=== PATIENT | female | born 1965 | race Caucasian/White ===

== ENCOUNTER 2019-06-13 15:34 | Emergency (ER) | payer OTHER, SELFPAY ==
[2019-06-13 16:13] VITALS: BP 123/63; PULSE 84; RESP 16; TEMP 37.6; O2SAT 99
--- NOTE | 2019-06-13 16:37 | ED.SKABFB ---
HPI - Skin/Abscess/Foreign Bdy General Chief complaint: Skin/Abscess/Foreign Body Stated complaint: R/ankle pain Time Seen by Provider: 06/13/19 16:21 Source: patient and RN notes reviewed Mode of arrival: ambulatory Limitations: no limitations History of Present Illness HPI narrative: Patient presents today complaining of 2 discolored areas, 1 to her right ankle, and 1 to her right anterior lower leg that have been present for at least 6 months. Over the past several weeks, these areas have become more painful. 2 months ago, she was seen at a dental laboratory supervisor at [facility] and was given some topical steroids to apply. Patient states she is having pain to the right leg. She currently rates his leg pain 10/10 and has been taking ibuprofen without relief. She does not currently have a primary care doctor. States she does have diabetes, but does not check her blood sugars and takes no medications for diabetes. History of right ankle fracture approximately 20 years ago and reports that 1 of these areas of pain is overlying a scar from her ankle reconstruction surgery. MD complaint: discoloration Related Data Allergies Allergy/AdvReac Type Severity Reaction Status Date / Time No Known Allergies Allergy Mild Verified 02/21/18 17:33 Review of Systems Review of Systems: Narrative: CONSTITUTIONAL: Denies body aches, fever, chills, or sweats. EYES: Denies visual changes, redness, or discharge. ENT: Denies rhinorrhea, congestion, sore throat, or otalgia. CARDIOVASCULAR: Denies chest pain, palpitations, or edema. RESPIRATORY: Denies cough or dyspnea. GASTROINTESTINAL: Denies abdominal pain, nausea, vomiting, or diarrhea. GENITOURINARY: Denies dysuria or hematuria. SKIN: + Right leg pain, discoloration to lower leg. MUSCULOSKELETAL: Denies back pain, joint pain, or myalgia. NEUROLOGIC: Denies headache, numbness, tingling, or weakness. PSYCH: Denies depression or anxiety. [facility] Past Medical History Medical History (Updated 06/13/19 @ 16:41 by Aarti Juarez, [employer], ) Diabetes Kidney stone Right ankle injury Comments At time of signature, I have reviewed and agree with nursing past medical, surgical, social and family history unless otherwise noted. Please see nursing chart for further information. There is no relevant family history pertinent to the presenting complaint Exam Narrative: Exam Narrative: GENERAL: Well-appearing, well-nourished, and in no acute distress. HEAD: Normocephalic, atraumatic. EYES: EOMI. No redness or drainage. Conjunctivae normal. ENT: Mucous membranes pink and moist. NECK: Normal AROM. CHEST: No respiratory distress. EXTREMITIES: No edema, ecchymosis, erythema to the legs. Distal sensation intact. Capillary refill normal. Pedal pulses normal. Patient has an approximately 2 x 5 cm area of hyperpigmentation to the right lateral malleolus that is tender to palpation without any signs of infection. No fluctuance noted. Patient has another area of similar size to the right anterior lower leg that is also tender. There is no surrounding erythema to either area. SKIN: Warm, dry, no rash. NEURO: No focal deficits. Alert and oriented x3. Gait steady. PSYCH: Normal affect. No signs of depression or anxiety. Course Vital Signs Vital signs: Vital Signs Temperature 99.6 F 06/13/19 16:13 Pulse Rate 84 06/13/19 16:13 Respiratory Rate 16 06/13/19 16:13 Blood Pressure 123/63 06/13/19 16:13 Pulse Oximetry 99 06/13/19 16:13 Temperature 99.6 F 06/13/19 16:13 Pulse Rate 84 06/13/19 16:13 Respiratory Rate 16 06/13/19 16:13 Blood Pressure 123/63 06/13/19 16:13 Pulse Oximetry 99 06/13/19 16:13 Reviewed. Pt has been instructed to follow up with her PCP regarding her elevated blood pressure today. MDM - Skin/Abscess/Foreign Bdy Differential Diagnosis Differential diagnosis: Likely abscess of skin or subcutaneous tissue, urticaria, herpes zoster, cellulitis,
== END 2019-06-13 16:48 | disposition home or self-care (01) ==
PROVIDERS: Emergency Provider Nurse Practitioner
DX: L81.9 Disorder of pigmentation, unspecified (principal); E11.9 Type 2 diabetes mellitus without complications
CPT/HCPCS: 99213; G0463

== ENCOUNTER 2019-10-02 08:27 | Emergency (ER) | payer OTHER, SELFPAY ==
--- NOTE | ~2019-10-02 | XR_ITS ---
EXAMINATION: XR chest 2V 10/02/2019 09:09 INDICATION: Wheezing and shortness of breath PROCEDURE: 2 view chest COMPARISON: Comparison to multiple prior studies sequentially, with oldest reviewed study dated 08/03. FINDINGS: The lungs are clear. The cardiomediastinal silhouette is within normal limits. There are no pleural effusions. There is no pneumothorax suspected. IMPRESSION: 1: NO ACUTE CARDIOPULMONARY DISEASE. Reviewed, dictated and finalized at location A.
[2019-10-02 08:37] VITALS: BP 143/90; PULSE 78; RESP 18; TEMP 37; O2SAT 97
--- NOTE | 2019-10-02 08:48 | ED.GENADULT ---
HPI - General Adult General Chief complaint: Upper Respiratory Infection Stated complaint: cough Time Seen by Provider: 10/02/19 08:48 Source: patient and RN notes reviewed Mode of arrival: ambulatory Limitations: no limitations History of Present Illness HPI narrative: 54-year-old female presents with complains of PND, intermittent dry and productive cough, wheezing, and dyspnea for the past 5 days. Albuterol inhaler without relief. History of Asthma. Symptoms started when she had an asthma attack in the [place] 5 days ago. Intermittent dry cough and productive cough (clear phlegm). Rhinorrhea and nasal congestion. Denies sore throat. No high fevers, drooling, neck or throat swelling. No chest pain. Exacerbation factors consist of change in weather and increase in pollen. The patient reports she have not been diagnosed with COVID-19. The patient reports she is not waiting for the results of a COVID-19 lab test. The patient reports she do not have fever, chills, weakness, fatigue, myalgia, or facial swelling. The patient reports she do not have a worsening cough or shortness of breath. Denies chest pain. The patient reports she do not have any nausea, vomiting, abdominal pain, and diarrhea. Tolerating po intake well. Denies recent traveling. Denies concerns for COVID-19 or exposures been home since [id number] order except for essential household needs, working, and return home. At this time, patient is not suspected of having COVID-19. Some parts of this dictation were generated by voice recognition software and may contain typographical and/or grammatical inaccuracies. Related Data Home Medications Medication Instructions Recorded Confirmed albuterol sulfate 1 inh INHALATION DAILY 10/02/19 10/02/19 Allergies Allergy/AdvReac Type Severity Reaction Status Date / Time No Known Allergies Allergy Mild Verified 10/02/19 08:44 Review of Systems Review of Systems: Narrative: CONSTITUTIONAL: Denies fever, chills, sweats. EYES: Denies visual changes, redness, discharge. ENT: Complains of PND, rhinorrhea, congestion. Denies sore throat, otalgia. CARDIOVASCULAR: Denies chest pain, palpitations, edema. RESPIRATORY: Complains of dyspnea, wheezing, intermittent dry and productive cough. GASTROINTESTINAL: Denies abdominal pain, nausea, vomiting, diarrhea. GENITOURINARY: Denies dysuria, hematuria, abnormal discharge. SKIN: Denies rash or itching. MUSCULOSKELETAL: Denies acute back pain, joint pain, or myalgia. NEUROLOGIC: Denies numbness or focal weakness. PSYCHIATRIC: Denies anxiety or depression. All systems reviewed & are unremarkable except as noted in HPI and below. ON LICENSE OF [facility] Past Medical History Medical History (Updated 10/02/19 @ 09:14 by NOHEMI Awan) Asthma Diabetes Kidney stone Right ankle injury Surgical History Surgical History (Updated 10/02/19 @ 09:09 by NOHEMI Awan) History of adenoidectomy History of ankle surgery RT ankle-1998 History of lithotripsy 2009 History of tonsillectomy Family History Family History (Updated 10/02/19 @ 09:09 by NOHEMI Awan) Father , Kidney problems No problems noted. Mother Acute myocardial infarction Heart disease Asthma Social History Social History (Updated 10/02/19 @ 09:12 by NOHEMI Awan) Smoking status: Former smoker Second hand tobacco smoke exposure: No Alcohol intake: never Substance use: never Gender identity (if verbalized by the patient): Female Comments At time of signature, agree with nurse past medical, surgical, social, and family history. There is no relevant family history pertinent to the presenting complaint. Exam Narrative: Exam Narrative: GENERAL: This is a well-nourished, well-developed patient, in no apparent distress. Talks in full sentences and ambulates with steady gait without dyspnea. HEAD: normocephalic, atraumatic. EYES: PERRL. Sc
[2019-10-02] MEDS: IPRATROPIUM BR 0.02% INH SOLN 0.5 MG/2.5 ML VIAL INHALATION (09:14)
[2019-10-02] MEDS: predniSONE 20 MG TABLET 60 MG PO (09:14)
[2019-10-02] MEDS: ALBUTEROL SULFATE NEB 2.5 MG/3 ML INH INHALATION (09:14)
--- NOTE | 2019-10-02 09:28 | PC.NURSE ---
28- Went to check on pt she was having a conversation on her cell phone. Re-educated pt on how to have a breathing treatment, mouth piece fully in mouth, with good deep breaths.
== END 2019-10-02 09:55 | disposition home or self-care (01) ==
PROVIDERS: Emergency Provider Nurse Practitioner Family
DX: J45.901 Unspecified asthma with (acute) exacerbation (principal); E11.9 Type 2 diabetes mellitus without complications; Z87.891 Personal history of nicotine dependence; R03.0 Elevated blood-pressure reading, without diagnosis of hypertension
CPT/HCPCS: 71046; 94640; 99213; G0463; J7512

== ENCOUNTER 2020-08-13 11:12 | Emergency (ER) | payer OTHER, SELFPAY ==
[2020-08-13] VITALS (9 sets, daily range): BP systolic 110–182; BP diastolic 84–93; PULSE 81–94; RESP 16–25; TEMP 36.4; O2SAT 98–100
--- NOTE | ~2020-08-13 | XR_ITS ---
EXAMINATION: XR chest 2V DATE: 08/13/2020 11:54 INDICATION: Left chest pain. TECHNIQUE: Frontal and lateral views of the chest were obtained. COMPARISON: Chest 2 views 10/02/2019, chest CT 08/24/2016 FINDINGS: The chest demonstrates clear lungs without pneumonia, pleural effusion, or pneumothorax. Th e heart size is normal. IMPRESSION: 1. No acute cardiopulmonary disease. Reviewed, dictated and finalized at location B.
--- NOTE | 2020-08-13 11:20 | ECG_ITS ---
Measurements Intervals [place] Rate: 91 P: 24 UT: 158 QRS: -19 QRSD: 96 T: 73 QT: 352 QTc: 434 Interpretive Statements SINUS RHYTHM BASELINE ARTIFACT- I, II, III, AVR, AVL, AVF, V1-V6 BORDERLINE ECG Electronically Signed On 08-13-2020 11:46:59 CDT by Dung Reyes D.O.
--- NOTE | 2020-08-13 11:31 | ED.CHESTPAIN ---
HPI - Chest Pain General Chief Complaint: Chest Pain Stated Complaint: chest pain x 3 days, heavy Time Seen by Provider: 08/13/20 11:23 History of Present Illness HPI narrative: Left sided chest pain for the past 4 days. Heavy. Radiates into the left arm and posterior neck. Associated with mild shortness of breath on activity. Worse with laeft arm movement, especially shoulder abduction. No cough, congestion, fever, nausea, injury. Related Data Home Medications Medication Instructions Recorded Confirmed No Home Medications 08/13/20 08/13/20 Allergies Allergy/AdvReac Type Severity Reaction Status Date / Time No Known Allergies Allergy Mild Verified 08/13/20 11:23 Review of Systems Review of Systems: All systems reviewed & are unremarkable except as noted in HPI and below Constitutional: Constitutional: Denies chills, Denies fever(s) and Denies weakness Eyes: Eyes: Reports no additional eye complaints ENT: Reports system reviewed and no additional complaints, except as documented Cardiovascular: Cardiovascular: Reports as per HPI Respiratory: Respiratory: Reports as per HPI Gastrointestinal: Gastrointestinal: Reports as per HPI Genitourinary: Genitourinary: Reports no additional female genitourinary complaints Musculoskeletal: Musculoskeletal: Reports as per HPI Neurologic: Denies confusion, Denies dizziness and Denies weakness [facility] Past Medical History Medical History Asthma Diabetes Kidney stone Right ankle injury Surgical History Surgical History History of adenoidectomy History of ankle surgery RT ankle-1998 History of lithotripsy 2009 History of tonsillectomy Family History Family History Father , Kidney problems No problems noted. Mother Acute myocardial infarction Heart disease Asthma Social History Social History Smoking status: Former smoker Second hand tobacco smoke exposure: No Alcohol intake: never Substance use: never Gender identity (if verbalized by the patient): Female Exam Const: General: no acute distress and alert Nutritional Appearance: obese Orientation/consciousness: patient oriented x3 HENMT: Head: normal to inspection Neck: Neck: normal visual inspection Chest: Chest palpation & inspection: tenderness pectoral muscle on the left Resp: Effort & Inspection: normal respiratory effort Auscultation: clear to auscultation bilaterally Cardio: Rate: regular rate Rhythm: regular rhythm GI: GI Palp: Yes Soft to palpation and No Tenderness to palpation present (GI) Skin: General skin exam: normal color Neuro: General: patient oriented x3, moves all extremities and CN's II-XI intact bilaterally Speech: normal speech Extrem: General: edema bilateral (trace) Course Vital Signs Vital signs: Vital Signs Temperature 36.4 C 08/13/20 11:20 Pulse Rate 91 08/13/20 11:20 Respiratory Rate 18 08/13/20 11:20 Blood Pressure 182/93 H 08/13/20 11:20 Pulse Oximetry 100 08/13/20 11:20 Temperature 36.4 C 08/13/20 11:20 Pulse Rate 94 08/13/20 11:24 Respiratory Rate 18 08/13/20 11:20 Blood Pressure 182/93 H 08/13/20 11:20 Pulse Oximetry 100 08/13/20 11:20 MDM - Chest Pain MDM Narrative Medical decision making narrative: Pain seems to be musculoskeletal, it is reproducible on palpation and worsens with arm movement. EKG completely normal. Troponin negative. Differential Diagnosis Differential diagnosis: Likely pneumothorax, unstable angina pectoris, atypical chest pain, st elevation myocardial infarction and chest pain Medical Records Data Attestation: I reviewed the patient's medical records. Lab Data Attestation: I reviewed the patient's lab results. Result
[2020-08-13 11:35] LABS: Basophils Percent Auto 0.3 % (0.2-1.2); Eosinophils Absolute Auto 0.4 K/mm3 (0-0.3); Eosinophils Percent Auto 5.4 % (0-4.4); Hematocrit 44.3 % (37.0-47.0); Hemoglobin 14.2 g/dL (12.0-15.0); Immature Granulocyte Absolute 0.01 K/mm3 (0.00-0.031); Immature Granulocyte Percent A 0.1 % (0-0.5); Lymphocytes Absolute Auto 2.57 K/mm3 (0.9-3.2); Lymphocytes Percent Auto 37.3 % (18.3-44.2); Mean Corpuscular HGB Conc 32.1 g/dl (32-36); Mean Corpuscular Hemoglobin 30.1 pg (26-34); Mean Corpuscular Volume 94.1 fl (80-100); Mean Platelet Volume 9.9 fl (7.4-10.4); Monocytes Absolute Auto 0.6 K/mm3 (0.1-0.6); Monocytes Percent Auto 8.7 % (2.6-8.5); Neutrophils Absolute Auto 3.3 K/mm3 (1.3-6.7); Neutrophils Percent Auto 48.2 % (45.5-73.1); Platelet Count Result 248 k/mm3 (150-375); Red Blood Count 4.71 M/mm3 (4.2-5.4); Red Cell Distribution Width 12.9 % (11.5-14.5); White Blood Count 6.9 K/mm3 (4.5-10.0)
[2020-08-13 11:48] LABS: INR 0.9; Prothrombin Time 12.6 Seconds (11.1-14.7)
[2020-08-13 11:49] LABS: Anion Gap 4 mmol/L (8-16); Blood Urea Nitrogen 19 mg/dL (7-17); Calcium 9.3 mg/dL (8.4-10.2); Carbon Dioxide 33 mmol/L (22-30); Chloride 103 mmol/L (98-107); Estimated CRCL calculation 79 ml/min; Estimated Glomerular Filt Rate 58; Glucose 112 mg/dL (65-105); Partial Thromboplastin Time 25.3 SECONDS (22.3-36.8); Potassium 4.1 mmol/L (3.4-5.0); Sodium 140 mmol/L (137-145)
[2020-08-13 12:02] LABS: Troponin I < 0.012 ng/mL (0.000-0.034)
[2020-08-13] MEDS: KETOROLAC 30 MG/ML VIAL (*BKC) IV PUSH (12:14)
== END 2020-08-13 12:46 | disposition home or self-care (01) ==
PROVIDERS: Emergency Provider Emergency Medicine; PCP Family Medicine
DX: R07.89 Other chest pain (principal); E11.9 Type 2 diabetes mellitus without complications; J45.909 Unspecified asthma, uncomplicated; Z87.442 Personal history of urinary calculi; Z87.891 Personal history of nicotine dependence; R94.31 Abnormal electrocardiogram [ECG] [EKG]
CPT/HCPCS: 36415; 71046; 80048; 84484; 85025; 85610; 85730; 93005; 96374; 99284; J1885

== ENCOUNTER 2020-12-20 08:10 | Outpatient (CLI) | payer OTHER, SELFPAY ==
--- NOTE | ~2020-12-20 | XR_ITS ---
EXAMINATION: XR chest 2V DATE: 12/20/2020 08:37 INDICATION: Persistent cough TECHNIQUE: PA and lateral views of the chest are obtained. COMPARISON: 08/13/2020 FINDINGS: The lungs are free of acute opacities. There is no pleural effusion or pneumothorax. The ca rdiomediastinal silhouette is normal. There is mild thoracic spondylosis. IMPRESSION: 1. No acute cardiopulmonary abnormality. Reviewed, dictated and finalized at location A.
== END 2020-12-20 08:11 | disposition home or self-care (01) ==
PROVIDERS: PCP Family Medicine; Visit Provider Physician Assistant
DX: R05 Cough (principal)
CPT/HCPCS: 71046

== ENCOUNTER 2021-09-26 12:07 | Emergency (ER) | payer OTHER, SELFPAY ==
[2021-09-26 12:32] VITALS: BP 129/79; PULSE 95; RESP 18; TEMP 36.7; O2SAT 99
--- NOTE | 2021-09-26 12:58 | ED.ANIMALBIT ---
HPI - Animal Bite General Chief Complaint: Skin/Abscess/Foreign Body Stated Complaint: cat bite Time Seen by Provider: 09/26/21 12:40 Source: patient Mode of arrival: ambulatory Limitations: no limitations History of Present Illness HPI narrative: 56-year-old female presents with cat bite to lateral aspect of left lower leg. Cat bite happened approximately 3 days ago. Reports that she brought her cat home from a procedure at the vet and was told that it might be irritable and the cat got into a fight with her son's cat. Reports that the cat ended up biting her leg and also scratched it. Patient reports that she had amoxicillin at home and has been taking that for 2 days. Reports that she noticed increase in pain and redness today. Is concerned she may need a different antibiotic. Tetanus is up-to-date. Ambulatory with steady gait. All systems reviewed and negative except as noted above. Related Data Allergies Allergy/AdvReac Type Severity Reaction Status Date / Time No Known Allergies Allergy Mild Verified 09/26/21 12:49 Review of Systems Review of Systems: CONSTITUTIONAL: Denies fever, chills, or sweats. EYES: Denies visual changes, redness, or discharge. ENT: Denies rhinorrhea, congestion, sore throat, or otalgia. CARDIOVASCULAR: Denies chest pain, palpitations, or edema. RESPIRATORY: Denies cough or dyspnea. GASTROINTESTINAL: Denies abdominal pain, nausea, vomiting, or diarrhea. GENITOURINARY: Denies dysuria or hematuria. SKIN: Denies rash or itching. Reports cat bite to left lower leg. MUSCULOSKELETAL: Denies back pain, joint pain, or myalgia. NEUROLOGIC: Denies headache, numbness, or weakness. PSYCHIATRIC: Denies anxiety or depression. All other systems reviewed are negative, except as documented in HPI. [facility] Past Medical History Medical History Asthma Diabetes Kidney stone Right ankle injury Surgical History Surgical History History of adenoidectomy History of ankle surgery RT ankle-1998 History of lithotripsy 2009 History of tonsillectomy Family History Family History Father , Kidney problems No problems noted. Mother Acute myocardial infarction Heart disease Asthma Social History Social History Smoking status: Former smoker Second hand tobacco smoke exposure: No Alcohol intake: never Substance use: never Gender identity (if verbalized by the patient): Female Comments At time of signature, agree with nursing past medical, surgical, social and family history. There is no relevant family history pertinent to the presenting complaint. Exam Narrative: GENERAL: This is a well-nourished, well-developed patient, in no apparent distress. HEAD: normocephalic, atraumatic. EYES: PERRL. Sclera clear/white. Vision is grossly intact. EARS: External ears normal NOSE: External nose normal NECK: Neck supple, non-tender without lymphadenopathy, masses or thyromegaly. CARDIOVASCULAR: Regular rate and rhythm without murmurs, gallops, or rubs. RESPIRATORY: Clear to auscultation. Breath sounds equal bilaterally. No wheezes, rales, or rhonchi. SKIN: warm, Dry, intact with no suspicious lesions or rash, good texture and turgor. Open wound, skin avulsion to lateral aspect left lower leg. Mild erythema and swelling. No drainage. Multiple superficial scratches surrounding bite. NEURO: awake, alert, and oriented to person, place and time. There were no obvious focal neurologic abnormalities. EXTREMITIES: Normal range of motion to all extremities. Extrem: Ankle/foot/toe images: 1. cat bite, open wound/skin avulsion 2. 3. 4. 5. Course Course Level of Care: Express Care Visit Vital Signs Vital signs: Vital Signs Temperature 3
== END 2021-09-26 13:04 | disposition home or self-care (01) ==
PROVIDERS: Emergency Provider Nurse Practitioner Family
DX: S81.802A Unspecified open wound, left lower leg, initial encounter (principal); W55.01XA Bitten by cat, initial encounter; Z87.891 Personal history of nicotine dependence; E11.9 Type 2 diabetes mellitus without complications; J45.909 Unspecified asthma, uncomplicated
CPT/HCPCS: 99213; G0463

== ENCOUNTER 2024-04-28 09:35 | Emergency (ER) | payer OTHER, SELFPAY ==
[2024-04-28 09:45] VITALS: BP 135/82; PULSE 103; RESP 19; TEMP 36.4; O2SAT 98
[2024-04-28 10:21] LABS: Influenza A QL RT-PCR Positive (Negative); Influenza B QL RT-PCR Negative (Negative); RSV RNA, RT-PCR Negative (Negative); SARS-CoV-2 RNA PCR Negative (Negative)
--- NOTE | 2024-04-28 11:01 | ED.GENADULT ---
HPI - General Adult General Chief complaint: Unspecified Stated complaint: nausea, sob, cant sleep, back pain, fever Time Seen by Provider: 04/28/24 11:01 Source: patient Mode of arrival: ambulatory Limitations: no limitations History of Present Illness HPI narrative: This is a 58-year-old female that presents to the emergency department for cold symptoms. Ongoing over the last 2 days. Reports fever, cough, congestion, nausea. Reports history of asthma and has been having to use her albuterol more often Related Data Allergies Allergy/AdvReac Type Severity Reaction Status Date / Time No Known Allergies Allergy Mild Verified 09/26/21 12:49 Review of Systems Review of Systems: CONSTITUTIONAL: Denies fever ENT: Reports congestion CARDIOVASCULAR: Denies chest pain RESPIRATORY: Reports cough and dyspnea. GASTROINTESTINAL: Reports nausea All systems reviewed & are unremarkable except as noted in HPI and below PMFSH Past Medical History Medical History Asthma Diabetes Kidney stone Right ankle injury Surgical History Surgical History History of adenoidectomy History of ankle surgery RT ankle-1998 History of lithotripsy 2009 History of tonsillectomy Family History Family History Father , Kidney problems No problems noted. Mother Acute myocardial infarction Heart disease Asthma Social History Social History Smoking status: Former smoker Second hand tobacco smoke exposure: No Alcohol intake: never Substance use: never Living arrangements: with family Occupation/Education: occupation Gender identity (if verbalized by the patient): Female Exam Narrative: GENERAL: Well-appearing, well-nourished, and in no acute distress. HEAD: Normocephalic, atraumatic. EYES: EOMI. ENT: Nares clear, no rhinorrhea or epistaxis. Mucous membranes moist. Oropharynx without tonsillar hypertrophy exudate or other lesions. NECK: Supple. No adenopathy or masses. CHEST: No respiratory distress. Lung sounds mildly diminished with wheezing. No rales or rhonchi HEART: Regular rate and rhythm. No murmur heard. Normal peripheral pulses. EXTREMITIES: Normal range of motion. No edema. SKIN: Warm, dry, no rash. NEURO: No focal deficits. Alert and oriented x3. PSYCH: Normal mood and affect Course Course Emergency Course: Patient agrees with plan of care. Updated on her workup Vital Signs Vital signs: Vital Signs Temperature 97.6 F 04/28/24 09:45 Pulse Rate 103 H 04/28/24 09:45 Respiratory Rate 19 04/28/24 09:45 Blood Pressure 135/82 04/28/24 09:45 Pulse Oximetry 98 04/28/24 09:45 Oxygen Delivery Room Air 04/28/24 09:45 Temperature 97.6 F 04/28/24 09:45 Pulse Rate 103 H 04/28/24 09:45 Respiratory Rate 19 04/28/24 09:45 Blood Pressure 135/82 04/28/24 09:45 Pulse Oximetry 98 04/28/24 09:45 Oxygen Delivery Room Air 04/28/24 09:45 Medical Decision Making MDM Narrative Medical decision making narrative: Patient presents the emergency department for cold symptoms present over the last 2 days. She is afebrile and nontoxic appearing. Lung sounds mildly diminished with some wheezing. Given nebulizer treatment and steroid. Oxygen saturation is normal on room air. Patient found to be influenza A positive. Will be started on Tamiflu and continued on oral steroid. She is to follow up with primary provider. She was given warnings to return to the ER Differential Diagnosis Differential Diagnosis: Influenza, RSV, COVID, viral syndrome, asthma exacerbation Vital Signs Vital Signs: Vital Signs Temperature 97.6 F 04/28/24 09:45 Pulse Rate 103 H 04/28/24 09:45 Respiratory Rate 19 04/28/24 09:45 Blood Pressure 135/82 04/28/24 09:45 Pulse Oximetry 98 04/28/24 09:45 Oxygen Delivery Room Air 04/28/24 09:45 Temperature 97.6 F 04/28/24 09:45 Pulse Rate 103 H 04/28/24 09:45 Respiratory Rate 19 04/28/24 09:45 Blood Pressure 135/82 04/28/24 09:45 Pulse Oximetry 98 04/28/24 09:45 Oxygen Delivery Room Air 04/28/24 09:45 Lab Data Lab results reviewed: Yes I reviewed the patient's lab results. Labs: Lab Results 04/28/24 Range/Units 09:41 Influenza A (RT-PCR) Positive A (Negative) Influenza B (RT-PCR) Negative (Negative) RSV (RT-PCR) Negative (Negative) SARS-CoV-2 RNA (RT-PCR) Negative (Negative) Critical Care Time Critical Care Time Critical Care Time: No Discharge Plan Discharge Clinical Impression: Influenza A Acute asthma exacerbation Qualifiers: Asthma severity: unspecified severity Asthma persistence: unspecified Qualified Code(s): J45.901 - Unspecified asthma with (acute) exacerbation Patient Disposition: Home, Self-Care Condition: Stable Instructions: Asthma (ED), Influenza (ED) Additional Instructions: Return to the emergency department for worsening symptoms, or any other concerns Remain well-hydrated, get plenty of rest. Take Tylenol or Motrin [id number] for pain as needed. Flonase for nasal congestion. Zyrtec for runny nose. Lozenges or Chloraseptic spray for sore throat. Take Tamiflu as prescribed. Albuterol 2 puffs every 4-6 hours as needed for shortness of breath or wheezing. Continue oral steroid Follow up with primary care doctor Patient Language: Icelandic Prescriptions: New prednisone 20 mg tablet 40 mg PO DAILY 4 Days Qty: 8 0RF albuterol sulfate 90 mcg/actuation HFA aerosol inhaler 2 puff inhalation QID PRN (Reason: shortness of breath or wheezing) Qty: 8.5 0RF No Action amoxicillin-pot clavulanate 875-125 mg tablet 1 tablet PO BID 5 Days Qty: 10 0RF Follow-up/Referrals: UNKNOWN,DOCTOR [Primary Care Provider] -
[2024-04-28 11:12] VITALS: PULSE 100; RESP 18
[2024-04-28] MEDS: IPRATROPIUM 0.5 MG/ALBUTEROL SULFATE 2.5 MG AMPUL.NEB 3 ML INHALATION (11:12)
[2024-04-28 11:17] VITALS: PULSE 97; RESP 20
[2024-04-28] MEDS: predniSONE 20 MG TABLET 40 MG PO (11:45)
--- OUTSIDE RECORDS SUMMARY | 2024-05-04 17:06 | XMS_ITS | Encounter Summary ---
Author Organization [facility] Address [address] [place] [address] [place] [address] Care Team Providers Care Storeperson Name Role Phone Unavailable Primary Care Provider Unavailabl e Encounter Details Date Type Department Care Team (Latest Contact Info) Description 01/17/2011 12:44 PM CDT - 01/17/2011 11:59 PM CDT Hospital Encounter [facility] MATERNAL/ EVALUATION UNIT [address] [facility]. [address] [place] [address] Morris Ko MD [address] [place] [address] Clinic Discharge Disposition: Home or Self Care Social History Tobacco Use Types Packs/Day Years Used Date Smoking Tobacco: Former Cigarettes 1.5 14 0 06/21/1994 - 06/21/2008 Alcohol Use Standard Drinks/Week Comments No 0 (1 standard drink = 0.6 oz pur e alcohol) Sex and Gender Information Value Date Recorded Sex Assigned at Not on file Gender Identity Not on file Sexual Orientation Not on file documented as of this encounter Last Filed Vital Signs Vital Sign Reading Time Taken Comments Blood Pressure 120/69 01/17/2011 12:55 PM CDT Pulse 87 01/17/2011 12:55 PM CDT Temperature - - Respiratory Rate 18 01/17/2011 12:55 PM CDT Oxygen Saturation - - Inhaled Oxygen Concentration - - Weight 110.7 kg (244 lb) 01/17/2011 12:55 PM CDT Height 170.2 cm (5' 7 ) 01/17/2011 12:55 PM CDT Body Mass Index 38.22 01/17/2011 12:55 PM CDT documented in this encounter Discharge Instructions * Patient Instructions* Sara Hall - 01/17/2011 3:52 PM CDT We are moving across the street([facility]) January [address] [place] [phone] documented in this encounter H&P Notes * Morris Ko MD - 01/17/2011 2:15 PM CDT R2 BRAND LEADER Problem Visit Subjective: Shantel Del Real is a 45 y.o. female who presents for pain in her lower abdomen and pelvis since her kidney stone removal in June of 2008. She describes it as moderate, dull, constant pain worse after her menses. She takes vicodin for it which are left over from her previous surgery. It is worse on her left side and is worse in back near her kidney. She urinates and it feels gritty and like sand paper. She has a brownish discharge with her menses. She also has night sweats. Denies sudden wt gain or loss. She also complains of a spot on her left groin which increases in size during her menses. Risk Factors: wears seatbelts and negative for domestic violence Wears seatbelt? yes History of abuse? no Urinary or fecal incontinence? No Sexual dysfunction? Yes, describes pain with penetration Obstetrical history: OB History Grav Para Term Abortions TAB SAB Ect Mult Living 3 2 2 1 1 2 Obstetric Comments Office Rn Hx: Menarche at 16, regular periods every month, admits that pap is always abnormal but denies cervical procedures including biopsies, denies STDs Last Pap: in the hospital in 2008 Contraception/HRT: S/p BTL Past Medical History Diagnosis Date ??? Pyelonephritis 2008 Denies history of depression/anxiety/bipolar/schizophrenia Family History Problem Relation Age of Onset ??? Hypertension Mother ??? Hypertension Father ??? Heart Failure Mother ??? 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 Smoking status: Former Smoker -- 1.5 packs/day for 14 years Types: Cigarettes Quit date: 06/21/2008 ??? Smokeless tobacco: Not on file ??? Alcohol Use: No ??? Drug Use: Not on file ??? Sexually Active: Yes -- Male partner(s) Control/ Protection: Tubal ligation 27 yrs Immunization history: Pt states she had her tetanus in 2008, declines influenza vaccine Review of Systems Denies any problems with HEENT Admits night sweats, denies wt changes Denies chest pain, shortness of breath Admits occasional dysuria, denies muscle or joint pain Denies n/v/d/c Admit swelling in right leg Denies depression/anxiety Denies heart palpitations Objective: PHYSICAL EXAM: Vitals: 01/17/11 1255 BP: 120/69 Pulse: 87 Resp: 18 Weight: 244 lb (110.678 kg) GEN: alert, cooperative, no distress THYROID: normal to inspection and palpation CV: RRR LUNG: CTAB ABDOMEN: obese, soft, nontender, no masses, +BS Lymph Nodes: no lymphadenopathy BREAST: normal appearance, no masses or tenderness EXT: no calf tenderness, right leg with 1+pitting edema, there is a 0.5cm mass near her groin on the left which is firm but does not feel cystic PELVIC: VULVA: normal appearing vulva with no masses, tenderness or lesions, URETHRAL MEATUS: normal, no masses URETHRA: normal, non tender BLADDER: non tender VAGINA: normal appearing vagina with normal color and discharge, no lesions, CERVIX: normal appearing cervix without discharge or lesions, UTERUS: uterus is normal size, shape, consistency, not tender, limited by body habitus, ADNEXA: limited by body habitus Wet prep with no pathgens, no clue cells or yeast Assessment: Problem visit BRAND LEADER Well woman BRAND LEADER female exam. Plan: 1. Pelvic pain 1. May be endometriosis as it gets worse with menses, lump in left leg is increased in size with menses, may need laparoscopy at some point to diagnose this 2. May be residual pain from recurrent kidney stones 3. Will check TVUS, renal ultrasound ordered and follow up in 3 wks 2. Kidney stones 1. Recurrent and familial 2. S/p lithotripsy in 2008 3. Gritty urination and sometimes pain on urination 4. Will check calcium, phosphorus, PTH 5. Will check renal ultrasound as above 6. Will send to medicine clinic for further work up which may include a 24 hr urine with calcium, Xray or CT 3. Pap/WWE: within normal limits; pap taken; pap guidelines reviewed 4. LMP 01/01/11, Contraception: BTL 5. STD testing: GC/CT sent, no 6. Depression denies 7. Wears seatbelt 8. Nutrition/Weight: no sudden wt changes, no trouble with diet 9. HTN: wnl today 10. Due to family history of thyroid disease and night sweats, will order TSH, T4 11. Return to clinic in 3 wks for follow up of results Discussed with Dr. Maikel Chawla MD 01/17/2011 3:28 PM New Office Rn Patient Note: Pt seen. History of Present Illness: Ms. Del Real is a 45 y.o. G 3 P 2 A 1 female who presents for annual exam and eval of lower abd pain/pelvic pain. Has a hx of kidney stones. Pain worsens with her menses. There are no active problems to display for this patient. Gynecologic history: No LMP recorded. Pap smear history: ? abnl Sexually transmitted diseases:none OB history: OB History Grav Para Term Abortions TAB SAB Ect Mult Living 3 2 2 1 1 2 # Outc Date GA Lbr Meliton/2nd Wgt Sex Del Anes PTL Lv 1 TRM 1987 F Yes 2 SAB 1994 3 TRM 1996 M Yes Obstetric Comments Office Rn Hx: Menarche at 16, regular periods every month, admits that pap is always abnormal but denies cervical procedures including biopsies, denies STDs Medical history: Past Medical History Diagnosis Date ??? Pyelonephritis 2008 Surgical history: Past Surgical History Procedure Date ??? Kidney stones, removal 2008 ??? Other surgery ankle ??? Bilateral tubal ligation (btl) 1996 Social history: History Social History ??? Marital Status: Spouse Name: N/A Number of Children: 2 ??? 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 Smoking status: Former Smoker -- 1.5 packs/day for 14 years Types: Cigarettes Quit date: 06/21/2008 ??? Smokeless tobacco: Not on file ??? Alcohol Use: No ??? Drug Use: Not on file ??? Sexually Active: Yes -- Male partner(s) Control/ Protection: Tubal ligation 27 yrs Other Topics Concern ??? Not on file Social History Narrative ??? No narrative on file Medications: No current outpatient prescriptions on file. Allergies: No Known Allergies Review of Systems: Negative Physical examination: See Resident Note for full details Vitals: 01/17/11 1255 BP: 120/69 Pulse: 87 Resp: 18 Weight: 244 lb (110.678 kg) Body mass index is 38.22 kg/(m^2). Assessment and Plan: I agree with the resident's documentation and plan of care. Obtain labs and US RTO 3 wks for results Morris Ko MD 01/17/2011 3:47 PM documented in this encounter Miscellaneous Notes * Miscellaneous Scans - Document, Scanned - 01/20/2011 7:41 AM CDT documented in this encounter Plan of Treatment Not on file documented as of this encounter Procedures Procedure Name Priority Date/Time Associated Diagnosis Comments URINALYSIS REFLEX TO MICROSCOPIC NO CULTURE Today 01/17/2011 3:45 PM CDT CULTURE URINE Today 01/17/2011 3:45 PM CDT CYTOLOGY CERVICAL/VAG PAP SCREEN THIN PREP Today 01/17/2011 3:40 PM CDT CHLAMYDIA + GC AMPLIFIED PROBE Today 01/17/2011 3:40 PM CDT PTH INTACT+CALCIUM Today 01/17/2011 3: 15 PM CDT PHOSPHORUS BLOOD Today 01/17/2011 3:15 PM CDT CALCIUM BLOOD Today 01/17/2011 3:15 PM CDT TSH Today 01/17/2011 3:15 PM CDT T4 FREE Today 01/17/2011 3:15 PM CDT documented in this encounter Results * US KIDNEYS/BLADDER (RETROPERITONEAL COMPLETE) (01/21/2011 11:00 AM CDT) Anatomical Region Laterality Modality Abdomen Ultrasound 01/21/2011 11:2 3 AM CDT Impressions 01/21/2011 11:23 AM CDT 1. Cortical thinning bilaterally, consider medical renal disease and consider correlation with renal function for further evaluation. Narrative 01/21/2011 11:23 AM CDT HISTORY: Flank pain, history nephrolithiasis. Complete retroperitoneal ultrasound 01/21/2011. FINDINGS: The right kidney measures 10.7 x 4.6 x 5.9 cm and the left kidney measures 11.3 x 6.1 x 6.0 cm. Cortical thinning is present bilaterally with the cortices measuring less than 5.0 mm in thickness. The kidneys are normal in texture, echogenicity and corticomedullary differentiation. No mass, perinephric fluid, hydronephrosis or calculus is demonstrated. The urinary bladder is sonographically unremarkable. Procedure Note Heri Clancy MD - 01/21/2011 HISTORY: Flank pain, history nephrolithiasis. Complete retroperitoneal ultrasound 01/21/2011. FINDINGS: The right kidney measures 10.7 x 4.6 x 5.9 cm and the left kidney measures 11.3 x 6.1 x 6.0 cm. Cortical thinning is present bilaterally with the cortices measuring less than 5.0 mm in thickness. The kidneys are normal in texture, echogenicity and corticomedullary differentiation. No mass, perinephric fluid, hydronephrosis or calculus is demonstrated. The urinary bladder is sonographically unremarkable. IMPRESSION 1. Cortical thinning bilaterally, consider medical renal disease and consider correlation with renal function for further evaluation. Ana Chawla MD US ORDERABLES * CULTURE URINE (01/17/2011 3:45 PM CDT) Result [facility] Comment: Final CULTURE <10,000 CFU/mL urogenital/skin tita Urine specimen (specimen) URINE SPECIMEN OBTAINED BY CLEAN CATCH PROCEDURE / Unknown 01/17/2011 3:45 PM CDT 01/17/2011 5:19 PM CDT Narrative Resulting Agency Comment Performed By [facility];[address] [place] [address];[place] [address] Ana Chawla MD LAB - MICROBIOLOGY O RDERABLES Performing Organization Address [facility] Co de Phone Number [facility] [address] [place] [phone] * (ABNORMAL) URINALYSIS ROUTINE AUTO (01/17/2011 3:45 PM CDT) Source Clean Catch [facility] Color UA Yellow [facility] Character UA Clear [facility] Glucose UA NEGATIVE NEGATIVE mg/dl [facility] Bilirubin UA NEGATIVE NEGATIVE [facility] Ketone UA 15(H) NEGATIVE mg/dl [facility] Specific [place] UA 1.025 1.003 - 1.030 [facility] Blood UA NEGATIVE NEGATIVE [facility] pH UA 6.0 5.0 - 9.0 [facility] Protein UA NEGATIVE NEGATIVE-TR ADRIANA mg/dl [facility] Urobilinogen UA 0.2 0.2 - 1.0 Liang Units/dl [facility] Nitrite UA NEGATIVE NEGATIVE [facility] Leukocyte UA NEGATIVE NEGATIVE [facility] URINE SPECIMEN OBTAINED BY CLEAN CATCH PROCEDURE / Unknown 01/17/2011 3:45 PM CDT 01/17/2011 5:19 PM CDT Ana Chawla MD LAB - URINALYSIS ORD ERABLES Performing Organization Address [facility] Co de Phone Number [facility] [address] [place] [phone] * CHLAMYDIA + GC AMPLIFIED PROBE (01/17/2011 3:40 PM CDT) Chlamydia trachomatis Amplified Probe NEGATIVE [facility] GC Amplified Probe NEGATIVE [facility] Comment Amplified Probe [facility] Comment: Comments and Normal Ranges for Component ??Amplified Probe Comment Results based on detection/no detection of ribosomal RNA by amplified method. ENTIRE ENDOCERVIX / Unknown 01/17/2011 3:40 PM CDT 01/17/2011 4:46 PM CDT Narrative Resulting Agency Comment Performed By [facility] ? [address] ? [place] [address] Ana Chawla MD LAB - MICROBIOLOGY O RDERABLES Performing Organization Address [facility] de Phone Number [facility] [address] [place] [address] * CYTOLOGY CERVICAL/VAG SCREEN THIN PREP (01/17/2011 3:40 PM CDT) Comment Thin Prep [facility] Pap Smear Report See Scanned Report [facility] ENTIRE ENDOCERVIX / Unknown 01/17/2011 3:40 PM CDT 01/17/2011 4:45 PM CDT Narrative Resulting Agency Comment Performed By [facility] ? [address] ? [place], [place] ??[address] Ana Chawla MD LAB - PATHOLOGY/CYTO LOGY ORDERABLES Performing Organization Address [facility] de Phone Number [facility] [address] [place] [address] * PHOSPHORUS BLOOD (01/17/2011 3:15 PM CDT) Phosphorus 2.9 2.5 - 4.9 mg/dl [facility] BLOOD SPECIMEN / Unknown 01/17/2011 3:15 PM CDT 01/17/2011 4:56 PM CDT Ana Chawla MD LAB - CHEMISTRY SATISH COBB Performing Organization Address [facility] de Phone Number [facility] [address] [place] [address] * CALCIUM BLOOD (01/17/2011 3:15 PM CDT) Calcium 9.0 8.5 - 10.1 mg/dl [facility] BLOOD SPECIMEN / Unknown 01/17/2011 3:15 PM CDT 01/17/2011 4:56 PM CDT Ana Chawla MD LAB - CHEMISTRY SATISH COBB Performing Organization Address [facility] Co de Phone Number [facility] [address] [place] [phone] * PTH INTACT PANEL (01/17/2011 3:15 PM CDT) PTH Intact 32.6 14 - 72 pg/ml [facility] Calcium PTH Intact 9.1 8.4 - 10.2 mg/dl [facility] BLOOD SPECIMEN / Unknown 01/17/2011 3:15 PM CDT 01/17/2011 4:56 PM CDT Ana Chawla MD LAB - CHEMISTRY SATISH COBB Performing Organization Address [facility] Co de Phone Number [facility] [address] [place] [phone] * T4 FREE (01/17/2011 3:15 PM CDT) T4 Free 1.11 0.65 - 1.34 ng/dl [facility] BLOOD SPECIMEN / Unknown 01/17/2011 3:15 PM CDT 01/17/2011 4:56 PM CDT Ana Chawla MD LAB - CHEMISTRY SATISH COBB Performing Organization Address [facility] de Phone Number [facility] [address] [place] [phone] * TSH (01/17/2011 3:15 PM CDT) Pathologist [facility] TSH 1.63 0.358 - 3.74 uIU/ml [facility] BLOOD SPECIMEN / Unknown 01/17/2011 3:15 PM CDT 01/17/2011 4:56 PM CDT Ana Chawla MD LAB - CHEMISTRY SATISH COBB Performing Organization Address [facility] Co de Phone Number [facility] [address] [place] [phone] documented in this encounter Visit Diagnoses Diagnosis Routine gynecological examination Kidney stone Calculus of kidney Kidney stone Calculus of kidney documented in this encounter
--- OUTSIDE RECORDS SUMMARY | 2024-05-04 17:06 | XMS_ITS | Encounter Summary ---
Author Organization [facility] Address [facility]. [place], [place] [id number] [place] [address] Care Team Providers Care Terrazzo Layer Helper Name Role Phone Carmina Lopez MD Primary Care Provider + Encounter Details Date Type Department Care Team (Latest Contact Info) Description 12/05/2023 Travel Social History Tobacco Use Types Packs/Day Years Used Date Smoking Tobacco: Former Cigarettes 0.5 44 S tarted: 1980 Smokeless Tobacco: Never Comments:Stopped 2013. 0.5 p pd for 40 years Alcohol Use Standard Drinks/Week Comments Never 0 (1 standard drink = 0.6 oz pur e alcohol) PHQ-2 Answer Date Recorded Patient Health Questionnaire-2 Score 0 11/22/2023 Comments No Sex and Gender Information Value Date Recorded Sex Assigned at Not on file Legal Sex Female 4:57 PM CDT Gender Identity Not on file Sexual Orientation Not on file documented as of this encounter Plan of Treatment Not on file documented as of this encounter Visit Diagnoses Not on filedocumented in this encounter Care Teams Terrazzo Layer Helper Relationship Specialty Start Date End Date Carmina Lopez MD [address] [place] [phone] PCP - General FAMILY PRACTICE 11/22/23 documented as of this encounter
--- OUTSIDE RECORDS SUMMARY | 2024-05-04 17:06 | XMS_ITS | Encounter Summary ---
Author Organization [facility] Address [facility] [place] [address] [place] [address] Care Team Providers Care Hammer Runner Name Role Phone Carmina Lopez MD Primary Care Provider + Encounter Details Date Type Department Care Team (Latest Contact Info) Description 03/17/2024 Travel Social History Tobacco Use Types Packs/Day Years Used Date Smoking Tobacco: Former Cigarettes 0.5 44 S tarted: 1980 Passive Smoke Exposure: Past Smokeless Tobacco: Never Comments:Stopped 2013. 0.5 p [...] on filedocumented in this encounter Care Teams Hammer Runner Relationship Specialty Start Date End Date Carmina Lopez MD [address] [facility] [address] [place] [phone] PCP - General FAMILY PRACTICE 11/22/23 documented as of this encounter
--- OUTSIDE RECORDS SUMMARY | 2024-05-04 17:06 | XMS_ITS | Referral Summary ---
Author Organization [facility] Address [address] [place] [address] Care Team Providers Care Real Estate Marketing Coordinator Name Role Phone Unavailable Primary Care Provider Unavailabl e Source Comments [facility] Affiliates and Associated Physician Practices is amultiple site organization consisting of ambulatory clinics and hospital sitesin [place], [place], [place] and [place]. This disclosure is being madepursuant to the Care Everywhere program and may not contain all information available regarding this patient. Last updated 18.[facility] Health Allergies No known active allergies Social History Tobacco Use Types Packs/Day Years Used Date Smoking Tobacco: Former Cigarettes 1.5 14 0 06/21/1994 - 06/21/2008 Alcohol Use Standard Drinks/Week Comments No 0 (1 standard drink = 0.6 oz pur e alcohol) Sex and Gender Information Value Date Recorded Sex Assigned at Not on file Gender Identity Not on file Sexual Orientation Not on file Last Filed Vital Signs Vital Sign Reading Time Taken Comments Blood Pressure 117/78 02/10/2011 12:00 PM CDT Pulse 87 01/17/2011 12:55 PM CDT Temperature - - Respiratory Rate 18 01/17/2011 12:55 PM CDT Oxygen Saturation - - Inhaled Oxygen Concentration - - Weight 111.1 kg (245 lb) 02/10/2011 12:00 PM CDT Height 170.2 cm (5' 7 ) 01/17/2011 12:55 PM CDT Body Mass Index 38.37 01/17/2011 12:55 PM CDT Plan of Treatment Not on file Procedures Procedure Name Priority Date/Time Associated Diagnosis Comments CYTOLOGY CERVICAL/VAG PAP SCREEN THIN PREP Today 01/17/2011 3:40 PM CDT from Last 3 Months or Most Recently Relevant to Health Maintenance Results * CYTOLOGY CERVICAL/VAG SCREEN THIN PREP (01/17/2011 3:40 PM CDT) Comment Thin Prep [facility] Pap Smear Report See Scanned Report [facility] ENTIRE ENDOCERVIX / Unknown 01/17/2011 3:40 PM CDT 01/17/2011 4:45 PM CDT Narrative Resulting Agency Comment Performed By [facility] ? [address] ? [place], [place] ??[address] Ana Chawla MD LAB - PATHOLOGY/CYTO LOGY ORDERABLES [facility] [address] [place] [address] from Last 3 Months or Most Recently Relevant to Health Maintenance
--- OUTSIDE RECORDS SUMMARY | 2024-05-04 17:06 | XMS_ITS | Encounter Summary ---
Author Organization [facility] Address [address] [place] [address] [place] [address] Care Team Providers Care Embedded Systems Designer Name Role Phone Unavailable Primary Care Provider Unavailabl e Encounter Details Date Type Department Care Team (Latest Contact Info) Description 02/10/2011 11:46 AM CDT - 02/10/2011 11:59 PM CDT Hospital Encounter [facility] MATERNAL/ EVALUATION UNIT [address] [facility] [place] [address] Deann Cope MD [address] [facility] [address] [place] [address] Obstetrics Discharge Disposition: Home or Self Care Social [...] Pressure 117/78 02/10/2011 12:00 PM CDT Pulse - - Temperature - - Respiratory Rate - - Oxygen Saturation - - Inhaled Oxygen Concentration - - Weight 111.1 kg (245 lb) 02/10/2011 12:00 PM CDT Height - - Body Mass Index 38.37 01/17/2011 12:55 PM CDT documented in this encounter Discharge Instructions * Patient Instructions* Ana Chawla MD - 02/10/2011 1:16 PM CDT Please keep a pain diary and record when, where, and how often the pain is coming and any associated activities, food, or menstrual cycle and return to the clinic sooner if your symptoms increase. documented in this encounter Progress Notes * Hollie Lara MD - 02/10/2011 1:18 PM CDT 02/10/2011, 1:18 PM R2 GENERAL INTERNIST AND PHYSICIAN LEADER Follow up CC: Follow up pelvic pain HPI: 45 y.o. female presents for follow up. She was previously seen for her WWE and had pelvic pain which was present since her lithotripsy in June of 2008. The pain was worse with menses, dull and constant. She also complained of feeling grittiness in her urine. Today at follow up she states she had her menses a little over 1 wk prior to her TVUS. She denies any pain since her last visit. I explained that her results came back wnl last visit except for the finding of cortical thinningin her kidneys which will need to be followed up by Medicine, especially due to her family history of kidney disease and kidney stones as well as personal history of kidney stones. She denies any abnormal bleeding in between menses and regular cycles. Objective: BP 117/78 Wt 245 lb (111.131 kg) Physical Exam: General: alert, cooperative, no distress Lungs: clear to auscultation bilaterally Heart: regular rate and rhythm Abdomen: soft without mass, non-tender, with normal bowel sounds Lab Review: Component Name 01/17/11 1515 TSH 1.63 Component Name 01/17/11 1515 T4FREE 1.11 Component Name 01/17/11 1545 COLORUA Yellow CHARACTERUA Clear SPECGRAVUA 1.025 PHUA 6.0 PROTEINUA NEGATIVE BLOODUA NEGATIVE LEUKOCYTEUA NEGATIVE NITRITEUA NEGATIVE GLUCOSEUA NEGATIVE KETONEUA 15* BILIRUBINUA NEGATIVE UROBILINUA 0.2 Urine culture negative Component Name 01/17/11 1515 SODIUM -- POTASSIUM -- CHLORIDE -- CO2 -- BUN -- CREATININE -- GLUCOSE -- CALCIUM 9.0 ALBUMIN -- ALKPHOS -- ALT -- AST -- TBIL -- TPROT -- EGFR -- Component Name 01/17/11 1515 PHOS 2.9 Component Name 01/17/11 1515 CALCIUM 9.0 FINDINGS: Pelvic ultrasound demonstrates a uterus measuring 9.3 x 4.6 x 5.1 cm. No free fluid is present within the pelvis. Transvaginal ultrasound demonstrates an endometrial stripe measuring 16.0 mm in diameter. The endometrial stripe is uniform and no intrauterine fluid is present. No mass is present within the uterus. The right ovary measures 3.3 x 2.2 x 2.5 cm. Color Doppler and waveform characteristics are unremarkable. A simple cyst is present measuring 1.1 cm in diameter. Texture and echogenicity are otherwise normal. The left ovary could not be visualized. IMPRESSION 1. Thickening of the endometrial stripe, consider endometrial biopsy for further evaluate. 2. Nonvisualization of the left ovary. 3. Simple right ovarian cyst. FINDINGS: The right kidney measures 10.7 x [...] correlation with renal function for further evaluation. Assessment/Plan: 45 y.o. female here for follow up for pelvic pain 1. Pelvic pain 1. Resolved since last visit 2. May be endometriosis as it gets worse with menses, lump in left leg is increased in size with menses, may need laparoscopy at some point to diagnose this 3. Ruled out kidney stones with TVUS and renal ultrasound 4. Sister has IBS, but pt states she has had no trouble with constipation or her bowels currently 5. Recommend a pain diary and return to clinic if the pain returns 2. Kidney stones 1. Recurrent and familial 2. S/p lithotripsy in 2008 3. Calcium, phosphorus, PTH wnl 4. Renal ultrasound results as above, recommend follow up with PCP for further work up of possible kidney disease 3. Pap wnl 4. TSH, T4 wnl 5. Return to clinic in 1 year if no further pelvic pain for WWE, otherwise call for an appointment when symptoms return. Discussed with Dr. Romi Chawla MD 02/10/2011 1:18 PM GENERAL INTERNIST AND PHYSICIAN LEADER Clinic Attending Note: I reviewed the history and physical exam findings with Dr. Chawla at the time of the visit. Agree with Dr. Chawla's note as documented, except as noted. In summary, 45 y.o. here for follow up for pelvic pain. Pain has resolved since last visit.No urinary symptoms other that gritty urine. No GI complaints. Please see residents' notes/record for further details. Physical exam per Dr. Chawla BP 117/78 Wt 245 lb (111.131 kg) Normal exam Lab work and US findings reviewed--see Dr. Chawla's note. The final assessment & plan are: Pelvic pain--resolved. Pt to keep a pain diary and return if needed. Renal cortical thinning--f/u with medicine. Hollie Tamayo M.D. documented in this encounter Miscellaneous Notes * Miscellaneous Scans - Document, Scanned - 02/15/2011 12:58 PM CDT documented in this encounter Plan of Treatment Not on file documented as of this encounter Visit Diagnoses Diagnosis Routine gynecological examination documented in this encounter
--- OUTSIDE RECORDS SUMMARY | 2024-05-04 17:06 | XMS_ITS | Encounter Summary ---
Author Organization [facility] Address [address] [facility] [place] [address] Care Team Providers Care Acute Specialist Name Role Phone Unavailable Primary Care Provider Unavailabl e Encounter Details Date Type Department Care Team (Latest Contact Info) Description 01/21/2011 12:01 AM CDT - 01/21/2011 11:02 AM CDT Hospital Encounter [facility] Imaging Services [address] [place] [address] Ana Chawla MD [address] [place] [address] Medical Outpatient Discharge Disposition: Home or Self Care Social [...] Procedure Name Priority Date/Time Associated Diagnosis Comments US PELVIS W TRANSVAG NON OB Routine 01/21/2011 11:23 AM CDT Kidney stone Unspecified symptom associated with female genital organs documented in this encounter Results * US PELVIS WITH TRANSVAG NON OB (01/21/2011 11:23 AM CDT) Anatomical Region Laterality Modality Pelvis Ultrasound 01/21/2011 11:3 6 AM CDT Impressions 01/21/2011 11:36 AM CDT 1. Thickening of the endometrial stripe, consider endometrial biopsy for further evaluate. 2. Nonvisualization of the left ovary. 3. Simple right ovarian cyst. Narrative 01/21/2011 11:36 AM CDT HISTORY: Pelvic pain. Pelvic and transvaginal ultrasound 01/21/2011. FINDINGS: Pelvic ultrasound demonstrates a uterus measuring 9.3 x 4.6 x 5.1 cm. No free fluid is present within the pelvis. Transvaginal ultrasound demonstrates an endometrial stripe measuring 16.0 mm in diameter. The endometrial stripe is uniform and no intrauterine fluid is present. No mass is present within the uterus. The right ovary measures 3.3 x 2.2 x 2.5 cm. ??Color Doppler and waveform characteristics are unremarkable. ??A simple cyst is present measuring 1.1 cm in diameter. Texture and echogenicity are otherwise normal. The left ovary could not be visualized. Procedure Note Heri Clancy MD - 01/21/2011 HISTORY: Pelvic pain. Pelvic and transvaginal ultrasound 01/21/2011. FINDINGS: Pelvic ultrasound demonstrates a uterus measuring [...] left ovary. 3. Simple right ovarian cyst. Ana Chawla MD US ORDERABLES documented in this encounter Visit Diagnoses Diagnosis Kidney stone Calculus of kidney Unspecified symptom associated with female genital organs documented in this encounter
--- OUTSIDE RECORDS SUMMARY | 2024-05-04 17:06 | XMS_ITS | Encounter Summary ---
Author Organization [facility] Address [facility] [facility]. [place], [place] [address] [place] [id number] Care Team Providers Care Best Worker Name Role Phone Carmina Walters MD Primary Care Provider + Reason for Referral * Consultation/Treatment (Urgent) - New Request Specialty Diagnoses / Procedures Referred By Adebayo alanis Referred To Contact GENERAL SURGERY / SURGERY Diagnoses Ankle wound, right, initial encounter Procedures OFFICE/OUTPATIENT NEW LOW MDM 30-44 MINUTES OFFICE/OUTPT VISIT,NEW,LEVL IV OFFICE/OUTPT VISIT,NEW,LEVL V OFFICE/OUTPT VISIT,EST,LEVL III OFFICE/OUTPT VISIT,EST,LEVL IV OFFICE/OUTPT VISIT,EST,LEVL V Carmina Walters MD [address] [address] Phone: tel: [place]: [place] [address] [address] Phone: tel: fax: Referral ID Status Reason Start Date Expiration Date V isits Requested Visits Authorized [id number] New Request 03/17/2024 04/18/2025 1 1 LOGIST Reason for Visit * Reason Comments Ankle Right ankle - wound issues. She itched it so much, but broke it open. Onset- 2 days ago. Draining some. Encounter Details Date Type Department Care Team (Late st Contact Info) Description 03/17/2024 10:30 AM SEXOLOGIST Office Visit [facility] - [place] [address] [place] [id number] Carmina Walters MD [address] [place] [address] Ankle (Right ankle - wound issues. She itched it so much, but broke it open. Onset- 2 days ago. Draining some. ) Social History Tobacco Use Types Packs/Day Years Used Date Smoking Tobacco: Former Cigarettes 0.5 46 S tarted: 1980 Passive Smoke Exposure: Past Smokeless Tobacco: Never Tobacco Cessation:Counseling Given: No Comments:Stopped 2012. 0.5 ppd for 40 years Alcohol Use Standard Drinks/Week [...] Sign Reading Time Taken Comments Blood Pressure 135/84 03/17/2024 10:40 AM SEXOLOGIST Pulse 89 03/17/2024 10:40 AM SEXOLOGIST Temperature 36.4 ??C (97.5 ??F) 03/17/2024 10:[address] Respiratory Rate 20 03/17/2024 10:40 AM SEXOLOGIST Oxygen Saturation 98% 03/17/2024 10:40 AM SEXOLOGIST Inhaled Oxygen Concentration - - Weight 124 kg (273 lb 6.4 oz) 03/17/2024 10:40 A M SEXOLOGIST Height 170.2 cm (5' 7 ) 03/17/2024 10:40 AM SEXOLOGIST Body Mass Index 42.82 03/17/2024 10:40 AM SEXOLOGIST documented in this encounter Patient Instructions * Attachments The following attachments cannot be sent through Care Everywhere. * Wound Infection (Swiss) documented in this encounter Progress Notes * Carmina Walters MD - 03/17/2024 10:30 AM CSTSummary: acute SUBJECTIVE: Shantel Del Real is a 58-year-old year old female who presents for acute concern, leg wound. Reports she scratched her ankle badly in her sleep. Now the area is very painful, burning and itchy. She notes a wound and has been covering with bandage. No topicals. History of ankle surgery with hardware fairly superficial to the skin. No fevers, chills. Concerned with holiday approaching. No problems updated. Review of Systems Per HPI Patient's past medical history, medications, allergies, family history, and social history reviewedand updated in Epic chart as necessary. Patient Active Problem List Diagnosis Bite by animal Class 3 severe obesity in adult ([facility]) Prediabetes Current Outpatient Medications: albuterol sulfate HFA 108 (90 Base) MCG/ACT inhaler, INHALE 2 PUFFS BY MOUTH EVERY 4 HOURS (FOR RESCUE ONLY), Disp: , Rfl: No Known Allergies Past Surgical History: Procedure Laterality Date FRACTURE SURGERY JOINT REPLACEMENT LITHOTRIPSY TUBAL LIGATION OBJECTIVE: There were no vitals filed for this visit. Physical Exam Constitutional: Appearance: Normal appearance. Skin: Comments: 1 cm x 2 cm wound with slough on wound bed. No granulation tissue of the wound visible. No surrounding erythema. Brown discoloration of the skin surrounding the wound. Former well healed incision present. Burning sensation subjectively when touching skin surrounding the wound. Neurological: Mental Status: She is alert. ASSESSMENT & PLAN: Shantel Del Real is a 58-year-old female presents to discuss with following. Right ankle wound. Initial encounter. Possible early cellulitis. Will treat with cephalexin and initiate wound care therapy. Pt informed on signs/symptoms which would warrant additional testing. Problem List Items Addressed This Visit None Lab: None Specified No follow-ups on file. CARMINA WALTERS MD Family Practice LOGIST documented in this encounter Plan of Treatment Scheduled Referrals Name Type Priority Associated Diagnoses Orde r Schedule Ambulatory referral to General Surgery Referral Routine Ankle wound, right, initial encounter Ordered: 03/17/2024 documented as of this encounter Visit Diagnoses Diagnosis Ankle wound, right, initial encounter- Primary documented in this encounter Care Teams Best Worker Relationship Specialty Start Date End Date Carmina Walters MD [address] [facility] [address] [place] [id number] PCP - General FAMILY PRACTICE 11/22/23 documented as of this encounter
--- OUTSIDE RECORDS SUMMARY | 2024-05-04 17:06 | XMS_ITS | Continuity of Care Document ---
Author Organization AL - [facility] Podiatry Garrett Potts Address [address] [place] [address] Assessment Encounter Date Assessment Date Assessment LastModified by Organization Details LastModified Time 03/31/2024 03/31/2024 This note is dictated and transcribed by [employer]. [employer] variances may occur. Despite proofreading, typographical errors may occur. Occasional wrong-word or '[id number]' substitutions may have occurred due to the inherent limitations of voice recording. Read the chart carefully and recognize, using context, where substitutions have occurred. [email or web address] Not available 04/01/2024 09:18:12 Plan of Treatment Reminders Order Date Submit Date Provider Last Modified By Organization Details Last Modified Time Details Appointments None record ed. Lab None record ed. Referral None record ed. Procedures None record ed. Surgeries None record ed. Imaging XR, ankle, 3 or more view 024 04/01/20 24 [email or web address] [facility] Podiatry Garrett Potts, [address], [place], [address], 09:22:08 Medication Orders None record ed. Patient TargetsNo targets recorded. Patient InstructionsNo instructions recorded. Reason for Referral None Reported. Results Created Date Observation Date Name Description Value Unit Range Abnormal Flag Note LastModifiedBy Organization Detail LastModifiedTime 04/01/20 XR, ankle , 3 or more view No observ ation record ed. [email or web address] [facility] Podiatry Garrett Potts [address], [place], [address], 04/01/2024 09:22:08 Result Notes None recorded. Problems Name Problem SNOMED Code Status Onset Date Resolution Date Notes Provider Name and Address Organization Details Recorded Time Asthma 455119532 Active Not Available [facility] 3 17:43:27 Localized, secondary osteoarthr itis of the ankle and/or foot 342553832 Active 2021 Not Available [facility] 3 17:43:27 Ankle pain 799911636 Active 2021 Not Available [facility] 3 17:43:27 Ankle pain 432759099 Active Not Available [facility] 3 17:43:27 Orthopedic hardware in situ 115941382 Active 2021 Not Available [facility] 3 17:43:27 Peripheral venous insufficie ncy 08705876 Active 2023 Maycol Mcguire DPM [address], [place], [address] , [employer] 4 09:19:08 Open wound of right ankle 8184927245623 9103 Active 2023 Maycol Mcguire DPM [address], [address], [place], [address] , [employer] 4 09:20:26 Problem Notes None recorded. Procedures Surgical History Date Name Laterality Status Provider Name and Address Organization Details Recorded Time 4 Wound Care-Podiatry completed Tanvi Romero RN [employer] 04/09/2024 12:50:43 9 Unlisted px femur/knee completed Not Available [facility] 06/21/2022 17:42:59 Imaging Results Imaging Date Name Status LastModified by Organiz ation Details LastModified Time 04/01/2024 XR, ankle, 3 or more view completed [email or web address] [facility] Podiatry Garrett Potts [address], [place], [address], 04/01/2024 09:22:08 Procedure Notes None recorded. Medical Equipment None Reported. Medications Name Sig Start Date Stop Date Status Note LastModified by Organization Details LastModified Time celecoxib 200 mg capsule Take 1 capsule every day by oral route for 30 days. 03/31 completed Not Available Not Available Not Available cyclobenzap rine 10 mg tablet Take 1 tablet every day by oral route at bedtime. 03/31 completed Not Available Not Available Not Available prednisone 10 mg tablet 03/31 completed Not Available Not Available Not Available albuterol sulfate 2.5 mg/3 mL (0.083 %) solution for nebulizatio n Inhale 3 mL every 8 hours by nebulizat ion route as needed. 2021 active Not Available Not Available Not Avai lable azithromyci n 250 mg tablet 07/21 completed Not Available Not Available Not Available fluconazole 150 mg tablet 03/31 completed Not Available Not Available Not Available prednisone 20 mg tablet TAKE 2 TABLETS BY MOUTH TWICE DAILY FOR 2 DAYS THEN 1 TWICE DAILY FOR 5 DAYS THEN 1/2 (ONE-HALF ) TWICE DAILY FOR 2 DAYS THEN 1/2 (ONE-HALF ) ONCE DAILY FOR 1 DAY TAKE SECOND DOSE TABLET AT NOON EVERYDAY 03/31 completed Not Available Not Available Not Available tramadol 50 mg tablet Take 1 tablet every 6 hours by oral route as needed, for wound pain. 2023 active Not Available Not Available Not Avai lable amoxicillin 875 mg tablet 07/21 completed Not Available Not Available Not Available meclizine 25 mg tablet 03/31 completed Not Available Not Available Not Available benzonatate 100 mg capsule 03/31 completed Not Available Not Available Not Available Advair Diskus 250 mcg-50 mcg/dose powder for inhalation INHALE 1 DOSE BY MOUTH TWICE DAILY 03/31 completed Not Available Not Available Not Available clobetasol 0.05 % topical ointment 03/31 completed Not Available Not Available Not Available methylpredn isolone 4 mg tablets in a dose pack 03/31 completed Not Available Not Available Not Available albuterol sulfate HFA 90 mcg/actuati on aerosol inhaler INHALE 2 PUFFS BY MOUTH EVERY 4 HOURS (FOR RESCUE ONLY) active Not Available Not Available No t Available amoxicillin 875 mg-pothayu m clavulanate 125 mg tablet 07/21 completed Not Available Not Available Not Available Symbicort 160 mcg-4.5 mcg/actuati on HFA aerosol inhaler 03/31 completed Not Available Not Available Not Available diclofenac 1 % topical gel APPLY 2 GRAMS TOPICALLY THREE TIMES DAILY TO AFFECTED AREA 03/31 completed Not Available Not Available Not Available Pennsaid 20 mg/gram/act uation (2 %) topical soln in metered-dos e pump APPLY 2 PUMPS (40 MG) TO THE AFFECTED KNEE(S) BY TOPICAL ROUTE 2 TIMES PER DAY 03/31 completed Not Available Not Available Not Available Vitals Date Recorded Heart rate Respiratory rate Oxygen saturation Oxygen saturation in Arterial blood by Pulse oximetry Systolic blood pressure Diastolic blood pressure Provider Name and Address Organization Details Last Updated DateTime 4 97 /min 14 /min 98 % 98 % 114 mm[Hg] 74 mm[Hg] [facility] [place] [employer] 4 14:12:45 Social History Question Answer Notes LastModified by Organizat ion Details LastModified Time Tobacco Smoking Status Former Smoker 1PPD Not Available [employer] 06/21/2022 17:42:47 Do You Have An Advance Directive? No [id number] Information not available 06/21/2022 What Is Your Level Of Alcohol Consumption? None [id number] Information not available 06/21/2022 What Is Your Level Of Caffeine Consumption? Moderate [id number].[id number] Information not available 06/21/2022 In The 14 Days Before Symptom Onset, Have You Had Close Contact With A Laboratory-confirm ed COVID-19 While That Case Was Ill? No [id number].[id number] 2120 Information not available 06/21/2022 In The 14 Days Before Symptom Onset, Have You Had Close Contact With A Person Who Is Under Investigation For COVID-19 While That Person Was Ill? No [id number] Information not available 06/21/2022 What Type Of Diet Are You Following? REGULAR [id number].329579 9552 Information not available 06/21/2022 What Is The Highest Grade Or Level Of School You Have Completed Or The Highest Degree You Have Received? 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 06/30/2021 [id number] Information not available 06/21/2022 What Is Your Relationship Status? [id number].[id number] 1302 Information not available 06/21/2022 At What Age Did You Start Smoking Tobacco? 16 [id number].333183 1402 Information not available 06/21/2022 Are You Passively Exposed To Smoke? Yes [id number].014001 5446 Information not available 06/21/2022 Do You Use Sunscreen Routinely? Yes [id number].037701 1932 Information not available 06/21/2022 Has Tobacco Cessation Counseling Been Provided? No MIGRATION.544283 2032 Information not available 06/21/2022 Have You Recently Traveled Abroad? No MIGRATION.086226 9232 Information not available 06/21/2022 Do You Or Have You Ever Used Any Other Forms Of Tobacco Or Nicotine? No MIGRATION.467635 0322 Information not available 06/21/2022 Sex: Unknown Functional Status Question Answer Note LastModified by Organizat ion Details LastModified Time What is your exercise level? Occasional [id number] Information not available 06/21/2022 Mental Status None recorded. Family History Relationship Description Onset Age of this Age Resolved Age Notes LastModified by Organization Details LastModified Time Mother Myocardial infarction 59 massiv e [id number] Not available 06/21/2022 17:43:00 Father Kidney disease 92 [id number] Not available 06/21/2022 17:43:00 Medical History Condition Response PAIN Y ASTHMA Y Gynecological HistoryNo gynecological history recorded. Obstetrics History GPAL:G 0 P 0 0 0 0 Past Encounters Encounter ID Performer Location Encounter Start Date Encounter Closed Date Diagnosis/Indication Diagnosis SNOMED-CT Code Diagnosis ICD10 Code Diagnosis Note [id number] Maycol Mcguire DPM [facility] [place] Potts [address] [place] [address] 03/31/2024 14:00:55 04/01/2024 09:22:26 Open wound of right ankle 0514054590 7436150 S91.001A Betadine wet-to-dry dressings- dailyofflo adingclean wound daily with Hibiclense levation when at restfollow -up wound care 1 week Peripheral venous insufficiency 34637888 I87.2 educated on mild compressio ndaily compressio n with Anthony control swellingpr event wound from getting bigger Orthopedic hardware in situ 275317078 Z97.8 Health Concerns Section Related Observation LastModified by Organization Detai ls LastModified Time None Recorded Concern Status LastModified by Organization Details LastModified Time None Recorded Payers Encounter Date Sequence Insurance Name Policy Number Policy Russ Covered Member ID Russ Member ID Guarantor Name 03/31/2024 1 [facility] FINANCIAL REP [facility] - OPEN ACCESS III (PPO) [id number] Shantel Del Real [id number] Shantel Del Real Notes Date Note Type Note Provider Name and Address Organization Details Recorded Time 03/31/2024 text/html . Patient is a 58-year-old female she presents the office with right ankle pain. Patient states that she has painful hardware in her right ankle after sustaining a ankle fracture several years ago. Patient states that she recently developed a wound to the lateral lower leg overlying the plate. Patient states that about 2 weeks ago she had a lot of itching to the area which she severely scratched the area and states that she subsequently opened the wound secondary to the scratching. Patient has been treating the area herself. Patient has been to her primary and was referred here. Patient denies any fever, chills, nausea or vomiting. Patient states there has been no surrounding redness or purulent drainage. Patient states she has pain to the area. Patient denies any other pedal complaints. Maycol Mcguire DPM [address] [facility] [facility] [address], [place], [address], [facility] [employer] 04/01/2024 09:22:25 OBGyn Episode No OBEpisode recorded.
--- OUTSIDE RECORDS SUMMARY | 2024-05-04 17:06 | XMS_ITS | Encounter Summary ---
Author Organization [facility] Address [address] [place] [address]. [place] [address] [place] [address] Care Team Providers Care Dynamometer Tester Engine Name Role Phone Carmina Lopez MD Primary Care Provider + Encounter Details Date Type Department Care Team (Late st Contact Info) Description 12/04/2023 7:10 AM CDT Laboratory Only [facility] Family Medicine [facility] [address] [id number] Carmina Lopez MD [address] [id number] Social History Tobacco Use Types Packs/Day Years Used Date Smoking Tobacco: Former Cigarettes 0.5 44 S tarted: 1981 Smokeless Tobacco: Never Comments:Stopped 2012. 0.5 p pd for 40 years Alcohol [...] Procedure Name Priority Date/Time Associated Diagnosis Comments COLLECTION VENOUS BLOOD VENIPUNCTURE Routine 12/04/2023 7:17 AM CDT Routine general medical examination at a health care facility HEMOGLOBIN, GLYCOSYLATED Routine 12/04/2023 7:17 AM CDT Routine general medical examination at a [facility] care facility BASIC METABOLIC PANEL Routine 12/04/2023 7:17 AM CDT Routine general medical examination at a [facility] care facility LIPID PANEL Routine 12/04/2023 7:17 AM CDT Routine general medical examination at a [facility] facility HEPATITIS C ANTIBODY Routine 12/04/2023 7:17 AM CDT Routine general medical examination at a [facility] facility documented in this encounter Results * (ABNORMAL) HEMOGLOBIN, GLYCOSYLATED (12/04/2023 7:17 AM CDT) HGB A1C 5.9 4.5 - 6.2 % 12/04/2023 2:39 PM CDT [facility] ESTIMATED AVG GLUCOSE 123(H) 74 - 106 MG/DL 12/04/2023 2:39 PM CDT [facility] 12/04/2023 7:17 AM CDT us Carmina Lopez MD LABORATORY Final Re sult [facility] [address] [place] [address], * (ABNORMAL) LIPID PANEL (12/04/2023 7:17 AM CDT) CHOLESTEROL 187 <200 MG/DL 12/04/2023 2:35 PM CDT [facility] TRIGLYCERIDES 74 <150 MG/DL 12/04/2023 2:35 PM CDT [facility] HDL 58 >40 MG/DL 12/04/2023 2:35 PM CDT [facility] LDL-C 114(H) <100 MG/DL 12/04/2023 2:35 PM CDT [facility] VLDL CALCULATION 15 5 - 28 MG/DL 12/04/2023 2:35 PM CDT [facility] CHOL/HDL RATIO 3.2 0.0 - 4.0 12/04/2023 2:35 PM CDT [facility] LDL/HDL 2.0 0.41 - 2.13 12/04/2023 2:35 PM CDT [facility] NON HDL CHOLESTEROL 129 <140 MG/DL 12/04/2023 2:35 PM CDT [facility] 12/04/2023 7:17 AM CDT us Carmina Lopez MD LABORATORY Final Re sult [facility] [address] [place] [address], * (ABNORMAL) BASIC METABOLIC PANEL (12/04/2023 7:17 AM CDT) SODIUM S/P/B 140 136 - 145 MMOL/L 12/04/2023 2:35 PM CDT [facility] POTASSIUM S/P/B 4.3 3.5 - 5.1 MMOL/L 12/04/2023 2:35 PM CDT [facility] CHLORIDE S/P/B 104 98 - 107 MMOL/L 12/04/2023 2:35 PM CDT [facility] CO2 30.2 21 - 32 MMOL/L 12/04/2023 2:35 PM CDT [facility] GLUCOSE 104(H) 70 - 99 MG/DL 12/04/2023 2:35 PM CDT [facility] BUN 17 7 - 18 MG/DL 12/04/2023 2:35 PM CDT [facility] CREATININE S/P/B 0.99 0.55 - 1.02 MG/DL 12/04/2023 2:35 PM CDT [facility] CALCIUM S/P/B 8.6 8.4 - 10.5 MG/DL 12/04/2023 2:35 PM CDT [facility] ANION GAP 5.8 5 - 15 MMOL/L 12/04/2023 2:35 PM CDT [facility] Comment:REFERENCE RANGE NOT ESTABLISHED OSMOLALITY (CALC) 292 MOSM/KG 024 2:35 PM CDT [facility] Comment:REFERENCE RANGE NOT ESTABLISHED GFR ESTIMATE 67(L) >90 ML/MIN/1. 73 M2 12/04/2023 2:35 PM CDT [facility] GFR NOTES GFR REFERENCE S: 12/04/2023 2:35 PM CDT [facility] Comment: THE ESTIMATED GFR IS CALCULATED USING THE 2020 CKD-EPI EQUATION. THE FOLLOWING CATEGORIES FOR GRADING RENAL FUNCTION ARE RECOMMENDED BY THE INTERNATIONAL SOCIETY OF NEPHROLOGY (KDIGO 2012 CLINICAL PRACTICE GUIDELINE). G1,NORMAL OR HIGH: >89 ml/min/1.73 m2 G2,MILDLY DECREASED: 60-89 ml/min/1.73 m2 G3A,MILDLY TO MODERATELY DECREASED: 45-59 ml/min/1.73 m2 G3B,MODERATELY TO SEVERELY DECREASED: 30-44 ml/min/1.73 m2 G4,SEVERELY DECREASED: 15-29 ml/min/1.73 m2 G5,KIDNEY FAILURE: <15 ml/min/1.73 m2 12/04/2023 7:17 AM CDT us Carmina Lopez MD LABORATORY Final Re sult -[facility] [address] [place] [address], * HEPATITIS C ANTIBODY (12/04/2023 7:17 AM CDT) HEPATITIS C AB NON-REACTI VE NON-REACT JULIENNE 12/04/2023 10:20 PM CDT [facility] Comment: ANTIBODIES TO HCV NOT DETECTED. DOES NOT EXCLUDE THE POSSIBILITY OF EXPOSURE TO HCV. 12/04/2023 7:17 AM CDT us Carmina Lopez MD LABORATORY Final Re sult [facility] [address] [place] [address], [id number] documented in this encounter Visit Diagnoses Diagnosis Routine general medical examination at a health care facility- Primary documented in this encounter Care Teams Dynamometer Tester Engine Relationship Specialty Start Date End Date Carmina Lopez MD [address] [place] [address] PCP - General FAMILY PRACTICE 11/22/23 documented as of this encounter
--- OUTSIDE RECORDS SUMMARY | 2024-05-04 17:06 | XMS_ITS | Clinical Summary ---
Author Organization [facility] Address [facility] [facility] [place] [address] [place] [address] Care Team Providers Care Retail Sales Teammate Name Role Phone Carmina Lopez MD Primary Care Provider + Allergies No known active allergies Medications albuterol sulfate HFA 108 (90 Base) MCG/ACT inhalerIndicatio ns:Ankle wound, right, initial encounter Inhale 2 puffs into the lungs every 6 (six) hours as needed for Wheezing. 18 g 3 03/17/2024 Active Active Problems Problem Noted Date Diagnosed Date Prediabetes 12/04/2023 Bite by animal 10/07/2021 Overview (11/22/2023): Last Assessment & Plan: -Patient bit by her cat, completed augmentin 10 days, started on doxycycline by her PCP without improvement -Wound with eschar and necrotic-appearing tissue; surrounding cellulitis -> now s/p debridement by [facility] -I d/w [facility] - they have already requested f/u appointment and office will call patient this week -Plan to discharge with 7 days Bactrim + Clinda -Dressing changes with Santyl, ABD, Kerlix, ADRIANA wrap Class 3 severe obesity in adult (CMS/HCC HHS/HCC ) 10/07/2021 Overview (11/22/2023): Last Assessment & Plan: -Charge Loader -encourage diet/exercise Encounters Date Type Department Care Team Description 03/17/2024 10:30 AM [employer] Office Visit [facility] Family Medicine - [place] [address] [place] [address] [address] [place] [address] Carmina Lopez MD Ankle (Right ankle - wound issues. She itched it so much, but broke it open. Onset- 2 days ago. Draining some. ) 03/17/2024 Travel from Last 3 Months Immunizations Name Administration Dates Next Due Influenza Adult (Generic) 05/21/2021,05/11/2020 Dr. [employer] ([employer]) COVID-19 AD26 VACCINE 0.5 ML IM SUSP 06/28/2020 [facility] COVID-19 ([facility] [facility] [employer] DENAE RINA), MRNA, LNP-S, PF, 50 MCG/ 0.25 ML DOSE 04/30/2021 Family History Medical History Relation Comments No Known Problems Brother 1 No Known Problems Brother 2 No Known Problems Brother 3 No Known Problems Daughter Kidney Disease Father Kidney failure Father Arthritis Mother Asthma Mother Diabetes Mother Heart Disease Mother Hypertension Mother Katerina No Known Problems Sister No Known Problems Son Relation Status Comments Brother 1 Alive Brother 2 Alive Brother 3 Alive Daughter Alive Father Mother Sister Alive Son Alive Social History Tobacco Use Types Packs/Day Years [...] Comments Blood Pressure 135/84 03/17/2024 10:40 AM [employer] Pulse 89 03/17/2024 10:40 AM [employer] Temperature 36.4 ??C (97.5 ??F) 03/17/2024 10:[address] Respiratory Rate 20 03/17/2024 10:40 AM [employer] Oxygen Saturation 98% 03/17/2024 10:40 AM [employer] Inhaled Oxygen Concentration - - Weight 124 kg (273 lb 6.4 oz) 03/17/2024 10:40 A M [employer] Height 170.2 cm (5' 7 ) 03/17/2024 10:40 AM [employer] Body Mass Index 42.82 03/17/2024 10:40 AM [employer] Plan of Treatment Health Maintenance Due Date Last Done Comments Colorectal Cancer Screening Colonoscopy (10 Years) 1967 DTaP, Tdap and Td Vaccines ( 1 - Tdap) 09/10/1986 Hepatitis B Vaccines (1 of 3 - 19+ 3-dose series) 09/10/1986 Mammogram Screening 2007 Cervical Cancer Screening Pa p Smear (Age 30 to 64) Every 3 Years 01/17/2014 01/17/2011 Cervical Cancer Screening Pa p with HPV Testing (Age 30 to 64) Every 5 Years 01/18/2016 01/17/2011 Cervical Cancer Screening wi th HPV 01/18/2016 Lung Cancer Screening 09/10/2017 Zoster Vaccines (1 of 2) 09/10/2017 COVID-19 Vaccine (2023-2 5 season) 2023 04/30/2021, 06/28/2020 Influenza Adult (#1) 2024 05/21/2021, 05/11/2020 Annual Physical 11/21/2024 11/22/2023 Hepatitis C Completed 12/04/2023 Meningococcal Vaccine Aged Out No kit consuelo eligible based on patient's age to complete this topic Pneumococcal Vaccine: Pediatrics (0 to 5 Years) and At-Risk Patients (6 to 64 Years) Aged Out No longer eligible b ased on patient's age to complete this topic RSV Immunizations Under 20 Months Aged Out No longer eligible b ased on patient's age to complete this topic Procedures Procedure Name Priority Date/Time Associated Diagnosis Comments HEPATITIS C ANTIBODY Routine 12/04/2023 7:17 AM CDT Routine general medical examination at a health care facility from Last 3 Months or Most Recently Relevant to Health Maintenance Results * HEPATITIS C ANTIBODY (12/04/2023 7:17 AM CDT) HEPATITIS C AB NON-REACTI VE NON-REACT JULIENNE 12/04/2023 10:20 PM CDT [facility] Comment: ANTIBODIES TO HCV NOT DETECTED. DOES NOT EXCLUDE THE POSSIBILITY OF EXPOSURE TO HCV. 12/04/2023 7:17 AM CDT us Carmina Lopez MD LABORATORY Final Re sult [facility] [address] [place] [address], [id number] from Last 3 Months or Most Recently Relevant to Health Maintenance Insurance [employer] OPEN ACCESS [facility] Care Teams Retail Sales Teammate Relationship Specialty Start Date End Date Carmina Lopez MD [address] [facility] [address] [place] [id number] PCP - General FAMILY PRACTICE 11/22/23
--- OUTSIDE RECORDS SUMMARY | 2024-05-04 17:06 | XMS_ITS | Patient Health Summary ---
Author Organization [facility] Address [address] [place] [address] Care Team Providers Care Hatchery Man Name Role Phone Unavailable Primary Care Provider Unavailabl e Note from [facility],non-owned Affiliates and Associated Physician Practices is amultiple site organization consisting of ambulatory clinics and hospital sitesin [place], [place], [place] and [place]. This disclosure is being madepursuant to the Care Everywhere program and may not contain all information available regarding this patient. Last updated 18.[facility] [employer] Allergies No known active allergies Social History [...] Mass Index 38.37 01/17/2011 12:55 PM CDT Procedures * US PELVIS W TRANSVAG NON OB(Performed 01/21/2011) Performed for Kidney stone, Unspecified symptom associated with female genital organs * US RETROPERITONEAL COMPLETE(Performed 01/21/2011) Performed for Kidney stone * URINALYSIS REFLEX TO MICROSCOPIC NO CULTURE(Performed 01/17/2011) * CULTURE URINE(Performed 01/17/2011) * CYTOLOGY CERVICAL/VAG PAP SCREEN THIN PREP(Performed 01/17/2011) * CHLAMYDIA + GC AMPLIFIED PROBE(Performed 01/17/2011) * PHOSPHORUS BLOOD(Performed 01/17/2011) * CALCIUM BLOOD(Performed 01/17/2011) * PTH INTACT+CALCIUM(Performed 01/17/2011) * T4 FREE(Performed 01/17/2011) * TSH(Performed 01/17/2011) Results * US PELVIS WITH TRANSVAG NON [...] ovarian cyst. Ana Chawla MD US ORDERABLES * US KIDNEYS/BLADDER (RETROPERITONEAL COMPLETE) (01/21/2011 11:00 [...] evaluation. Ana Chawla MD US ORDERABLES * (ABNORMAL) URINALYSIS ROUTINE AUTO (01/17/2011 3:45 PM CDT) Source Clean Catch [facility] Color UA Yellow [facility] Character UA Clear [facility] Glucose UA NEGATIVE NEGATIVE mg/dl [facility] Bilirubin UA NEGATIVE NEGATIVE [facility] Ketone UA 15(H) NEGATIVE mg/dl [facility] Specific O'Brien UA 1.025 1.003 - 1.030 [facility] Blood UA NEGATIVE NEGATIVE [facility] pH UA 6.0 5.0 - 9.0 [facility] Protein UA NEGATIVE NEGATIVE-TR ADRIANA mg/dl [facility] Urobilinogen UA 0.2 0.2 - 1.0 Liang Units/dl [facility] Nitrite UA NEGATIVE NEGATIVE [facility] Leukocyte UA NEGATIVE NEGATIVE [facility] URINE SPECIMEN OBTAINED BY CLEAN CATCH PROCEDURE / Unknown 01/17/2011 3:45 PM CDT 01/17/2011 5:19 PM CDT Ana Chawla MD LAB - URINALYSIS ORD ERABLES Performing Organization Address City/[facility]/ZIP Co de Phone Number [facility] [address] [place] [address] * CULTURE URINE (01/17/2011 3:45 PM CDT) Result [facility] Comment: Final CULTURE <10,000 CFU/mL urogenital/skin tita Urine specimen (specimen) URINE SPECIMEN OBTAINED BY CLEAN CATCH PROCEDURE / Unknown 01/17/2011 3:45 PM CDT 01/17/2011 5:19 PM CDT Narrative Resulting Agency Comment Performed By [facility];[address] [place] [address];[place] [address] Ana Chawla MD LAB - MICROBIOLOGY O RDERABLES [facility] [address] [place] [address] * CYTOLOGY CERVICAL/VAG SCREEN THIN PREP (01/17/2011 3:40 PM CDT) Comment Thin Prep [facility] Pap Smear Report See Scanned Report [facility] ENTIRE ENDOCERVIX / Unknown 01/17/2011 3:40 PM CDT 01/17/2011 4:45 PM CDT Narrative Resulting Agency Comment Performed By [facility]) ? [address] ? [place], [place] ??[address] Ana Chawla MD LAB - PATHOLOGY/CYTO LOGY ORDERABLES Performing Organization Address [facility] de Phone Number [facility] [address] [place] [address] * CHLAMYDIA + GC AMPLIFIED PROBE (01/17/2011 3:40 PM CDT) Chlamydia trachomatis Amplified Probe NEGATIVE [facility] GC Amplified Probe NEGATIVE [facility] Comment Amplified Probe [facility] Comment: Comments and Normal Ranges for Component ??Amplified Probe Comment Results based on detection/no detection of ribosomal RNA by amplified method. ENTIRE ENDOCERVIX / Unknown 01/17/2011 3:40 PM CDT 01/17/2011 4:46 PM CDT Narrative Resulting Agency Comment Performed By [facility] ? [address] ? [place] [address] Ana Chawla MD LAB - MICROBIOLOGY O RDERABLES Performing Organization Address [facility] de Phone Number [facility] [address] [place] [address] * PTH INTACT PANEL (01/17/2011 3:15 PM CDT) PTH Intact 32.6 14 - 72 pg/ml [facility] Calcium PTH Intact 9.1 8.4 - 10.2 mg/dl [facility] BLOOD SPECIMEN / Unknown 01/17/2011 3:15 PM CDT 01/17/2011 4:56 PM CDT Ana Chawla MD LAB - CHEMISTRY SATISH COBB Performing Organization Address [facility] de Phone Number [facility] [address] [place] [address] * PHOSPHORUS BLOOD (01/17/2011 3:15 PM CDT) Phosphorus 2.9 2.5 - 4.9 mg/dl [facility] BLOOD SPECIMEN / Unknown 01/17/2011 3:15 PM CDT 01/17/2011 4:56 PM CDT Ana Chawla MD LAB - CHEMISTRY SATISH COBB Performing Organization Address City/[facility] Co de Phone Number [facility] [address] [place] [address] * CALCIUM BLOOD (01/17/2011 3:15 PM CDT) Pathologist [facility] Calcium 9.0 8.5 - 10.1 mg/dl [facility] BLOOD SPECIMEN / Unknown 01/17/2011 3:15 PM CDT 01/17/2011 4:56 PM CDT Ana Chawla MD LAB - CHEMISTRY SATISH COBB Performing Organization Address City/[facility] Co de Phone Number [facility] [address] [place] [address] * TSH (01/17/2011 3:15 PM CDT) Pathologist [facility] TSH 1.63 0.358 - 3.74 uIU/ml [facility] BLOOD SPECIMEN / Unknown 01/17/2011 3:15 PM CDT 01/17/2011 4:56 PM CDT Ana Chawla MD LAB - CHEMISTRY SATISH COBB Performing Organization Address City/[facility] Co de Phone Number [facility] [address] [place] [address] * T4 FREE (01/17/2011 3:15 PM CDT) Pathologist [facility] T4 Free 1.11 0.65 - 1.34 ng/dl [facility] BLOOD SPECIMEN / Unknown 01/17/2011 3:15 PM CDT 01/17/2011 4:56 PM CDT Ana Chawla MD LAB - CHEMISTRY SATISH COBB [facility] [address] [place] [address]
--- OUTSIDE RECORDS SUMMARY | 2024-05-04 17:06 | XMS_ITS | Data Portability ---
Author Organization [place] [employer] [facility], Main Office Address [address] [place] [address] Assessment Encounter Date Assessment Date Assessment LastModified by Organization Details LastModified Time 03/31/2024 03/31/2024 This note is dictated and transcribed by [employer]. Gear Grinder variances may occur. Despite proofreading, typographical errors may occur. Occasional wrong-word or 'wxozv-l-qrer' substitutions may have occurred due to the inherent limitations of voice recording. Read the chart carefully and recognize, using context, where substitutions have occurred. Not available 04/01/2024 09:18:12 04/09/2024 04/09/2024 This note is dictated and transcribed by [employer]. Gear Grinder variances may occur. Despite proofreading, typographical errors may occur. Occasional wrong-word or 'jrtxh-n-itcd' substitutions may have occurred due to the inherent limitations of voice recording. Read the chart carefully and recognize, using context, where substitutions have occurred. Not available 04/09/2024 12:53:44 Plan of Treatment Reminders Order Date Submit Date Provider Last Modified By Organization Details Last Modified Time Details Appointments None recorded. Lab None recorded. Referral None recorded. Procedures None recorded. Surgeries None recorded. Imaging XR, ankle, 3 or more view 2023 024 roman 7 [facility] Garrett Potts, [facility], [place], [address], 09:22:08 Medication Orders tramadol 50 mg tablet 2023 024 [facility], [address], [place], [address], 4 12:55:26 Patient TargetsNo targets recorded. Patient InstructionsNo instructions recorded. Reason for Referral None Reported. Results Created Date Observation Date Name Description Value Unit Range Abnormal Flag Note LastModifiedBy Organization Detail LastModifiedTime 07/22/19 22 XR, ankle No observ ation record ed. [id number] [facility] [place] [address], [place], [address], 06/21/2022 17:44:29 04/01/20 24 XR, ankle , 3 or more view No observ ation record ed. [email or web address] [facility] [place] [address], [place], [address], 04/01/2024 09:22:08 Result Notes None recorded. Problems Name Problem SNOMED Code Status Onset Date Resolution Date Notes Provider Name and Address Organization Details Recorded Time Asthma 225958264 Active Not Available [facility] 3 17:43:27 Localized, secondary osteoarthr itis of the ankle and/or foot 377785342 Active 2021 Not Available [facility] 3 17:43:27 Ankle pain 439771365 Active 2021 Not Available [facility] 3 17:43:27 Ankle pain 206916061 Active Not Available [facility] 3 17:43:27 Orthopedic hardware in situ 312750477 Active 2021 Not Available [facility] 3 17:43:27 Peripheral venous insufficie ncy 54878261 Active 2023 Maycol Mcguire DPM [address], [place], [address] , [employer] 4 09:19:08 Open wound of right ankle 5985377994697 9103 Active 2023 Maycol Mcguire DPM [address], [place], [address] , [employer] 09:20:26 Problem Notes None recorded. Procedures Surgical History Date Name Laterality Status Provider Name and Address Organization Details Recorded Time Wound Care-Podiatry completed Tanvi Romero RN [place] - [facility] 04/09/2024 12:50:43 9 Unlisted px femur/knee completed Not Available [facility] 06/21/2022 17:42:59 Imaging Results Imaging Date Name Status LastModified by Organiz ation Details LastModified Time 07/21/2021 XR, ankle completed [id number] [facility] [place] [address], [place], [address], 06/21/2022 17:44:29 04/01/2024 XR, ankle, 3 or more view completed [email or web address] [facility] [place] [address], [place], [address], 04/01/2024 09:22:08 Procedure Notes None recorded. Medical [...] Not Available No t Available amoxicillin 875 mg-potassiu m clavulanate 125 mg tablet 07/21 completed [...] Not Available Not Available Vitals Date Recorded Body height Provider Name an d Address Organization Details Last Updated DateTime 07/21/2021 170.18 cm Not Available [employer] 3 17:43:03 Date Recorded Heart rate Respiratory rate Oxygen saturation Oxygen saturation in Arterial blood by Pulse oximetry Systolic blood pressure Diastolic blood pressure Provider Name and Address Organization Details Last Updated DateTime 4 97 /min 14 /min 98 % 98 % 114 mm[Hg] 74 mm[Hg] Vero Perez [place] [facility] [place] [facility] 4 14:12:45 Date Recorded Heart rate Body temperature Oxygen saturation Oxygen saturation in Arterial blood by Pulse oximetry Systolic blood pressure Diastolic blood pressure Provider Name and Address Organization Details Last Updated DateTime 4 86 /min 97.4 [degF] 98 % 98 % 144 mm[Hg] 70 mm[Hg] Tanvi Romero RN [place] - [facility] 4 12:27:32 Social History Question Answer Notes LastModified by Organizat ion Details LastModified Time Tobacco Smoking Status Former Smoker 1PPD Not Available [employer] 06/21/2022 17:42:47 Do You Have An Advance Directive? No [id number] Information not available 06/21/2022 What Is Your Level Of Alcohol Consumption? None [id number].[id number] Information not available 06/21/2022 What Is Your Level Of Caffeine Consumption? Moderate MIGRATION.251077 7020 Information not available 06/21/2022 In The 14 Days Before Symptom Onset, Have You Had Close Contact With A Laboratory-confirm ed COVID-19 While That Case Was Ill? No [id number] Information not available 06/21/2022 In The 14 Days Before Symptom Onset, Have You Had Close Contact With A Person Who Is Under Investigation For COVID-19 While That Person Was Ill? No [id number].230363 7027 Information not available 06/21/2022 What Type Of Diet Are You Following? REGULAR MIGRATION.632309 4839 Information not available 06/21/2022 What Is The Highest Grade Or Level Of School You Have Completed Or The Highest Degree You Have Received? 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 06/30/2021 [id number].[id number] 7152 Information not available 06/21/2022 What Is Your Relationship Status? MIGRATION.256544 5827 Information not available 06/21/2022 At What Age Did You Start Smoking Tobacco? 16 MIGRATION.798915 2073 Information not available 06/21/2022 Are You Passively Exposed To Smoke? Yes MIGRATION.921266 3090 Information not available 06/21/2022 Do You Use Sunscreen Routinely? Yes MIGRATION.066893 8304 Information not available 06/21/2022 Has Tobacco Cessation Counseling Been Provided? No MIGRATION.899646 9096 Information not available 06/21/2022 Have You Recently Traveled Abroad? No MIGRATION.724641 8617 Information not available 06/21/2022 Do You Or Have You Ever Used Any Other Forms Of Tobacco Or Nicotine? No MIGRATION.805917 8426 Information not available 06/21/2022 Sex: Unknown Functional Status Question Answer Note LastModified by Organizat ion Details LastModified Time What is your exercise level? Occasional [id number] 26 Information not available 06/21/2022 Mental Status None recorded. Family History Relationship Description Onset Age of this Age Resolved Age Notes LastModified by Organization Details LastModified Time Mother Myocardial infarction 59 massiv e [id number] Not available 06/21/2022 17:43:00 Father Kidney disease 92 [id number] Not available 06/21/2022 17:43:00 Medical History Condition Response ASTHMA Y PAIN Y Gynecological HistoryNo gynecological history recorded. Obstetrics History GPAL:G 0 P 0 0 0 0 Past Encounters Encounter ID Performer Location Encounter Start Date Encounter Closed Date Diagnosis/Indication Diagnosis SNOMED-CT Code Diagnosis ICD10 Code Diagnosis Note [id number] [facility] [place] [address] [place] [address] 07/21/2021 00:00:00 07/21/2021 15:47:06 [id number] Maycol Mcguire DPM [facility] [place] [address] [place] [address] 03/31/2024 14:00:55 04/01/2024 09:22:26 Open wound of right ankle 2679140950 8411138 S91.001A Betadine wet-to-dry dressings- dailyofflo adingclean wound daily with Hibiclense levation when at restfollow -up wound care 1 week Peripheral venous insufficiency 54629534 I87.2 educated on mild compressio ndaily compressio n with Anthony control swellingpr event wound from getting bigger Orthopedic hardware in situ 683099152 Z97.8 [id number] Maycol Mcguire DPM [facility] [address] [place] [address] 04/09/2024 11:49:03 04/09/2024 13:07:55 Open wound of right ankle 3161653333 0285411 S91.001A Betadine wet-to-dry dressings- dailyofflo adingclean wound daily with Hibiclense levation when at restfollow -up wound care 1 week Peripheral venous insufficiency 12485930 I87.2 educated on mild compressio ndaily compressio n with Anthony control swellingpr event wound from getting bigger Orthopedic hardware in situ 715134808 Z97.8 Health Concerns Section Related Observation LastModified by Organization Detai ls LastModified Time None Recorded Concern Status LastModified by Organization Details LastModified Time None Recorded Advance Directives Directive N: Payers Encounter Date Sequence Insurance Name Policy Number Policy Russ Covered Member ID Russ Member ID Guarantor Name 03/31/2024 1 [facility] - OPEN ACCESS III (PPO) [id number] Shantel Valdezbless [id number] Shantel Valdezbless 04/09/2024 1 [facility] - OPEN ACCESS III (PPO) [id number] Shantelmesfin ValdezNasima [id number] Shantel Nasima Notes Date Note Type Note Provider Name [...] any other pedal complaints. Maycol Mcguire DPM [address] [facility] [facility] [address], [place], [address], [facility] [employer] [facility] 04/01/2024 09:22:25 04/09/2024 text/html . Patient is a 58-year-old female who returns the office for open wound to the right lateral ankle she has a stable healing wound with fibrotic tissue she denies any acute signs of infection she states she has pain to the wound. Patient denies any fever, chills, nausea or vomiting. Maycol Mcguire DPM [address] [facility] [address], [place], [address], [facility] [employer] [facility] 04/09/2024 13:02:24 OBGyn Episode No OBEpisode recorded.
--- OUTSIDE RECORDS SUMMARY | 2024-05-04 17:06 | XMS_ITS | Encounter Summary ---
Author Organization [facility] Address [facility] [place] [address] [place] [address] Care Team Providers Care Grey Iron Molder Name Role Phone Carmina Lopez MD Primary Care Provider + Reason for Visit * Reason Onset Date Comments Lab Results 12/07/2023 Encounter Details Date Type Department Care Team (Late st Contact Info) Description 12/07/2023 Telephone [facility] - [place] [address] [phone] Carmina Lopez MD [address] [id number] Lab Results Social History Tobacco Use Types Packs/Day Years Used Date Smoking Tobacco: Former Cigarettes 0.5 44 S tarted: 1980 Smokeless Tobacco: Never Comments:Stopped 2012. 0.5 p [...] on file documented as of this encounter Progress Notes * Jocelyn Taylor MA - 12/07/2023 11:49 AM CDT I spoke with the patient and she just wanted to know what to do to bring down her LDL and glucose. I advised to watch her diet and limit sugar, trans and saturated fats in diet. She voiced understanding * Ginette Lopez - 12/07/2023 11:22 AM CDT Shantel called in, she has some questions about her labs. Her # is [phone]. documented in this encounter Plan of Treatment Not on file documented as of this encounter Visit Diagnoses Not on filedocumented in this encounter Care Teams Grey Iron Molder Relationship Specialty Start Date End Date Carmina Lopez MD [address] [place] [address] PCP - General FAMILY PRACTICE 11/22/23 documented as of this encounter
--- OUTSIDE RECORDS SUMMARY | 2024-05-04 17:06 | XMS_ITS | Encounter Summary ---
Author Organization [facility] Address [address] [place] [address]. [place] [address] [place] [address] Care Team Providers Care Lumber Inspector Name Role Phone Carmina Walters MD Primary Care Provider + Reason for Referral * Imaging (Routine) - Closed Specialty Diagnoses / Procedures Referred By Contac t Referred To Contact RADIOLOGY Diagnoses Skin mass Procedures US SOFT TISS LOW BACK OR ABD WALL Carmina Walters MD [address] [place] [address] Phone: tel: fax: Referral ID Status Reason Start Date Expiration Date Visits Re quested Visits Authorized [id number] Closed 11/22/2023 11/21/2024 1 1 Reason for Visit * Imaging (Routine) - Closed Specialty Diagnoses / Procedures Referred By Contac t Referred To Contact RADIOLOGY Diagnoses Skin mass Procedures US SOFT TISS LOW BACK OR ABD WALL Carmina Walters MD [address] [place] [address] Phone: tel: fax: Referral ID Status Reason Start Date Expiration Date Visits Re quested Visits Authorized [id number] Closed 11/22/2023 11/21/2024 1 1 Encounter Details Date Type Department Care Team (Latest Contact Info) Description 12/05/2023 2:44 PM CDT - 12/05/2023 11:59 PM CDT Hospital Encounter [facility] [place] [address] Carmina Walters MD [address] [place] [address] Discharge Disposition: Home or Self Care (Routine Discharge) Social History Tobacco Use Types Packs/Day Years [...] on file documented as of this encounter Medications at Time of Discharge albuterol sulfate HFA 108 (90 Base) MCG/ACT inhaler INHALE 2 PUFFS BY MOUTH EVERY 4 HOURS (FOR RESCUE ONLY) 05/27/2023 03/17/2024 documented as of this encounter Plan of Treatment Not on file documented as of this encounter Procedures Procedure Name Priority Date/Time Associated Diagnosis Comments US SOFT TISS LOW BACK OR ABD WALL Routine 12/05/2023 3:28 PM CDT Skin mass documented in this encounter Results * US SOFT TISS LOW BACK OR ABD WALL (12/05/2023 3:28 PM CDT) Anatomical Region Laterality Modality Abdomen, Body Ultrasound 12/06/2023 7:36 AM CDT Impressions 12/06/2023 7:41 AM CDT IMPRESSION: No sonographically apparent abnormality of patient's reported region of palpable abnormality. Correlate with clinical exam. Palpable abnormality should be managed on a clinical basis including decision as to whether to biopsy or acquire additional imaging such as CT or MRI. Ordered By: CARMINA WALTERS Interpreted By: Raoul [place], 12/06/2023 7:36 AM Narrative 12/06/2023 7:41 AM CDT IMAGING STUDIES: US SOFT TISS LOW BACK OR ABD WALL ? DATE: ??12/05/2023 3:09 PM HISTORY: ??fatty tumor ? 58-year-old female. Palpable located near the center of the pubic area for one year. Uncomfortable to touch. Most notable when getting in and out of car. No change with cough or sneeze. COMPARISON: ??None. DISCUSSION: Targeted ultrasound performed of the patient's reported region of palpable abnormality corresponding to lower mid pelvis/pubic area. No sonographically apparent abnormality. Procedure Note Raoul Salazar MD - 12/06/2023 IMAGING STUDIES: US SOFT TISS LOW BACK OR ABD WALLDATE: 12/05/2023 3:09PM HISTORY: fatty tumor 58-year-old female. Palpable located near thecenter of the pubic area for one year. Uncomfortable to touch. Mostnotable when getting in and out of car. No change with cough or sneeze. COMPARISON: None. DISCUSSION: Targeted ultrasound performed of the patient's reported region of palpableabnormality corresponding to lower mid pelvis/pubic area. No sonographically apparent abnormality. IMPRESSION: No sonographically apparent abnormality of patient's reported region ofpalpable abnormality. Correlate with clinical exam. Palpable abnormalityshould be managed on a clinical basis including decision as to whether tobiopsy or acquire additional imaging such as CT or MRI. Ordered By: CARMINA WALTERS Interpreted By: Raoul Salazar, 12/06/2023 7:36 AM us Carmina Walters MD ULTRASOUND Final Re sult documented in this encounter Visit Diagnoses Diagnosis Skin mass Localized superficial swelling, mass, or lump documented in this encounter Care Teams Lumber Inspector Relationship Specialty Start Date End Date Carmina Walters MD [address] [facility] [address] [place] [address] PCP - General FAMILY PRACTICE 11/22/23 documented as of this encounter
--- OUTSIDE RECORDS SUMMARY | 2024-05-04 17:06 | XMS_ITS | Encounter Summary ---
Author Organization [facility] Address [address] [place] [address]. [place] [address] [place] [address] Care Team Providers Care Partner Manager Name Role Phone None, Provider Primary Care Provider Unavaila ble Reason for Visit * Reason Onset Date Comments Follow Up Call 11/20/2023 Encounter Details Date Type Department Care Team (Late st Contact Info) Description 11/20/2023 Telephone [facility] Family [facility] [address] [phone] Carmina Lopez MD [address] [facility] [address] [place] [id number] Follow Up Call Social History Tobacco Use Types Packs/Day Years Used Date Smoking Tobacco: Never Smokeless Tobacco: Never Alcohol Use Standard Drinks/Week Comments Never 0 (1 standard drink = 0.6 oz pur e alcohol) Comments No Sex and Gender Information Value Date Recorded Sex Assigned at Not on file Legal Sex Female 4:57 PM CDT Gender Identity Not on file Sexual Orientation Not on file documented as of this encounter Progress Notes * Jocelyn Taylor MA - 11/20/2023 2:19 PM CDT I called patient and she stated she will call us back to pre-chart she is at work. documented in this encounter Plan of Treatment Not on file documented as of this encounter Visit Diagnoses Not on filedocumented in this encounter Care Teams Partner Manager Relationship Specialty Start Date End Date None, Provider, PCP - General 09/29/21 11/21/23 documented as of this encounter
--- OUTSIDE RECORDS SUMMARY | 2024-05-04 17:06 | XMS_ITS | Clinical Summary ---
Author Organization [facility] Address [address] [place] [address] Care Team Providers Care Equipment Service Lead Name Role Phone Unavailable Primary Care Provider Unavailabl e Source Comments [facility] Affiliates and Associated Physician Practices is amultiple site organization consisting of ambulatory clinics and hospital sitesin [place], [place], [place] and [place]. This disclosure is being madepursuant to the Care Everywhere program and may not contain all information available regarding this patient. Last updated 18.[facility] Allergies No known active allergies Family History Medical History Relation Name Comments Hypertension Father Heart Failure Mother Hypertension Mother Thyroid Disease Sister Relation Name Status Comments Father Mother Sister Social History Tobacco Use Types Packs/Day Years [...] 01/17/2011 12:55 PM CDT Plan of Treatment Health Maintenance Due Date Last Done Comments COLOGUARD (AGES 45-75) - COL ON CA SCREENING 1967 COLON MONITORING 1967 COLONOSCOPY - COLON CA SCREENING 1967 CT COLONOGRAPHY - COLON CA SCREENING 1967 Colorectal Cancer Screening 1967 FIT - COLON CA SCREENING 1967 FLEX SIG - COLON CA SCREENING 1967 LIPID TESTING 1967 MAMMOGRAM 1967 HIV SCREENING 09/10/1982 HEPATITIS C SCREENING 09/06/1985 DTAP/TDAP/TD VACCINES (1 - Tdap) 09/10/1986 HEPATITIS B VACCINE (1 of 3 - 19+ 3-dose series) 09/10/1986 PAP SMEAR 01/17/2014 01/17/2011 PNEUMOCOCCAL VACCINE 50+ (1 of 1 - PCV) 09/10/2017 ZOSTER VACCINE (1 of 2) 09/10/2017 COVID-19 VACCINE (3 - 2023-2 5 season) 2023 04/30/2021, 06/28/2020 INFLUENZA VACCINE (#1) 2023 2, 05/11/2020 DEPRESSION SCREENING 04/23/2024 HIB VACCINE Aged Out No longer eligi ble based on patient's age to complete this topic HPV VACCINE Aged Out No longer eligi ble based on patient's age to complete this topic MENINGOCOCCAL (Group B) VACCINE Aged Out No longer eligible b ased on patient's age to complete this topic MENINGOCOCCAL VACCINE Aged Out No kit consuelo eligible based on patient's age to complete this topic PNEUMOCOCCAL VACCINE Aged Out No long er eligible based on patient's age to complete this topic Procedures Procedure Name Priority Date/Time Associated Diagnosis Comments CYTOLOGY CERVICAL/VAG PAP SCREEN THIN PREP Today 01/17/2011 3:40 PM CDT from Last 3 Months or Most Recently Relevant to Health Maintenance Results * CYTOLOGY CERVICAL/VAG SCREEN THIN PREP (01/17/2011 3:40 PM CDT) Comment Thin Prep [facility] Pap Smear Report See Scanned Report [facility] ENTIRE ENDOCERVIX / Unknown 01/17/2011 3:40 PM CDT 01/17/2011 4:45 PM CDT Narrative Resulting Agency Comment Performed By [facility]) ? [address] ? [place], [place] ??[address] Ana Chawla MD LAB - PATHOLOGY/CYTO LOGY ORDERABLES [facility] [address] [place] [address] from Last 3 Months or Most Recently Relevant to Health Maintenance
--- OUTSIDE RECORDS SUMMARY | 2024-05-04 17:06 | XMS_ITS | Encounter Summary ---
Author Organization [facility] Address [facility] [facility]. [place], [place] [id number] [place] [id number] Care Team Providers Care Training Associate Name Role Phone Carmina Lopez MD Primary Care Provider + Encounter Details Date Type Department Care Team (Latest Contact Info) Description 11/22/2023 Travel Social History Tobacco Use Types Packs/Day [...] on filedocumented in this encounter Care Teams Training Associate Relationship Specialty Start Date End Date Carmina Lopez MD [address] [place] [id number] PCP - General FAMILY PRACTICE 11/22/23 documented as of this encounter
--- OUTSIDE RECORDS SUMMARY | 2024-05-04 17:06 | XMS_ITS | Encounter Summary ---
Author Organization [facility] Address [address] [place] [address]. [place] [address] [place] [address] Care Team Providers Care Rod Mill Tender Name Role Phone Carmina Walters MD Primary Care Provider + Reason for Referral * Imaging (Routine) - Closed Specialty Diagnoses / Procedures Referred By Contac t Referred To Contact RADIOLOGY Diagnoses Skin mass Procedures US SOFT TISS LOW BACK OR ABD WALL Carmina Walters MD [address] [place] [id number] Phone: tel: fax: Referral ID Status Reason Start Date Expiration Date Visits Re quested Visits Authorized [id number] Closed 11/22/2023 11/21/2024 1 1 * Imaging (Routine) - New Request Specialty Diagnoses / Procedures Referred By Contac t Referred To Contact RADIOLOGY Diagnoses Former smoker Procedures CT LUNG SCREENING Carmina Walters MD [address] [place] [id number] Phone: tel: fax: Referral ID Status Reason Start Date Expiration Date V isits Requested Visits Authorized [id number] New Request 11/22/2023 12/22/2024 1 1 * Imaging (Routine) - New Request Specialty Diagnoses / Procedures Referred By Adebayo alanis Referred To Contact RADIOLOGY Diagnoses Encounter for mammogram to establish baseline mammogram Procedures MG SCREENING W SHAZIA SHOAIB GLENNYI Carmina Walters MD [address] [place] [phone] Phone: tel: fax: Referral ID Status Reason Start Date Expiration Date V isits Requested Visits Authorized [id number] New Request 11/22/2023 01/21/2025 1 1 * Consultation/Treatment (Routine) - Pending Review Specialty Diagnoses / Procedures Referred By Adebayo alanis Referred To Contact GENERAL SURGERY Diagnoses Skin mass Procedures OFFICE/OUTPATIENT NEW LOW MDM 30-44 MINUTES OFFICE/OUTPT VISIT,NEW,LEVL IV OFFICE/OUTPT VISIT,NEW,LEVL V OFFICE/OUTPT VISIT,EST,LEVL III OFFICE/OUTPT VISIT,EST,LEVL IV OFFICE/OUTPT VISIT,EST,LEVL V Carmina Walters MD [address] [place] [phone] Phone: tel: fax: [facility] [address] [place] [address] Phone: tel: fax: Referral ID Status Reason Start Date Expiration Date V isits Requested Visits Authorized [id number] Pending Review 11/22/2023 11/21/2024 99 99 Scheduling Instructions Pt requests BJC. Mons pubis mass- obtaining usn prior to general surgery consult Reason for Visit * Reason Comments New Patient Here to get establis hed. Lump Having a lump/bump i n her pubic area. Onset- 1 year. Feels like a bead. Somewhat sore. Encounter Details Date Type Department Care Team (Late st Contact Info) Description 11/22/2023 10:20 AM CDT Office Visit [facility] [place] [address] [place] [id number] Carmina Walters MD [address] [place] [address] New Patient (Here to get established. ); Lump (Having a lump/bump in her pubic area. Onset- 1 year. Feels like a bead. Somewhat sore. ) Social History Tobacco Use Types Packs/Day Years Used Date Smoking Tobacco: Former Cigarettes 0.5 44 S tarted: 1980 Smokeless Tobacco: Never Tobacco Cessation:Counseling Given: No [...] Sign Reading Time Taken Comments Blood Pressure 132/82 11/22/2023 10:28 AM CDT Pulse 84 11/22/2023 10:28 AM CDT Temperature 36.6 ??C (97.8 ??F) 11/22/2023 1 0:28 AM CDT Respiratory Rate 18 11/22/2023 10:2 8 AM CDT Oxygen Saturation 98% 11/22/2023 10: 28 AM CDT Inhaled Oxygen Concentration - - Weight 124.6 kg (274 lb 9.6 oz) 024 10:28 AM CDT Height 170.2 cm (5' 7 ) 11/22/2023 10:2 8 AM CDT Body Mass Index 43.01 11/22/2023 10:28 AM CDT documented in this encounter Patient Instructions * Patient Instructions* Carmina Walters MD - 11/22/2023 10:20 AM CDT Images from the original note were not included. High Fiber Diet About this topic Dietary fiber helps many illnesses. It can help you if you cannot have a bowel movement or if you have loose stools. Fiber can also lower your risk of diabetes and heart disease. Fiber can help with weight loss by helping you feel cohen after meals. You can find fiber in fruits, vegetables, nuts and seeds, whole grains, and legumes. The fiber is the part of the plant food that your body cannot break down and absorb. It passes through your stomach, small bowel, colon, and out your body. There are two kinds of fiber: Insoluble and soluble fiber. Insoluble fiber helps you pass foods through your digestive system. Insoluble fiber can help you with hard stools. Soluble fiber draws waterin and turns it into a gel-like form making digestion slow down. Both are important. What will the results be? A high fiber diet can help you with bowel problems like stools that are too hard or too loose. It can also help prevent hemorrhoids and other colon problems. A high fiber diet can also help control your weight and lower blood sugar and cholesterol levels. What changes to diet are needed? The amount of fiber you need is based on your age, gender, and health. Try to get 20 to 35 grams of fiber in your diet each day. Most people in the [place] only eat 15 grams of fiber daily. Drink at least 8 cups (1920 mL) of fluid each day. When is this diet used? Your doctor may talk with you about this diet if you have belly problems. Who should use this diet? Older children, young people, and adults can have this diet. Who should not use this diet? Some people should not use this diet. Check with your doctor if you have: Diverticulitis Active Crohn's disease Ulcerative colitis Bowel inflammation Certain types of GI surgery Talk to your child's doctor before starting your child on a high fiber diet. What foods are good to eat? To get the most from fiber in your diet, eat a wide variety of high fiber foods. Some examples are: Vegetables like: Spinach Peas Artichoke Sweet potatoes with skin Broccoli Fruits like: Raspberries Blueberries Blackberries Apples with skin Dried fruits Grains like: Oat bran Barley Whole wheat products Wheat bran Dried beans and nuts like: Mitchell seeds Almonds Black beans Chickpeas What problems could happen? Sudden increase of fiber intake can lead to gas, pain, fullness in your belly, and loose stools. Increase fiber gradually while drinking plenty of fluids. Do not eat too much fiber. Your body will not take in vitamins and minerals as well if you eat too much fiber. When do I need to call the doctor? Health problem is not better or you are feeling worse. Helpful tips Start slow as you add more fiber to your diet. This may help prevent gas or cramps. Try to eat the same amount of fiber each day. Aim to get your fiber from nutritious foods. Supplements do not offer the same benefits as food. Read food labels with care to learn how much fiber is in the food you are eating. If possible, do not peel fruits or vegetables before you eat them. Eating the peel gives you more fiber. Last Reviewed Date 2021-01-13 Consumer Information Use and Disclaimer This generalized information is a limited summary of diagnosis, treatment, and/or medication information. It is not meant to be comprehensive and should be used as a tool to help the user understand and/or assess potential diagnostic and treatment options. It does NOT include all information about conditions, treatments, medications, side effects, or risks that may apply to a specific patient. Itis not intended to be medical advice or a substitute for the medical advice, diagnosis, or treatment of a health care provider based on the health care provider's examination and assessment of a patient???s specific and unique circumstances. Patients must speak with a health care provider for complete information about their health, medical questions, and treatment options, including any risks orbenefits regarding use of medications. This information does not endorse any treatments or medications as safe, effective, or approved for treating a specific patient. [employer] and its affiliates disclaim any warranty or liability relating to this information or the use thereof. The use of this information is governed by the Terms of Use, available at https://www.[employer].com/en/know/htdmdaar-rwtsljyamtbpx-qwigo Copyright Copyright ?? 2022 [employer] and its affiliates and/or licensors. All rights reserved. Patient Education Lung cancer screening The Basics Written by the doctors and editors at [employer] What is lung cancer screening???--??Lung cancer screening is a way in which doctors check the lungsfor early signs of cancer in people who have no symptoms of lung cancer. The goal of screening is to find lung cancer early, before it has a chance to grow, spread, or cause problems. Doctors suggest screening for certain people who are at high risk of lung cancer because they smoke, or used to smoke. Although screening is not likely to be helpful for everyone who smokes, doctors do think it might help prevent cancer deaths in people who smoke a lot or smoked for many years (even if they have already quit). Researchers have studied chest X-rays and low-dose CT scans, 2 types of imaging tests, to see if they are good screening tools. A low-dose CT scan uses much less radiation than a typical CT scan and shows a more detailed image of the lungs than a standard X-ray. Chest X-rays do not work for screening for lung cancer. But low-dose CT scans are helpful screening tools for some people at high riskof lung cancer. The best way to lower your chances of getting or dying from lung cancer is to quit smoking. No matter how much or how long you have smoked, quitting is a good idea. Quitting now will reduce your chances not only of lung problems, but also of heart disease and many forms of cancer. Can I be screened with a standard X-ray instead of a low-dose CT scan???--??There is no proof that a standard X-ray for screening helps extend life. Experts do not recommend chest X-rays as a way to screen for lung cancer. Who should be screened for lung cancer???--??For some people with a heavy or long smoking history, screening can save lives. If the following 3 statements are all true for you, ask your doctor about screening: ??You are 50 to 80 years old. ??You have smoked an amount that is equal to at least 1 pack a day for 20 years (for example, 2 packs a day for 10 years). ??You still smoke now or quit smoking in the past 15 years. In addition to your smoking history, the decision to be screened should also consider these things: ??Your general health - Think about whether your health is good enough to get treatment if screening shows that you do have cancer. Your doctor can help you answer this. If your overall health is poor, lung cancer screening might not be recommended. ??The costs involved in screening - If you are thinking about screening, check with your insurance company to find out if they will cover some or all of the cost. You can also ask your doctor's office what you might have to pay. If you have Medicare, they will cover lung cancer screening if you are50 to 77 years old. It's important to be aware of this age limit if you are older than 77. What are the benefits of being screened for lung cancer???--??The main benefit of screening is thatit helps doctors find cancer early, when it is usually easier to treat. This might lower your chances of dying of lung cancer. What are the possible drawbacks to being screened???--??The drawbacks include: ??False positives - Low-dose CT scans can sometimes show a false positive, meaning that it suggests a person might have cancer when they do not. This can lead to unneeded worry and to more tests. For example, people who have a false positive might need to have a follow-up full-dose CT scan, whichexposes them to more radiation. They sometimes also need a lung biopsy, which is a procedure to remove a small sample of lung tissue. This procedure can be painful and can sometimes lead to problems,such as bleeding or a collapsed lung. ??Radiation exposure - Like all X-rays, CT scans expose you to some radiation. Although the radiation dose from a screening CT scan is low, you would need to have a scan every year for continued screening. What happens during a low-dose CT scan???--??When you have a low-dose CT scan, you lie on a slidingtable. The CT scan machine is shaped like a giant donut, and you slide through the large hole in the center. As you slide through, the machine takes pictures of the inside of your body. The process only takes a few minutes and is painless. What happens after a low-dose CT scan???--??After a low-dose CT scan, you should get a phone call or letter with your results. If you do not hear back about your results in about 2 weeks, call your doctor or nurse's office. Do not assume that your scan was normal if you hear nothing. What if my CT scan is abnormal???--??If your scan is abnormal, don't panic. More than 95 out of 100people with an abnormal scan return clerk not to have lung cancer. But you will need more tests to findout whether you actually have cancer. How often should I have a low-dose CT scan for screening???--??If you and your doctor decide that screening is right for you, you will need to have a low-dose CT scan once a year if your scans continue to be normal. You can stop getting screened at age 80 or once you have gone 15 years or longer without smoking. However, remember that Medicare does not cover screening for people older than 77 years. All topics are updated as new evidence becomes available and our peer review process is complete. This topic retrieved from [employer] on: Jun 18, 2023. Topic 96722 Version 14.0 Release: 32.2.4 - C32.56 ?2023??[employer]. and/or its affiliates.??All rights reserved. Consumer Information Use and Disclaimer Disclaimer: This generalized information is a limited summary of diagnosis, treatment, and/or medication information. It is not meant to be comprehensive and should be used as a tool to help the userunderstand and/or assess potential diagnostic and treatment options. It does NOT include all information about conditions, treatments, medications, side effects, or risks that may apply to a specificpatient. It is not intended to be medical advice or a substitute for the medical advice, diagnosis,or treatment of a health care provider based on the health care provider's examination and assessment of a patient's specific and unique circumstances. Patients must speak with a health care providerfor complete information about their health, medical questions, and treatment options, including any risks or benefits regarding use of medications. This information does not endorse any treatments or medications as safe, effective, or approved for treating a specific patient. [employer] and its affiliates disclaim any warranty or liability relating to this information or the use thereof.The use of this information is governed by the Terms of Use, available at https://www.[employer].com/en/know/ftotwmjj-xjuwyroaqdska-lyvxp. 2023?? [employer] and its affiliates and/or licensors. Allrights reserved. Copyright ?2023??[employer]. and/or its affiliates.??All rights reserved. documented in this encounter Progress Notes * Carmina Walters MD - 11/22/2023 10:20 AM CDTSummary: acute SUBJECTIVE: Shantel Del Real is a 58-year-old year old female who presents for acute concern, lump right groin. Establish care. Ongoing one year. Center of the pubic area. Uncomfortable to touch. Noticing it more while getting in and out of car. Took an old 1/4 hydrocodone from a couple years ago which helped somewhat. No change with cough or sneeze. Wants to know what it is. Also asking for routine maintenance orders and discussion of these things. No problems updated. Review of Systems Constitutional: Negative for activity change, appetite change, chills, diaphoresis, fatigue and fever. HENT: Negative for congestion, ear pain, hearing loss, nosebleeds, postnasal drip, rhinorrhea, sinus pressure, sinus pain, sneezing, sore throat, tinnitus and trouble swallowing. Eyes: Negative for pain, redness and visual disturbance. Respiratory: Negative for cough, choking, shortness of breath and wheezing. Cardiovascular: Negative for chest pain, palpitations and leg swelling. Gastrointestinal: Negative for abdominal pain, blood in stool, constipation, diarrhea, nausea and vomiting. Endocrine: Negative for cold intolerance, heat intolerance, polydipsia and polyuria. Genitourinary: Negative for difficulty urinating, dysuria, flank pain, frequency, hematuria and urgency. Musculoskeletal: Negative for arthralgias, back pain, joint swelling, myalgias and neck pain. Skin: Negative for rash. Neurological: Negative for dizziness, tremors, syncope, weakness, numbness and headaches. Psychiatric/Behavioral: Negative for agitation, confusion, dysphoric mood and sleep disturbance. The patient is not nervous/anxious. Patient's past medical history, medications, allergies, family history, and social history reviewedand updated in Epic chart as necessary. Patient Active Problem List Diagnosis Bite by animal Class 3 severe obesity in adult ([facility]) Current Outpatient Medications: albuterol sulfate HFA 108 (90 Base) MCG/ACT inhaler, INHALE 2 PUFFS BY MOUTH EVERY 4 HOURS (FOR RESCUE ONLY), Disp: , Rfl: Review of patient's allergies indicates: No Known Allergies Past Surgical History: Procedure Laterality Date FRACTURE SURGERY JOINT REPLACEMENT LITHOTRIPSY TUBAL LIGATION Family History Problem Relation Name Age of Onset Arthritis Mother Katerina Asthma Mother Katerina Diabetes Mother Katerina Heart Disease Mother Katerina Hypertension Mother Katerina Katerina Kidney Disease Father Vincchiquita Kidney failure Father Zeke No Known Problems Sister No Known Problems Brother No Known Problems Brother No Known Problems Brother No Known Problems Daughter No Known Problems Son OBJECTIVE: Filed Vitals: 11/22/23 1028 BP: 132/82 Pulse: 84 Resp: 18 Temp: 97.8 ??F (36.6 ??C) TempSrc: Temporal SpO2: 98% Weight: 124.6 kg (274 lb 9.6 oz) Height: 1.702 m (5' 7 ) Physical Exam Constitutional: Appearance: Normal appearance. HENT: Right Ear: Tympanic membrane and ear canal normal. Left Ear: Tympanic membrane and ear canal normal. Nose: Nose normal. Mouth/Throat: Mouth: Mucous membranes are dry. Pharynx: Oropharynx is clear. Eyes: Extraocular Movements: Extraocular movements intact. Conjunctiva/sclera: Conjunctivae normal. Pupils: Pupils are equal, round, and reactive to light. Cardiovascular: Rate and Rhythm: Normal rate and regular rhythm. Pulses: Normal pulses. Heart sounds: Normal heart sounds. Pulmonary: Effort: Pulmonary effort is normal. Breath sounds: Normal breath sounds. Chest: Breasts: Right: Normal. No mass or skin change. Left: Normal. No mass or skin change. Abdominal: General: Bowel sounds are normal. There is no distension. Palpations: Abdomen is soft. Tenderness: There is no abdominal tenderness. Musculoskeletal: General: No swelling or tenderness. Skin: Comments: Subcutaneous fatty mass of the center of mons pubis, poorly circumscribed but measuring around 3 cm in size. Mildly tender. Somewhat mobile Neurological: General: No focal deficit present. Mental Status: She is alert and oriented to person, place, and time. Psychiatric: Mood and Affect: Mood normal. Behavior: Behavior normal. ASSESSMENT & PLAN: Shantel Del Real is a 58-year-old female presents to discuss with following. Prevention: - Cervical cancer screening [facility] 2 years ago. - STD screening declined/not indicated - Colon cancer screening offered colonoscopy/cologuard and pt will consider options and let me knowif she would like to pursue. - Diabetes screening ordered - Lipid panel screening ordered. - Discussed diet changes and exercise - Counseling and Education: Counseled on diet, fall prevention, end of life issues, exercise. - Breast cancer screening ordered - Immunizations: offered tdap, shingrix, prevnar and pt declines today. - Depression screening: neg - Lung cancer screening ordered Problem List Items Addressed This Visit None Visit Diagnoses Routine general medical examination at a health care facility - Primary Relevant Orders HEMOGLOBIN, GLYCOSYLATED LIPID PANEL BASIC METABOLIC PANEL HEPATITIS C ANTIBODY Skin mass Relevant Orders Ambulatory referral to General Surgery (OTHER) US SOFT TISS LOW BACK OR ABD WALL Encounter for mammogram to establish baseline mammogram Relevant Orders MG SCREENING W SHAZIA SHOAIB DIGI Former smoker Relevant Orders CT LUNG SCREENING CNSLING TO DISCUSS NEED FOR LUNG CANCER SCRNING Lab: None Specified Return for lab fasting when convenient AND 1 year follow up CPX. CARMINA WALTERS MD Family PracticeDirvin meets the Low Dose Lung Cancer Screening criteria; she is age 50-80, has a tobacco smoking history of at least 20 pack-years, is a current smoker or has quit smoking within the last 15 years, is asymptomatic (no signs or symptoms of lung cancer) and has not had and LDCT in the past 12 months. History Smoking Status Former Types: Cigarettes Smokeless Tobacco Never Filed Vitals: 11/22/23 1028 BP: 132/82 Pulse: 84 Resp: 18 Temp: 97.8 ??F (36.6 ??C) TempSrc: Temporal SpO2: 98% Weight: 124.6 kg (274 lb 9.6 oz) Height: 1.702 m (5' 7 ) Shared decision making occurred with Shantel, including the use of one or more decision aids, benefits and harms of screening, follow-up diagnostic testing, over-diagnosis, false positive rate, and total radiation exposure. Shantel was counseled on the importance of adherence to annual lung cancer LDCT screening, impact of comorbidities and her ability or willingness to undergo diagnosis and treatment. Additionally, we discussed the abstinence of smoking (no longer smoking). To obtain maximal benefit from this screening, smoking cessation and long-term abstinence from smoking is critical. Discussed the significance of positive screen - false-positive LDCT results often occur. A large percentage of all positive results do not lead to a diagnosis of cancer. Usually further imaging can resolve most false-positive results; however, some patients may require invasive procedures. Discussed the risks associated with radiation from annual LDCT- Radiation exposure is about the same as for a mammogram, which is about 1/3 of the annual background radiation exposure from everyday life. Starting screening at age 50 is not likely to increase cancer risk from radiation exposure. Patients with comorbidities resulting in life expectancy of < 10 years, or that would preclude treatment of an abnormality identified on CT, should not be screened due to lack of benefit. documented in this encounter Plan of Treatment Scheduled Orders Name Type Priority Associated Diagnoses Orde r Schedule MG SCREENING W SHAZIA SHOAIB DIGI MAMMO Routine Encounter for mammogram to establish baseline mammogram Expected: 11/22/2023, Expires: 01/21/[address] Routine Former smoker Expected: 11/22/2023, Expires: 11/21/2024 CNSLING TO DISCUSS NEED FOR LUNG CANCER SCRNING Procedures Routine Former smoker Ordered: 11/22/2023 Scheduled Referrals Name Type Priority Associated Diagnoses Orde r Schedule Ambulatory referral to General Surgery (OTHER) Referral Routine Skin mass Ordered: 11/22/2023 documented as of this encounter Results * US SOFT TISS [...] Carmina Walters MD ULTRASOUND Final Re sult * HEPATITIS C ANTIBODY (12/04/2023 7:17 AM CDT) HEPATITIS C AB NON-REACTI VE NON-REACT JULIENNE 12/04/2023 10:20 PM CDT [facility] Comment: ANTIBODIES TO HCV NOT DETECTED. DOES NOT EXCLUDE THE POSSIBILITY OF EXPOSURE TO HCV. 12/04/2023 7:17 AM CDT Carmina Walters MD LABORATORY Final Re sult [facility] [address] [place] [address], [id number] * (ABNORMAL) BASIC METABOLIC PANEL (12/04/2023 7:17 AM CDT) Pathologist [facility] SODIUM S/P/B 140 136 - 145 MMOL/L 12/04/2023 2:35 PM CDT [facility] POTASSIUM S/P/B 4.3 3.5 - 5.1 MMOL/L 12/04/2023 2:35 PM CDT [facility] CHLORIDE S/P/B 104 98 - 107 MMOL/L 12/04/2023 2:35 PM CDT [facility] CO2 30.2 21 - 32 MMOL/L 12/04/2023 2:35 PM CDT [facility] GLUCOSE 104(H) 70 - 99 MG/DL 12/04/2023 2:35 PM CDT -[facility] BUN 17 7 - 18 MG/DL 12/04/2023 2:35 PM CDT [facility] CREATININE S/P/B 0.99 0.55 - 1.02 MG/DL 12/04/2023 2:35 PM CDT [facility] CALCIUM S/P/B 8.6 8.4 - 10.5 MG/DL 12/04/2023 2:35 PM CDT [facility] ANION GAP 5.8 5 - 15 MMOL/L 12/04/2023 2:35 PM CDT -[facility] Comment:REFERENCE RANGE NOT ESTABLISHED OSMOLALITY (CALC) 292 MOSM/KG 024 2:35 PM CDT [facility] Comment:REFERENCE RANGE NOT ESTABLISHED GFR ESTIMATE 67(L) >90 ML/MIN/1. 73 M2 12/04/2023 2:35 PM CDT [facility] GFR NOTES GFR REFERENCE S: 12/04/2023 2:35 PM CDT [facility] Comment: THE ESTIMATED GFR IS CALCULATED USING [...] m2 12/04/2023 7:17 AM CDT us Carmina Walters MD LABORATORY Final Re sult [facility] [address] [place] [address], [place] [phone] * (ABNORMAL) LIPID PANEL (12/04/2023 7:17 AM CDT) CHOLESTEROL 187 <200 MG/DL 12/04/2023 2:35 PM CDT [facility] TRIGLYCERIDES 74 <150 MG/DL 12/04/2023 2:35 PM CDT [facility] HDL 58 >40 MG/DL 12/04/2023 2:35 PM CDT [facility] LDL-C 114(H) <100 MG/DL 12/04/2023 2:35 PM CDT [facility] VLDL CALCULATION 15 5 - 28 MG/DL 12/04/2023 2:35 PM CDT [facility] CHOL/HDL RATIO 3.2 0.0 - 4.0 12/04/2023 2:35 PM CDT [facility] LDL/HDL 2.0 0.41 - 2.13 12/04/2023 2:35 PM CDT [facility] NON HDL CHOLESTEROL 129 <140 MG/DL 12/04/2023 2:35 PM CDT [facility] 12/04/2023 7:17 AM CDT Carmina Walters MD LABORATORY Final Re sult Performing Organization Address [facility] Co de Phone Number [id number] [place] [address], [place] [phone] * (ABNORMAL) HEMOGLOBIN, GLYCOSYLATED (12/04/2023 7:17 AM CDT) HGB A1C 5.9 4.5 - 6.2 % 12/04/2023 2:39 PM CDT [facility] ESTIMATED AVG GLUCOSE 123(H) 74 - 106 MG/DL 12/04/2023 2:39 PM CDT [facility] 12/04/2023 7:17 AM CDT Carmina Walters MD LABORATORY Final Re sult Performing Organization Address [facility] Co de Phone Number [address] [place] [address], [place] [phone] documented in this encounter Visit Diagnoses Diagnosis Routine general medical examination at a health care facility- Primary Skin mass Localized superficial swelling, mass, or lump Encounter for mammogram to establish baseline mammogram Other screening mammogram Former smoker Personal history of tobacco use, presenting hazards to health Skin mass Localized superficial swelling, mass, or lump documented in this encounter Care Teams Rod Mill Tender Relationship Specialty Start Date End Date Carmina Walters MD [address] [facility] [address] [place] [address] PCP - General FAMILY PRACTICE 11/22/23 documented as of this encounter
--- OUTSIDE RECORDS SUMMARY | 2024-05-04 17:06 | XMS_ITS | Encounter Summary ---
Author Organization [facility] Address [address] [place] [address]. [place], [place] [address] [place] [address] Care Team Providers Care Ballet Master/Mistress Name Role Phone Unavailable Primary Care Provider Unavailabl e Encounter Details Date Type Department Care Team (Late st Contact Info) Description 08/03/1999 Abstract [facility] CONVERSION [address] [place] [address] , Generic Conversion, Social History Tobacco Use Types Packs/Day Years Used Date Smoking Tobacco: Never Assessed Comments Unknown Sex and Gender Information Value Date Recorded Sex Assigned at Not on file Legal Sex Female 4:57 PM CDT Gender Identity Not on file Sexual Orientation Not on file documented as of this encounter Plan of Treatment Not on file documented as of this encounter Visit Diagnoses Not on filedocumented in this encounter
--- OUTSIDE RECORDS SUMMARY | 2024-05-04 17:06 | XMS_ITS | Encounter Summary ---
Author Organization [facility] Address [address] [place] [address]. [place], [place] [address] [place] [address] Care Team Providers Care Census Clerk Name Role Phone None, Provider Primary Care Provider Artura ble Encounter Details Date Type Department Care Team (Latest Contact Info) Description 09/29/2021 Travel Social History Tobacco Use Types Packs/Day Years Used Date Smoking Tobacco: Never Smokeless Tobacco: Never Alcohol Use Standard Drinks/Week Comments Never 0 (1 standard drink = 0.6 oz pur e alcohol) Comments No Sex and Gender Information Value Date Recorded Sex Assigned at Not on file Legal Sex Female 4:57 PM CDT Gender Identity Not on file Sexual Orientation Not on file COVID-19 Exposure Response Date Recorded In the last 10 days, have yo u been in contact with someone who was confirmed or suspected to have Coronavirus/COVID-19? No / Unsure 09/29/2021 3:06 PM CDT documented as of this encounter Plan of Treatment Not on file documented as of this encounter Visit Diagnoses Not on filedocumented in this encounter Care Teams Census Clerk Relationship Specialty Start Date End Date None, Provider, PCP - General 09/29/21 11/21/23 documented as of this encounter
--- OUTSIDE RECORDS SUMMARY | 2024-05-04 17:06 | XMS_ITS | Encounter Summary ---
Author Organization [facility] Address [facility] [place] [address] [place] [address] Care Team Providers Care Munitions Handler Supervisor Name Role Phone Carmina Lopez MD Primary Care Provider + Reason for Visit * Reason Onset Date Comments Record Request 11/26/2023 Encounter Details Date Type Department Care Team (Late st Contact Info) Description 11/26/2023 Telephone [facility] Family [facility] [address] [facility] [address] [place] [phone] Carmina Lopez MD [address] [phone] Record Request Social History Tobacco Use Types Packs/Day Years [...] as of this encounter Progress Notes * Janis Lopez MA - 11/26/2023 10:58 AM CDT I have faxed [place] for pap report documented in this encounter Plan of Treatment Not on file documented as of this encounter Visit Diagnoses Not on filedocumented in this encounter Care Teams Munitions Handler Supervisor Relationship Specialty Start Date End Date Carmina Lopez MD [address] [facility] [address] [place] [address] PCP - General FAMILY PRACTICE 11/22/23 documented as of this encounter
--- OUTSIDE RECORDS SUMMARY | 2024-05-04 17:06 | XMS_ITS | Encounter Summary ---
Author Organization [facility] Address [facility] [place] [address] Care Team Providers Care Recovery Engineer Name Role Phone Unavailable Primary Care Provider Unavailabl e Encounter Details Date Type Department Care Team (Latest Contact Info) Description 01/21/2011 11:03 AM CDT - 01/21/2011 11:59 PM CDT Hospital Encounter [facility] Imaging Services [address] [facility] [address] [place] [address] Discharge Disposition: Home or Self Care Social [...] on file documented as of this encounter Miscellaneous Notes * Miscellaneous Scans - Document, Scanned - 01/27/2011 9:38 AM CDT * Miscellaneous Scans - Document, Scanned - 01/26/2011 2:32 PM CDT documented in this encounter Plan of Treatment Not on file documented as of this encounter Procedures Procedure Name Priority Date/Time Associated Diagnosis Comments US RETROPERITONEAL COMPLETE Routine 01/21/2011 11:00 AM CDT Kidney stone documented in this encounter Results * US [...] further evaluation. Ana Chawla MD US ORDERABLES documented in this encounter Visit Diagnoses Diagnosis Kidney stone Calculus of kidney documented in this encounter
--- OUTSIDE RECORDS SUMMARY | 2024-05-04 17:06 | XMS_ITS | Encounter Summary ---
Author Organization [facility] Address [facility] [facility] [place] [address] [place] [address] Care Team Providers Care Credit Verification Clerk Name Role Phone Carmina Lopez MD Primary Care Provider + Encounter Details Date Type Department Care Team (Latest Contact Info) Description 12/04/2023 - 12/04/2023 11:59 PM CDT Hospital Encounter [facility] [address] [place] [address] Carmina Lopez MD [address] [address] Discharge Disposition: Home or Self Care (Routine [...] on filedocumented in this encounter Care Teams Credit Verification Clerk Relationship Specialty Start Date End Date Carmina Lopez MD [address] [facility] [address] [place] [address] PCP - General FAMILY PRACTICE 11/22/23 documented as of this encounter
--- OUTSIDE RECORDS SUMMARY | 2024-05-04 17:06 | XMS_ITS | Encounter Summary ---
Author Organization [facility] Address [facility] [facility]. [place], [place] [address] [place] [address] Care Team Providers Care Bacteriologist Pharmaceutical Name Role Phone Carmina Lopez MD Primary Care Provider + Encounter Details Date Type Department Care Team (Latest Contact Info) Description 12/04/2023 Travel Social History Tobacco Use Types Packs/Day [...] on filedocumented in this encounter Care Teams Bacteriologist Pharmaceutical Relationship Specialty Start Date End Date Carmina Lopez MD [address] [place] [address] PCP - General FAMILY PRACTICE 11/22/23 documented as of this encounter
--- OUTSIDE RECORDS SUMMARY | 2024-05-04 17:06 | XMS_ITS | Continuity of Care Document ---
Author Organization [facility] - [facility], [facility] Address [address] [place] [address] Assessment Encounter Date Assessment Date Assessment LastModified by Organization Details LastModified Time 04/09/2024 04/09/2024 This note is dictated and transcribed by [employer]. It Applications Analyst variances may occur. Despite proofreading, typographical errors may occur. Occasional wrong-word or 'akikk-y-imyj' substitutions may have occurred due to the inherent limitations of voice recording. Read the chart carefully and recognize, using context, where substitutions have occurred. [email or web address] Not available 04/09/2024 12:53:44 Plan of Treatment Reminders Order Date Submit Date Provider Last Modified By Organization Details Last Modified Time Details Appointments None recorded. Lab None recorded. Referral None recorded. Procedures None recorded. Surgeries None recorded. Imaging None recorded. Medication Orders tramadol 50 mg tablet 2023 0[facility] [place], [address], 12:55:26 Patient TargetsNo targets recorded. Patient InstructionsNo instructions recorded. Reason for Referral None Reported. Results Created Date Observation Date Name Description Value Unit Range Abnormal Flag Note LastModifiedBy Organization Detail LastModifiedTime 04/01/20 24 XR, ankle , 3 or more view No observ ation record ed. [email or web address] [facility] [place] [address], [place], [address], 04/01/2024 09:22:08 Result Notes None recorded. Problems Name Problem SNOMED Code Status Onset Date Resolution Date Notes Provider Name and Address Organization Details Recorded Time Asthma 915667899 Active Not Available [facility] 3 17:43:27 Localized, secondary osteoarthr itis of the ankle and/or foot 255753537 Active 2021 Not Available [facility] 3 17:43:27 Ankle pain 039701488 Active 2021 Not Available [facility] 3 17:43:27 Ankle pain 074456310 Active Not Available [facility] 3 17:43:27 Orthopedic hardware in situ 492434449 Active 2021 Not Available [facility] 3 17:43:27 Peripheral venous insufficie ncy 97376162 Active 2023 Maycol Mcguire DPM [address], [place], [address] , [employer] 4 09:19:08 Open wound of right ankle 9906916654792 9103 Active 2023 Maycol Mcguire DPM [address] [employer], [address], [place], [address] , [employer] 4 09:20:26 Problem Notes None recorded. Procedures Surgical History Date Name Laterality Status Provider Name and Address Organization Details Recorded Time 4 Wound Care-Podiatry completed Tanvi Romero RN [facility] [employer] 04/09/2024 12:50:43 9 Unlisted px femur/knee completed Not Available [facility] 06/21/2022 17:42:59 Imaging Results None recorded. Procedure Notes None recorded. Medical Equipment None [...] TOPICAL ROUTE 2 TIMES PER DAY 03/31 /2024 completed Not Available Not Available Not Available Vitals Date Recorded Heart rate Body temperature Oxygen saturation Oxygen saturation in Arterial blood by Pulse oximetry Systolic blood pressure Diastolic blood pressure Provider Name and Address Organization Details Last Updated DateTime 4 86 /min 97.4 [degF] 98 % 98 % 144 mm[Hg] 70 mm[Hg] Tanvi Romero RN [place] [facility] 4 12:27:32 Social History Question Answer Notes LastModified by Organizat ion Details LastModified Time Tobacco Smoking Status Former Smoker 1PPD Not Available [employer] 06/21/2022 17:42:47 Do You Have An Advance Directive? No [id number] Information not available 06/21/2022 What Is Your Level Of Alcohol Consumption? None [id number] Information not available 06/21/2022 What Is Your Level Of Caffeine Consumption? Moderate [id number].[id number] 1865 Information not available 06/21/2022 In The 14 Days Before Symptom Onset, Have You Had Close Contact With A Laboratory-confirm ed COVID-19 While That Case Was Ill? No [id number] Information not available 06/21/2022 In The 14 Days Before Symptom Onset, Have You Had Close Contact With A Person Who Is Under Investigation For COVID-19 While That Person Was Ill? No [id number] Information not available 06/21/2022 What Type Of Diet Are You Following? REGULAR [id number].[id number] 6049 Information not available 06/21/2022 What Is The Highest Grade Or Level Of School You Have Completed Or The Highest Degree You Have Received? 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 06/30/2021 [id number] Information not available 06/21/2022 What Is Your Relationship Status? [id number].341607 9252 Information not available 06/21/2022 At What Age Did You Start Smoking Tobacco? 16 [id number].949945 9047 Information not available 06/21/2022 Are You Passively Exposed To Smoke? Yes [id number].569009 3732 Information not available 06/21/2022 Do You Use Sunscreen Routinely? Yes [id number].605733 4080 Information not available 06/21/2022 Has Tobacco Cessation Counseling Been Provided? No MIGRATION.186666 1834 Information not available 06/21/2022 Have You Recently Traveled Abroad? No [id number].310321 4146 Information not available 06/21/2022 Do You Or Have You Ever Used Any Other Forms Of Tobacco Or Nicotine? No MIGRATION.565725 7539 Information not available 06/21/2022 Sex: Unknown Functional Status Question Answer Note LastModified by Organizat ion Details LastModified Time What is your exercise level? Occasional [id number] Information not available 06/21/2022 Mental Status None recorded. Family History Relationship Description Onset Age of this Age Resolved Age Notes LastModified by Organization Details LastModified Time Mother Myocardial infarction 59 massiv e [id number] Not available 06/21/2022 17:43:00 Father Kidney disease 92 [id number] Not available 06/21/2022 17:43:00 Medical History Condition Response PAIN Y ASTHMA Y Gynecological HistoryNo gynecological history recorded. Obstetrics History GPAL:G 0 P 0 0 0 0 Past Encounters Encounter ID Performer Location Encounter Start Date Encounter Closed Date Diagnosis/Indication Diagnosis SNOMED-CT Code Diagnosis ICD10 Code Diagnosis Note [id number] Maycol Mcguire DPM [facility] [place] [address] [facility] [address] [place] [address] 03/31/2024 14:00:55 04/01/2024 09:22:26 Open wound of right ankle 0324344864 8805802 S91.001A Betadine wet-to-dry dressings- dailyofflo adingclean wound daily with Hibiclense levation when at restfollow -up wound care 1 week Peripheral venous insufficiency 73252819 I87.2 educated on mild compressio ndaily compressio n with Anthony control swellingpr event wound from getting bigger Orthopedic hardware in situ 572289818 Z97.8 [id number] Maycol Mcguire DPM [facility] [address] [place] [address] 04/09/2024 11:49:03 04/09/2024 13:07:55 Open wound of right ankle 8865551716 3963417 S91.001A Betadine wet-to-dry dressings- dailyofflo adingclean wound daily with Hibiclense levation when at restfollow -up wound care 1 week Peripheral venous insufficiency 63812708 I87.2 educated on mild compressio ndaily compressio n with Anthony control swellingpr event wound from getting bigger Orthopedic hardware in situ 891073608 Z97.8 Health Concerns Section Related Observation LastModified by Organization Detai ls LastModified Time None Recorded Concern Status LastModified by Organization Details LastModified Time None Recorded Payers Encounter Date Sequence Insurance Name Policy Number Policy Russ Covered Member ID Russ Member ID Guarantor Name 04/09/2024 1 [facility] RN PRIOR AUTHORIZATION FUND - OPEN ACCESS III (PPO) [id number] Shantel Del Real [id number] Shantel Del Real Notes Date Note Type Note Provider Name and Address Organization Details Recorded Time 04/09/2024 text/html . Patient is a 58-year-old female who returns the office for open wound to the right lateral ankle she has a stable healing wound with fibrotic tissue she denies any acute signs of infection she states she has pain to the wound. Patient denies any fever, chills, nausea or vomiting. Maycol Mcguire DPM [address] [facility], [place] [address], [place], [address], [facility] 04/09/2024 13:02:24 OBGyn Episode No OBEpisode recorded.
--- OUTSIDE RECORDS SUMMARY | 2024-05-04 17:06 | XMS_ITS | Encounter Summary ---
Author Organization [facility] Address [address] [place] [address]. [place], [place] [address] [place] [address] Care Team Providers Care Public Information Officer Name Role Phone Unavailable Primary Care Provider Unavailabl e Encounter Details Date Type Department Care Team (Late st Contact Info) Description 08/02/1999 Abstract [facility] CONVERSION [address] [place] [address] , Generic Conversion, Social History [...]
--- OUTSIDE RECORDS SUMMARY | 2024-05-04 17:06 | XMS_ITS | Encounter Summary ---
Author Organization [facility] Address [address] [place] [address]. [place] [address] [place] [address] Care Team Providers Care Biology Specimen Technician Name Role Phone None, Provider Primary Care Provider Unavaila ble Reason for Visit * Reason Comments Animal Bite Encounter Details Date Type Department Care Team (Late st Contact Info) Description 09/29/2021 3:32 PM CDT - 09/29/2021 4:00 PM CDT Emergency [facility] [place] [address] Franck Ceballos PA-C [address] [place] [id number] Animal Bite Discharge Disposition: Home or Self Care (Routine [...] PM CDT documented as of this encounter Last Filed Vital Signs Vital Sign Reading Time Taken Comments Blood Pressure 125/102 09/29/2021 3:22 PM CDT Pulse 96 09/29/2021 3:22 PM CDT Temperature 36.1 ??C (96.9 ??F) 09/29/2021 3:22 PM CD T Respiratory Rate 18 09/29/2021 3:22 PM CDT Oxygen Saturation 97% 09/29/2021 3:22 PM CDT Inhaled Oxygen Concentration - - Weight 119.3 kg (263 lb) 09/29/2021 3:22 PM CDT Height 170.2 cm (5' 7 ) 09/29/2021 3:22 PM CDT Body Mass Index 41.19 09/29/2021 3:22 PM CDT documented in this encounter Discharge Instructions * Discharge Instructions* Franck Ceballos PA-C - 09/29/2021 3:41 PM CDT Keep the area clean with antibacterial soap and water. Keep the area bandaged. Finish your Augmentin prescription that was given x5 days by urgent care. I also took the extended 5 days worth of Augmentin Today, for total of 10 days. [id number] pain reliever as needed. Follow-up closely with your primary doctor in 2 to 3 days for reevaluation. Return to the emergency room if you have fever of 100.4 Fahrenheit or greater, if the wound is not significantly enlarging or draining purulent drainagedespite medication, or if further concern * Attachments The following attachments cannot be sent through Care Everywhere. * Animal Bites Discharge Instructions (Kazakh) documented in this encounter Medications at Time of Discharge amoxicillin-clavu lanate (AUGMENTIN) 875-125 MG tablet Take 1 tablet (875 mg total) by mouth 2 (two) times daily for 5 days. 10 tablet 09/29/2021 10/04/2021 predniSONE (DELTASONE) 10 mg tablet Take 6 tablets oral daily for 3 days then 5 tablets daily for 3 days 4 tablets daily for 3 days then 3 tablets daily for 3 days then 2 tablets daily for 1 day then 1 tablet daily for 1 day then stop. 12/21/2020 11/22/2023 documented as of this encounter ED Notes * Johanna Rebollar RN - 09/29/2021 3:55 PM CDT Provider discussed today's findings with the patient/family. The patient has been given informationregarding their treatment, follow up and concerning symptoms for which they should seek urgent or emergent attention. I have expressed the the importance of seeking attention should there be any new,or worsening symptoms or persistence of their condition. Patient verbalized understanding of the discharge instructions. * Franck Ceballos PA-C - 09/29/2021 3:39 PM CDTSummary: cat bite ED NOTE Shantel Nasima 1965 Chief Complaint Chief Complaint Patient presents with ??? Animal Bite History of Present Illness Patient presents ambulatory to the emergency room through triage complaining of cat bite injury to left lateral lower leg. States that she was bitten by her own cat last Sunday, 6 days ago. Has a small skin tear which is mildly gaping, as well as surrounding bruising. Has a very small area of surrounding redness. No purulent drainage reported. Denies fever, chills, sweats. Denies numbness distally or inability to bear weight. She was seen at [place], [place] urgent care on Sunday, 3 days ago. Placed tho 5-day course of Augmentin which she is currently taking. Placed on naproxen for pain. She has notfollowed up with her primary care provider. States that the wound is not worsening, and actually that it seems to be shrinking and getting better. Medical History ALLERGIES: No Known Allergies MEDICATIONS: Prior to Admission medications Medication Sig Start Date End Date Taking? Authorizing Provider amoxicillin-clavulanate (AUGMENTIN) 875-125 MG tablet Take 1 tablet (875 mg total) by mouth 2 (two)times daily for 5 days. 09/29/21 10/04/21 Yes Franck Ceballos PA-C PAST MEDICAL HISTORY: Past Medical History: Diagnosis Date ??? Renal disorder PAST SURGICAL HISTORY: Past Surgical History: Procedure Laterality Date ??? FRACTURE SURGERY ??? LITHOTRIPSY FAMILY HISTORY: No family history on file. SOCIAL HISTORY: Social History Tobacco Use ??? Smoking status: Never Smoker ??? Smokeless tobacco: Never Used Vaping Use ??? Vaping Use: Never used Substance Use Topics ??? Alcohol use: Never ??? Drug use: Never Review of Systems Review of Systems Constitutional: Negative for activity change, appetite change, fever and unexpected weight change. HENT: Negative for ear pain, sore throat and trouble swallowing. Eyes: Negative. Respiratory: Negative for cough, chest tightness and shortness of breath. Cardiovascular: Negative for chest pain, palpitations and leg swelling. Gastrointestinal: Negative for abdominal distention, abdominal pain, constipation, diarrhea, nauseaand vomiting. Endocrine: Negative. Genitourinary: Negative for dysuria, flank pain and hematuria. Musculoskeletal: Negative for arthralgias, back pain, myalgias and neck pain. Skin: Positive for wound. Negative for color change and rash (cat bite left leg). Allergic/Immunologic: Negative for immunocompromised state. Neurological: Negative for dizziness, speech difficulty, weakness, light- headedness, numbness and headaches. Hematological: Negative for adenopathy. Psychiatric/Behavioral: Negative. Physical Exam Filed Vitals: 09/29/21 1522 BP: (!) 125/102 Pulse: 96 Resp: 18 Temp: 96.9 ??F (36.1 ??C) TempSrc: Temporal SpO2: 97% Weight: 119.3 kg (263 lb) Height: 5' 7 (1.702 m) Physical Exam Vitals and nursing note reviewed. Exam conducted with a coroner's juror present. Constitutional: General: She is not in acute distress. Appearance: Normal appearance. She is well-developed. She is not ill-appearing, toxic-appearing or diaphoretic. HENT: Head: Normocephalic and atraumatic. Right Ear: External ear normal. Left Ear: External ear normal. Nose: Nose normal. Mouth/Throat: Mouth: Mucous membranes are moist. Pharynx: Oropharynx is clear. Eyes: Extraocular Movements: Extraocular movements intact. Conjunctiva/sclera: Conjunctivae normal. Pupils: Pupils are equal, round, and reactive to light. Neck: Thyroid: No thyromegaly. Trachea: No tracheal deviation. Cardiovascular: Rate and Rhythm: Normal rate and regular rhythm. Pulses: Normal pulses. Heart sounds: Normal heart sounds. Pulmonary: Effort: Pulmonary effort is normal. No respiratory distress. Breath sounds: Normal breath sounds. Abdominal: General: Abdomen is flat. Bowel sounds are normal. There is no distension. Palpations: Abdomen is soft. There is no mass. Tenderness: There is no abdominal tenderness. There is no guarding or rebound. Hernia: No hernia is present. Musculoskeletal: General: No swelling, tenderness, deformity or signs of injury. Normal range of motion. Cervical back: Normal range of motion and neck supple. No rigidity. Lymphadenopathy: Cervical: No cervical adenopathy. Skin: General: Skin is warm and dry. Capillary Refill: Capillary refill takes less than 2 seconds. Findings: No rash. Comments: Superficial skin tear puncture injury to left lateral lower leg from cat bite. Mild woundgaping, but no current drainage or bleeding. No purulence. Minimal surrounding erythema. Mild contusion at the site. No enlarged gaping wound in need of laceration repair. No necrotic skin tissue. Compartments soft and compressible, no signs of compartment syndrome. Approximately 3 cm diameter wound/erythema, which appears to be well-healing and granulating Neurological: General: No focal deficit present. Mental Status: She is alert and oriented to person, place, and time. Cranial Nerves: No cranial nerve deficit. Sensory: No sensory deficit. Motor: No weakness. Coordination: Coordination normal. Gait: Gait normal. Deep Tendon Reflexes: Reflexes normal. Psychiatric: Mood and Affect: Mood normal. Behavior: Behavior normal. Thought Content: Thought content normal. Judgment: Judgment normal. Diagnostic Studies / Procedures ELECTROCARDIOGRAMS: No results found for this visit on 09/29/21. LABORATORY STUDIES: No results found for this visit on 09/29/21. IMAGING STUDIES No orders to display ED Course / Medical Decision Making MDM Number of Diagnoses or Management Options Amount and/or Complexity of Data Reviewed Tests in the medicine section of CPT??: ordered and reviewed Risk of Complications, Morbidity, and/or Mortality Presenting problems: low Management options: low Patient Progress Patient progress: stable 3:23 PM-patient stable. Extremity/wound as noted. Neurovascular status intact. No signs of significant infection. No concerning vital signs. No SIRS criteria per vital signs. Nontoxic-appearing patient. She is on the appropriate therapy of Augmentin and states the wound is healing. She is able to follow-up with her primary care provider. No indication for emergent labs or imaging at this time. Patient given [place] for pain. Will discharge with extended Augmentin prescription and close PCP follow-up recommended. Return precautions to the ED given, patient voices understanding Medications HYDROcodone-acetaminophen (NORCO) 5-325 MG tablet 1 tablet (has no administration in time range) Clinical Impression Cat bite of left lower leg, initial encounter (Primary) Current Discharge Medication List START taking these medications Details amoxicillin-clavulanate (AUGMENTIN) 875-125 MG tablet Take 1 tablet (875 mg total) by mouth 2 (two)times daily for 5 days. Qty: 10 tablet, Refills: 0 Class: Print Disposition: Discharge Follow-Up: CHRISTIAN Jameson [address] [facility] [address] Call today FRANCK CEBALLOS PA-C 09/29/2021 Franck Ceballos PA-C 09/29/21 1548 Cosigned by Xiao Pickett MD at 09/30/2021 7:20 AM CDT * Johanna Dominguez RN - 09/29/2021 3:32 PM CDT Bed: 24 Expected date: Expected time: Means of arrival: Comments: * CHRISTIAN Trammell - 09/29/2021 3:22 PM CDT [place], [place] EMERGENCY DEPARTMENT ENCOUNTER Medical Screening Examination 09/29/21 3:25 PM Chief Complaint : Animal Bite HPI : Shantel Del Real is a 56-year-old female who presents *worsening left lower leg wound after cat bite 1 week ago.was on amoxicillin Vital Signs: Filed Vitals: 09/29/21 1522 BP: (!) 125/102 Pulse: 96 Resp: 18 Temp: 96.9 ??F (36.1 ??C) TempSrc: Temporal SpO2: 97% Weight: 119.3 kg (263 lb) Height: 5' 7 (1.702 m) Physical exam: A brief physical exam was completed to facilitate/expedite patient care. Salazar findings include: swelling redness to lateral left lower leg, area of necrosis. Distal pulses intact Plan: Labs & Imaging was ordered to facilitate patient care. CHRISTIAN TRAMMELL 09/29/2021 CHRISTIAN Trammell 09/29/21 1525 Cosigned by Xiao Pickett MD at 09/30/2021 7:20 AM CDT * Baldev Allan RN - 09/29/2021 3:18 PM CDT Pt to the ed reporting a cat bite Sunday from her cat. Cat's shots were not up to date. Pt was seenon Sunday for it was given an antibiotic. Pt has redness, swelling to the lower lt leg..BALDEV ALLAN RN documented in this encounter Plan of Treatment Not on file documented as of this encounter Visit Diagnoses Diagnosis Cat bite of left lower leg, initial encounter- Primary documented in this encounter Administered Medications Inactive Administered Medications - up to 3 most recent administrations Medication Order MAR Action Action Date Dose Rate Site HYDROcodone-acetaminophen (NORCO) 5-325 MG tablet 1 tablet 1 tablet, Oral, Once, 1 dose, On Claudia 09/29/21 at 1530, Maximum dose of acetaminophen is 4000 mg from all sources in 24 hours. Given 09/29/2021 3:45 PM CDT 1 tablet documented in this encounter Active and Recently Administered Medications Times are shown in CDT. Scheduled Medication Order 09/27/2021 09/28/2021 09/29/2021 HYDROcodone-acetaminophen (NORCO) 5-325 MG tablet 1 tablet (COMPLETED) 1 tablet, Oral, Once, 1 dose, On Claudia 09/29/21 at 1530, Maximum dose of acetaminophen is 4000 mg from all sources in 24 hours. 1545 (Given - Provid er: Johanna Rebollar RN) documented in this encounter Care Teams Biology Specimen Technician Relationship Specialty Start Date End Date None, Provider, PCP - General 09/29/21 11/21/23 documented as of this encounter
--- OUTSIDE RECORDS SUMMARY | 2024-05-04 17:07 | XMS_ITS | Encounter Summary ---
Author Organization [facility] Healthcare Address [address] [place] [address] Care Team Providers Care Piece Hand Name Role Phone Janiya Trotter NP Primary Care Provider [phone]- [phone] Encounter Details Date Type Department Care Team (Late st Contact Info) Description 11/14/2023 Telephone [facility] at [address] [id number] Delfina Winter MA Social History Tobacco Use Types Packs/Day Years Used Date Smoking Tobacco: Former Smokeless Tobacco: Never Alcohol Use Standard Drinks/Week Comments Never 0 (1 standard drink = 0.6 oz pur e alcohol) AUDIT-C Answer Date Recorded Q1: How often do you have a drink containing alcohol? Never 10/07/2021 Q2: How many drinks containi ng alcohol do you have on a typical day when you are drinking? Patient does not drink Q3: How often do you have si x or more drinks on one occasion? 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 Gender Identity Not on file Sexual Orientation Not on file documented as of this encounter Miscellaneous Notes * Telephone Encounter - Delfina Winter MA - 11/14/2023 11:56 AM CDT lv for pt to rs due to jh out sick let pt know that i can get her in 11/20 documented in this encounter Plan of Treatment Not on file documented as of this encounter Visit Diagnoses Not on filedocumented in this encounter Care Teams Piece Hand Relationship Specialty Start Date End Date Janiya Trotter NP [address] [place] [address] PCP - General Internal Medicine 10/07/21 documented as of this encounter
--- OUTSIDE RECORDS SUMMARY | 2024-05-04 17:07 | XMS_ITS | Referral Summary ---
Author Organization [facility] Address [address] [place] [id number] Care Team Providers Care Medical Radiation Dosimetrist Name Role Phone Janiya Trotter NP Primary Care Provider +1- [phone] Allergies No known active allergies Medications collagenase (SANTYL) ointment Apply topically daily 30 g 1 2 Active HYDROcodone-adriana taminophen (NORCO) 5-325 mg per tabletIndicatio ns:Pain Take 1 tablet by mouth every 4 (four) hours as needed for pain (use before dressing changes) 10 tablet 2 Active lidocaine (ASPERCREME) 4 % adhesive patch,medicated Place 1 patch on the skin daily as needed (pain) 10 patch 2 Active Active Problems Problem Noted Date Diagnosed Date Encounter for wellness examination 05/14/2023 Animal bite 10/07/2021 Assessment & Plan (10/09/2021 10:54 AM CDT): -Patient bit by her cat, completed augmentin [...] changes with Santyl, ABD, Kerlix, ADRIANA wrap Assessment & Plan (10/08/2021 10:26 AM CDT): -Patient bit by her cat, completed augmentin 10 days, started on doxycycline by her PCP without improvement -Wound with eschar and necrotic-appearing tissue; surrounding cellulitis - I discussed with [facility] and they will likely perform bedside debridement -F/u cultures if sent during debridement -continue antibiotics for now -check vanc trough prior to 4th dose Cellulitis 10/07/2021 Class 3 severe obesity in adult 10/07/2021 Assessment & Plan (10/09/2021 10:54 AM CDT): -Air Brush Artist -encourage diet/exercise Assessment & Plan (10/08/2021 10:27 AM CDT): -Air Brush Artist -encourage diet/exercise Surgical follow-up care 09/17/2013 Acne 09/04/2013 Rash 09/04/2013 Social History Tobacco Use Types Packs/Day Years [...] on file Legal Sex Female 5:11 AM TOURIST GUIDE Gender Identity Not on file Sexual Orientation Not on file Last Filed Vital Signs Vital Sign Reading Time Taken Comments Blood Pressure 131/88 12/15/2021 12:35 PM CDT Pulse 77 12/15/2021 12:49 PM CDT Temperature 36.6 ??C (97.9 ??F) 12/15/2021 9:03 AM CD T Respiratory Rate 27 12/15/2021 12:49 PM CDT Oxygen Saturation 95% 12/15/2021 12:49 PM CDT Inhaled Oxygen Concentration - - Weight 117.9 kg (260 lb) 12/15/2021 9:03 AM CDT Height 170.2 cm (5' 7 ) 12/15/2021 9:03 AM CDT Body Mass Index 40.72 12/15/2021 9:03 AM CDT Plan of Treatment Not on file Insurance [employer] PPO POS HE[employer]LINK PPO POS HE[employer]LINK PPO POS Advance Directives For more information, please contact: [phone] * Full Code (Latest Code Status on File) Date Activated Date Inactivated Comments 10/07/2021 12:36 PM 10/09/2021 5:43 PM Care Teams Medical Radiation Dosimetrist Relationship Specialty Start Date End Date Janiya Trotter NP [address] [place] [address] PCP - General Internal Medicine 10/07/21
--- OUTSIDE RECORDS SUMMARY | 2024-05-04 17:07 | XMS_ITS | Encounter Summary ---
Author Organization [facility] Address [address] [place] [address] Care Team Providers Care Delicatessen Department Manager Name Role Phone Unavailable Primary Care Provider Unavailabl e Encounter Details Date Type Department Care Team (Late st Contact Info) Description 05/10/2021 Lab Requisition [facility] [place] [facility] Community Testing [facility] [address] [place] [address] Raimundo Castaneda MD [address] [place] [address] [address] [place], [place] [id number] Social History Tobacco Use Types Packs/Day Years Used Date Smoking Tobacco: Never Assessed Comments Unknown Sex and Gender Information Value Date Recorded Sex Assigned at Not on file Legal Sex Female 8:31 AM CHINESE MEDICINE PRACTITIONER Gender Identity Not on file Sexual Orientation Not on file documented as of this encounter Plan of Treatment Not on file documented as of this encounter Procedures Procedure Name Priority Date/Time Associated Diagnosis Comments SARS-COV-2 PCR [facility] ONLY Routine 05/10/2021 8:50 AM CHINESE MEDICINE PRACTITIONER documented in this encounter Visit Diagnoses Not on filedocumented in this encounter
--- OUTSIDE RECORDS SUMMARY | 2024-05-04 17:07 | XMS_ITS | Encounter Summary ---
Author Organization [facility] Address [address] [place] [address] Care Team Providers Care Art Department Head Name Role Phone Unavailable Primary Care Provider Unavailabl e Encounter Details Date Type Department Care Team (Late st Contact Info) Description 05/10/2021 8:45 AM TRUCK PACKER Rapid Evaluation [place] [facility] Community Testing [address] [address] Social History Tobacco Use Types Packs/Day Years Used Date Smoking Tobacco: Never Assessed Comments Unknown Sex and Gender Information Value Date Recorded Sex Assigned at Not on file Legal Sex Female 8:31 AM TRUCK PACKER Gender Identity Not on file Sexual Orientation Not on file documented as of this encounter Plan of Treatment Not on file documented as of this encounter Visit Diagnoses Not on filedocumented in this encounter
--- OUTSIDE RECORDS SUMMARY | 2024-05-04 17:07 | XMS_ITS | Encounter Summary ---
Author Organization [facility] Care Team Providers Care Retail Sales Specialist Name Role Phone Unavailable Primary Care Provider Unavailabl e Encounter Details Date Type Department Care Team (Late st Contact Info) Description 08/13/2013 - 08/13/2013 11:59 PM CDT Hospital Encounter [facility] Octavio Chambers MD [address] [place] [address] Family history of ischemic heart disease Social History Tobacco Use Types Packs/Day Years Used Date Smoking Tobacco: Never Assessed Comments Unknown Sex and Gender Information Value Date Recorded Sex Assigned at Not on file 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
--- OUTSIDE RECORDS SUMMARY | 2024-05-04 17:07 | XMS_ITS | Clinical Summary ---
Author Organization [facility] Address [address] [place] [id number] Care Team Providers Care Foot Tender Name Role Phone Janiya Trotter NP Primary Care Provider +1- [phone] Allergies No known active allergies Medications collagenase [...] Assessment & Plan (10/09/2021 10:54 AM CDT): -Fuel Distribution System Operator -encourage diet/exercise Assessment & Plan (10/08/2021 10:27 AM CDT): -Fuel Distribution System Operator -encourage diet/exercise Surgical follow-up care 09/17/2013 Acne 09/04/2013 Rash 09/04/2013 Medical History Medical History Date Comments Asthma Family History Medical History Relation Name Comments Heart attack Mother Hypertension Other Family history of hypertension - (Added by TW Conv) Relation Name Status Comments Mother Other Social History Tobacco Use Types Packs/Day Years [...] on file Legal Sex Female 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 Gender Identity Not on file Sexual Orientation Not on file Obstetrics History Last Filed Vital Signs Vital Sign Reading [...] 12/15/2021 9:03 AM CDT Plan of Treatment Health Maintenance Due Date Last Done Comments Breast Cancer Screening-Mammogram 1965 Cervical Cancer Screening 1965 Colon Cancer Screening-Colonoscopy 1965 Depression Screening 1965 Hepatitis C Screening 1965 DTaP/Tdap/Td Vaccine (1 - Tdap) 09/10/1978 Hepatitis B Screening 09/10/1985 Regular Well Visit/Exam 18-64 09/10/1985 Zoster Vaccine (1 of 2) 09/10/2017 Influenza Vaccine (#1) 2023 05/11/2020 Pneumococcal vaccine <65 Aged Out No longer eligible based on patient's age to complete this topic Insurance [facility] [employer] PPO POS HE[employer] PPO POS HE[employer] PPO POS Advance Directives For more information, please contact: [phone] * Full Code (Latest Code Status on File) Date Activated Date Inactivated Comments 10/07/2021 12:36 PM 10/09/2021 5:43 PM Care Teams Foot Tender Relationship Specialty Start Date End Date Janiya Trotter NP [address] [place] [address] PCP - General Internal Medicine 10/07/21
--- OUTSIDE RECORDS SUMMARY | 2024-05-04 17:07 | XMS_ITS | Clinical Summary ---
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 Gender Identity Not on file Sexual Orientation Not on file Plan of Treatment Health Maintenance Due Date Last Done Comments Hepatitis C Virus (HCV) Screening 1965 TdaP Immunization 1965 Hepatitis B Immunization (1 of 3 - 19+ 3-dose series) 09/10/1986 Pap Smear 09/10/1988 Cervical Cancer Screening (CCS) 09/10/1997 HPV/Cotest 09/10/1997 Colonoscopy 09/10/2012 Colorectal Cancer Screening 09/10/2012 Cologuard 09/10/2017 Immunochemical Fecal Occult Blood 09/10/2017 Mammogram 09/10/2017 Pneumococcal Immunization (5 0+ years) (1 of 1 - PCV) 09/10/2017 Zoster Immunization (1 of 2) 09/10/2017 Influenza Immunization (#1) 2023 05/11/2020 SARS-COV-2 Immunization (3 - season) 2023 04/30/2021, 06/28/2020 Respiratory Syncytial Virus (RSV) Immunization (Adult) (1 - 1-dose 75+ series) 09/10/2042 Meningococcal Immunization (ACWY) Aged Out No longer eligible b ased on patient's age to complete this topic Pneumococcal Immunization Combined Aged Out No longer eligible b ased on patient's age to complete this topic Rotavirus Immunization Aged Out No lo nger eligible based on patient's age to complete this topic
--- OUTSIDE RECORDS SUMMARY | 2024-05-04 17:07 | XMS_ITS | Encounter Summary ---
Author Organization [facility] Address [address] [place] [address] Phone Care Team Providers Care Feed Adviser Name Role Phone Jesika Meza MD Primary Care Provider [phone]- [phone] Reason for Visit * Reason Comments Skin Exam SKIN LESION ON RT LO WER LEG Encounter Details Date Type Department Care Team (Late st Contact Info) Description 08/31/2020 2:30 PM CDT Office Visit [facility] [address] [facility] [address] [place] [address] Davide Antonio MD [address] [place] [address] [address] [place], [place] [id number] Necrobiosis lipoidica (Primary Dx); Solar lentiginosis Social History Tobacco Use Types Packs/Day Years Used Date Smoking Tobacco: Former Comments Unknown Sex and Gender Information Value Date Recorded Sex Assigned at Not on file 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 [id number] CC: Rash follow up HPI: Shantel Del Real is a 54 y.o. female with biopsy proven NLD who presents for follow up. Last see 08/2013, biopsy of rash on R bonilla consistent with NLD. Injected with ILK. Patient notes that the lesion cleared up with injection, but that it recurred. Also has a new spot at R lateral ankleoverlying a metal plate in her ankle. Both spots are very itchy. Not treating with topicals. MEDICATIONS/ALLERGIES/FAMILY HX/SOCIAL HX: Reviewed in chart ROS: No fevers, oral lesions, genital lesions, or lymphadenopathy. Otherwise, per HPI. PHYSICAL EXAM: GENERAL: Appears well. No acute distress. ORIENTATION: Alert and oriented x3. MOOD/AFFECT: Normal affect. Skin exam: Inspected the Scalp/Hair, Head/Face, Conjunctivae/Lids, Oropharynx, Lips, Neck, R. Upper Extremity,L. Upper Extremity, Upper Chest, Breast, Abdomen, Back, R. Lower Extremity and L. Lower Extremity Examination normal with the following exceptions: ??? Smooth red brown arcuate plaque at R bonilla ??? Red brown plaque at R lateral ankle with mild scale ??? Horan, regular macules at chest, back, arms, legs ASSESSMENT AND PLAN: 1. Necrobiosis lipoidica Biopsy proven. Improved with ILK in the past. ?? ILK to superior lesion today, see note below ?? Start clobetasol ointment BID to AA R bonilla. ?? Reviewed side effects of topical corticosteroids including atrophy, striae and dyschromia. ?? Call for return visit if desiring repeat injection, discussed waiting at least 2 months ?? Can consider injection to lower plaque if desired, discussed risk of infection in the setting ofhardware in the area. 2. Solar lentigines ??? No clinically concerning lesions on exam today ??? Continue photoprotection with SPF 30+ qday ??? Monthly self-skin exams and regular MD skin exam. PROCEDURE: Intralesional Steroid Injection Verbal consent obtained Risks of hypopigmentation and atrophy reviewed DIAGNOSIS: NLD LOCATION: R bonilla Prep: EtOH MEDICATION: Kenalog 10mg vial [facility] [address]-54 STRENGTH: 10 mg/ml AMOUNT ADMINISTERED: 0.8 ml AMOUNT DISCARDED: 4.2 ml COMPLICATIONS: None UNIVERSAL PROTOCOL: Time-Out performed. RTC: PRN. Patient was instructed to return sooner should s/he develop any new, changing and/or worsening lesions, side effects of any recommended treatments, or as needed. Sandra Kawn MD PhD Dermatology, PGY-3 08/31/20, 2:49 PM Cosigned by Davide Antonio MD at 09/04/2020 10:31 AM CDT Associated attestation - Davide Antonio MD - 09/04/2020 10:31 AM CDT ATTESTATION: I have seen and examined the patient. I agree with the findings and plan of care as documented in the resident's note. I was present for the entire procedure. Davide Antonio MD documented in this encounter Plan of Treatment Not on file documented as of this encounter Visit Diagnoses Diagnosis Necrobiosis lipoidica- Primary Degenerative skin disorder Solar lentiginosis documented in this encounter Care Teams Feed Adviser Relationship Specialty Start Date End Date Jesika Meza MD PCP - General Family Medicine 07/30/20 02/24/21 documented as of this encounter
--- OUTSIDE RECORDS SUMMARY | 2024-05-04 17:07 | XMS_ITS | Encounter Summary ---
Author Organization [facility] Healthcare Address [address] [place] [address] Care Team Providers Care City Controller Name Role Phone Jesika Meza MD Primary Care Provider [phone] Reason for Visit * Reason Comments Shortness of Breath Encounter Details Date Type Department Care Team (Late st Contact Info) Description 12/21/2020 10:43 AM CDT - 12/21/2020 1:50 PM CDT Emergency [facility] Emergency Department [address] [place] [id number] Moderate persistent asthma with exacerbation (Primary Dx); Acute bronchitis, unspecified organism Discharge Disposition: Discharge to home or self care Social History Tobacco Use Types Packs/Day Years Used Date Smoking Tobacco: Former Comments No Sex and Gender Information Value Date Recorded Sex Assigned at Not on file Legal Sex Female 5:11 AM [employer] Gender Identity Not on file Sexual Orientation Not on file documented as of this encounter Last Filed Vital Signs Vital Sign Reading Time Taken Comments Blood Pressure 140/87 12/21/2020 10:26 AM CDT Pulse 91 12/21/2020 11:20 AM CDT Temperature 36.8 ??C (98.2 ??F) 12/21/2020 10:26 AM C DT Respiratory Rate 18 12/21/2020 10:26 AM CDT Oxygen Saturation 95% 12/21/2020 11:20 AM CDT Inhaled Oxygen Concentration - - Weight - - Height - - Body Mass Index - - documented in this encounter Discharge Diagnoses Diagnosis Moderate persistent asthma with (acute) exacerbation - MODERATE PERSISTENT ASTHMA WITH (ACUTE) EXACERBATION Acute bronchitis, unspecified - ACUTE BRONCHITIS, UNSPECIFIED Contact with and (suspected) exposure to covid-19 - CONTACT WITH AND (SUSPECTED) EXPOSURE TO COVID-19 Personal history of nicotine dependence - PERSONAL HISTORY OF NICOTINE DEPENDENCE documented in this encounter Discharge Instructions * Discharge Instructions* John Lane PA - 12/21/2020 1:42 PM CDT Please return to the nearest ER immediately if you have any worsening fevers, chills, chest pain, shortness of breath as you may have an emergency medical condition necessitating additional management and possible inpatient admission. Please follow up with your primary care physician as above and have your primary care physician review non-acute laboratory or imaging findings for outpatient management as included in your dischargepaperwork. . Please call your primary care physician as above right after you are discharged to apprise them of your emergency department visit today and to make an appointment. Please call us if you have any questions or if you have trouble obtaining the follow up above within the prescribed timeframe: [facility] ER - [phone] [facility] ER - [phone] [facility] ER - [phone] You may receive a call from one of our facilities to see how you are doing over the next week or ifyou have any updated results (lab or imaging) and it will likely show up as a [phone]) area code number you may not recognize. Please ensure you are able to be contacted. * Attachments The following attachments cannot be sent through Care Everywhere. * Acute Bronchitis (AfterCare(R) Instructions(ER/ED)) (Greek) documented in this encounter Medications at Time of Discharge albuterol 5 mg/mL nebulizer solutionIndicati ons:Acute Asthma Attack Take 0.5 mL (2.5 mg total) by nebulization every 6 (six) hours as needed for wheezing 20 mL 12/21/2020 2 clobetasoL (TEMOVATE) 0.05 % ointmentIndicati ons:Necrobiosis lipoidica Apply thin layer to AA R bonilla BID PRN rash 60 g 3 08/31/2020 2 predniSONE (DELTASONE) 10 mg tablet Take 6 tablets oral daily for 3 days then 5 tablets daily for 3 days 4 tablets daily for 3 days then 3 tablets daily for 3 days then 2 tablets daily for 1 day then 1 tablet daily for 1 day then stop. 57 tablet 12/21/2020 2 documented as of this encounter Ordered Prescriptions Prescription Sig Dispense Quantity Refills Last Filled Start Date End Date albuterol 5 mg/mL nebulizer solutionIndicatio ns:Acute Asthma Attack Take 0.5 mL (2.5 mg total) by nebulization every 6 (six) hours as needed for wheezing 20 mL 12/21/2020 2 predniSONE (DELTASONE) 10 mg tablet Take 6 tablets oral daily for 3 days then 5 tablets daily for 3 days 4 tablets daily for 3 days then 3 tablets daily for 3 days then 2 tablets daily for 1 day then 1 tablet daily for 1 day then stop. 57 tablet 12/21/2020 2 documented in this encounter Discharge Disposition Disposition Code Departure Means Destination Discharge to home or self care documented in this encounter ED Notes * John Lane PA - 12/21/2020 10:45 AM CDT Visit Date: 12/21/20 Triage Time: 1043 Age: 55 y.o. Service: Emergency Medicine ER Provider: CHRISTIAN Lund Patient Name: Shantel Del Real : 1965 Gender: female PCP: Jesika Meza MD Code Status: No Order Allergies: No Known Allergies Chief Complaint Patient presents with ??? Shortness of Breath Triage Note: Pt in with c/o SOB and chest wall pain from coughing. Pt has gone to urgent care twice and diagnosed with bronchitis and given steroids and antibiotics. Pt reports she is gasping for air, speaking infull sentences on phone. VSS. Pt reports nebulizer at home has not been helpful. Pt has had two negative covid tests. Pt reports going to urgent care yesterday and had a cxr but does not remember theresults. Nursing Notes: No notes on file HISTORY OF PRESENT ILLNESS 55 y/o Female h/o Asthma p/w shortness of breath and wheezing x ~1 month, worsening over the past several days. States she was initially seen at an Urgent care on November 16 with sinus issues and dizziness where she was diagnosed with sinusitis and started on Augmentin. Patient states the sinus issues improved while on the augmentin, however, she developed cough, shortness of breath, and wheezing shortly thereafter prompting her to go back to the urgent care two after her first visit where she was diagnosed with acute bronchitis and placed on albuterol, steroids, and a z-pack. Patient states her shortness of breath did improve while on the steroids, but has worsened over the last few days since being complete with the medications. 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 She states the smoke is what initially worsened her symptoms, but she cannot avoid it because she has to work. Patient does endorse a long history of smoking (quit 13 years ago), and grew up in a household that smoked. She does endorse mid chest pain that is dull in nature, and sometimes pleuritic, only when taking a deep breath or coughing. She is also reporting significant dyspnea on exertion. No noticeable lower extremity edema or PNA. Denies f/c, loss taste/smell, covid vaccination, known sick contact, n/v, abdominal pain, dysuria, hematuria. Reviewed past medical, family, and social history below. Patient History: Patient Active Problem List Diagnosis Date Noted ??? Surgical follow-up care 09/17/2013 ??? Acne 09/04/2013 ??? Rash 09/04/2013 History reviewed. No pertinent past medical history. History reviewed. No pertinent surgical history. Family History Problem Relation Age of Onset ??? Hypertension Other Family history of hypertension - (Added by TW Carina) Social History Tobacco Use ??? Smoking status: Former Smoker Substance Use Topics ??? Alcohol use: Not on file ??? Drug use: Not on file Social History Social History Narrative ??? Not on file SUBJECTIVE Review of Systems Constitutional: Negative for chills and fever. HENT: Negative for congestion, sore throat and trouble swallowing. Eyes: Negative for pain and redness. Respiratory: Positive for cough, chest tightness, shortness of breath and wheezing. Cardiovascular: Positive for chest pain (intermittent). Negative for palpitations and leg swelling. Gastrointestinal: Negative for abdominal pain, nausea and vomiting. Endocrine: Negative for polydipsia and polyuria. Genitourinary: Negative for dysuria, flank pain and hematuria. Musculoskeletal: Negative for arthralgias and gait problem. Skin: Negative for rash and wound. Neurological: Negative for dizziness, weakness, light-headedness and headaches. Hematological: Does not bruise/bleed easily. Psychiatric/Behavioral: Negative for agitation, confusion, self-injury and suicidal ideas. OBJECTIVE ED Triage Vitals [12/21/20 1026] Temp Pulse Resp BP SpO2 36.8 ??C (98.2 ??F) 99 18 140/87 96 % Temp src Heart Rate Source Patient Position BP Location FiO2 (%) Temporal -- -- -- -- Physical Exam Vitals and nursing note reviewed. Constitutional: General: She is not in acute distress. Appearance: She is well-developed. HENT: Head: Normocephalic and atraumatic. Eyes: Conjunctiva/sclera: Conjunctivae normal. Cardiovascular: Rate and Rhythm: Normal rate and regular rhythm. Pulses: Normal pulses. Heart sounds: Normal heart sounds. No murmur heard. Pulmonary: Effort: Pulmonary effort is normal. No respiratory distress. Breath sounds: Decreased breath sounds and wheezing (generalized) present. Comments: Poor air movement. Not in respiratory distress. Does appear to exhibit mild conversational shortness of breath. Abdominal: General: Bowel sounds are normal. There is no distension. Palpations: Abdomen is soft. Tenderness: There is no abdominal tenderness. There is no guarding. Musculoskeletal: Cervical back: Neck supple. Skin: General: Skin is warm and dry. Neurological: Mental Status: She is alert and oriented to person, place, and time. Labs Ordered Labs Reviewed CBC WITH AUTO DIFFERENTIAL - Abnormal Result Value WBC 6.1 Hgb 14.4 Hct 44.7 Plt 273 MPV 10.0 RBC 4.99 MCV 89.6 MCH 28.9 MCHC 32.2 (*) RDW CV 13.4 RDW SD 44.0 NRBC abs 0.00 DIFFERENTIAL AUTO - Abnormal Neutrophil abs 2.9 Imm gran abs 0.0 Lymphocyte abs 2.0 Monocyte abs 0.5 Eosinophil abs 0.6 (*) Basophil abs 0.0 Neutrophil pct 47.8 Imm gran pct 0.3 Lymphocyte pct 33.5 Monocyte pct 7.7 Eosinophil pct 10.0 Basophil pct 0.7 COVID-19 CORONAVIRUS RNA COMPREHENSIVE METABOLIC PANEL TROPONIN I HIGH-SENSITIVITY Images Ordered XR Chest Pa Lateral 2 Vw Final Result No priors. No specific evidence of pneumonia or pulmonary edema. No pneumothorax or pleural effusion. The cardiomediastinal silhouette is normal. Electronically signed by: Jaci Malone M.D. ASSESSMENT & CARE Sequential Vitals Patient Vitals for the past 24 hrs: BP Temp Temp src Pulse Resp SpO2 12/21/20 1026 140/87 36.8 ??C (98.2 ??F) Temporal 99 18 96 % ED Course ED Course as of Dec 213 Time: 12/21 1211 Comment: Patient states she is feeling better after the initial breathing treatment, but is still wheezing. Improved air movement, however, still with diffuse wheezing, and rhonchi noted now. Will give bolus of fluids and another breathing treatment. By: John Lane PA Time: 12/21 1335 Comment: Performed walk test around the observation pod. Patient became short of breath, but was able to maintain an oxygen saturation of 95-96% on RA. Patient states overall she feels much better after that second breathing treatment even though she is still wheezing. Air movement and wheezing improved on exam. Patient would prefer to be discharged home instead of coming into the hospital at this time given the concern of increased COVID patients in the hospital so through shared decision making I will discharge the patient home with steroid taper, nebulizer solution, and recommend close 3-4day follow up with her PCP with strong return precautions. Will also give a work excuse for the remainder of this week while the patient recovers from this flare. Patient is happy and agrees with theplan. By: John Lane PA Medications Given in the ED Medical Decision Making MDM Number of Diagnoses or Management Options Acute bronchitis, unspecified organism Moderate persistent asthma with exacerbation Diagnosis management comments: DDx: 1. Asthma exacerbation 2. Bronchitis subacute vs acute 3. Pneumonia 4. Less likely heart failure 5. Less likely ACS 6. Unlikely PE Plan: Cardiac workup, cxr, covid Nebulizer, and steroid Dispo pending clinical course and work up. Given history and exam I suspect asthma vs bronchitis flair, then pneumonia. Clinically she does not appear to fluid overloaded though she does have 1+ pitting edema, patient does not notice any new swelling. EKG: NSR w/o acute st/t wave changes c/f ischemia. Troponin negative x 1. DISPOSITION Disposition Decision Discharge Outpatient Medications Prescribed ED Prescriptions Medication Sig Dispense Start Date End Date Auth. Provider predniSONE (DELTASONE) 10 mg tablet Take 6 tablets oral daily for 3 days then 5 tablets daily for 3 days 4 tablets daily for 3 days then 3 tablets daily for 3 days then 2 tablets daily for 1 day then 1 tablet daily for 1 day then stop. 57 tablet 12/21/[address] PA albuterol 5 mg/mL nebulizer solution Take 0.5 mL (2.5 mg total) by nebulization every 6 (six) hoursas needed for wheezing 20 mL 12/21/2020 12/21/[address] PA Final Diagnosis and Plan Final diagnoses: Moderate persistent asthma with exacerbation Acute bronchitis, unspecified organism Discharge Instructions Discharge Instructions Please return to the nearest ER immediately if you have any worsening fevers, chills, chest pain, shortness of breath as you may have an emergency medical condition necessitating additional management and possible inpatient admission. Please follow up with your primary care physician as above and have your primary care physician review non-acute laboratory or imaging findings for outpatient management as included in your dischargepaperwork. . Please call your primary care physician as above right after you are discharged to apprise them of your emergency department visit today and to make an appointment. Please call us if you have any questions or if you have trouble obtaining the follow up above within the prescribed timeframe: [facility] ER - [phone] [facility] ER - [phone] [facility] ER - [phone] You may receive a call from one of our facilities to see how you are doing over the next week or ifyou have any updated results (lab or imaging) and it will likely show up as a [phone]) area code number you may not recognize. Please ensure you are able to be contacted. Patient Instructed to Follow Up With [facility] Emergency Department [address] [facility] [phone] If symptoms worsen Jesika Meza MD [address] [facility] [address] In 3 days Condition on Departure Vitals: 12/21/20 1026 BP: 140/87 Pulse: 99 Resp: 18 Temp: 36.8 ??C (98.2 ??F) SpO2: 96% John Lane MS, PA-C Emergency Services, [facility] John Lane PA 12/21/[address] PA 12/21/20 1347 * Rosalva Orr RN - 12/21/2020 10:43 AM CDT Bed: [facility] Expected date: Expected time: Means of arrival: Car Comments: Rosalva Orr RN 12/21/20 1043 * Lisa Salmon RN - 12/21/2020 10:27 AM CDT Pt in with c/o SOB and chest wall pain from coughing. Pt has gone to urgent care twice and diagnosed with bronchitis and given steroids and antibiotics. Pt reports she is gasping for air, speaking infull sentences on phone. VSS. Pt reports nebulizer at home has not been helpful. Pt has had two negative covid tests. Pt reports going to urgent care yesterday and had a cxr but does not remember theresults. documented in this encounter Miscellaneous Notes * ED Procedure Note - Ebony Anne MD - 12/21/2020 10:42 AM CDT Associated Order(s): ECG 12 lead Procedure ECG 12 lead Date/Time: 12/21/2020 10:42 AM Performed by: Manny Harris MD Authorized by: John Laura MD Rate: ECG rate: 98 ECG rate assessment: normal Rhythm: Rhythm: sinus rhythm Ectopy: Ectopy: PAC QRS: QRS axis: Normal QRS intervals: Normal Conduction: Conduction: normal ST segments: ST segments: Normal T waves: T waves: normal Previous ECG: Previous ECG: Unavailable Interpretation: Interpretation: non-specific Recommended Follow-up: Recommended follow up: further workup in the ED reviewed the EKG and agree with the fellow's interpretation unless otherwise noted Manny Harris MD 12/21/20 1043 Ebony Anne MD 12/21/20 1231 documented in this encounter Plan of Treatment Not on file documented as of this encounter Procedures Procedure Name Priority Date/Time Associated Diagnosis Comments XR CHEST PA LATERAL 2 VIEWS ED 12/21/2020 11:30 AM CDT TROPONIN I HIGH-SENSITIVITY Routine 12/21/2020 11:17 AM CDT COVID-19 CORONAVIRUS RNA Routine 12/21/2020 11:17 AM CDT EGFR STAT 12/21/2020 11:17 AM CDT DIFFERENTIAL AUTO STAT 12/21/2020 11: 17 AM CDT CBC WITH AUTO DIFFERENTIAL STAT 12/21/2020 11:17 AM CDT COMPREHENSIVE METABOLIC PANEL STAT 12/21/2020 11:17 AM CDT ECG 12-LEAD STAT 12/21/2020 10:42 AM CDT documented in this encounter Results * XR Chest Pa Lateral 2 Vw (12/21/2020 11:30 AM CDT) Anatomical Region Laterality Modality Body, Chest N/A Computed Radiogr aphy 12/21/2020 11:3 7 AM CDT Impressions 12/21/2020 11:37 AM CDT No priors. No specific evidence of pneumonia or pulmonary edema. No pneumothorax or pleural effusion. The cardiomediastinal silhouette is normal. Electronically signed by: Jaci Malone M.D. Narrative 12/21/2020 11:37 AM CDT EXAMINATION: 2 view chest radiograph Procedure Note Jaci Malone MD - 12/21/2020 EXAMINATION: 2 view chest radiograph IMPRESSION: No priors. No specific evidence of pneumonia or pulmonary edema. No pneumothorax or pleural effusion. The cardiomediastinal silhouette is normal. Electronically signed by: Jaci Malone M.D. Josephine Mcfadden MD IMG XR PROCEDURES Final Res ult * (ABNORMAL) eGFR (12/21/2020 11:17 AM CDT) eGFR 65(L) 90 - 130 mL/min/1.7 3 m2 [facility] Comment: Interpretive Data Reference Interval Normal ?>/= 90 mL/min/1.73m2 Mildly decreased* ? 60 - 89 mL/min/1.73m2 Mildly to moderately decreased ?45 - 59 mL/min/1.73m2 Moderately to severely decreased ??30 - 44 mL/min/1.73m2 Severely decreased ?15 - 29 mL/min/1.73m2 Kidney Failure ?< 15 ??mL/min/1.73m2 *Relative to young adult level Estimated glomerular filtration rate is determined by the CKD-EPI equation recommended by the National Kidney Foundation (KDIGO 2012 Clinical Practice Guideline for the Evaluation and Management of Chronic Kidney Disease. Kidney Intnl Suppl Apr 2012;3:1). The CKD-EPI equation should not be used for patients with unstable renal function and has not been validated in children and those over 70. Current interpretive data was last reviewed 2020 Blood 12/21/2020 11:1 7 AM CDT 12/21/2020 11:29 AM CDT John GONZALES LAB BLOOD ORDERABLES Juliana mercado Result [facility] Department [place] [address] * (ABNORMAL) Differential, auto (12/21/2020 11:17 AM CDT) Neutrophil abs 2.9 1.7 - 6.5 K/cumm [facility] Imm gran abs 0.0 0.0 - 0.1 K/cumm [facility] Lymphocyte abs 2.0 0.8 - 3.3 K/cumm [facility] Monocyte abs 0.5 0.2 - 0.8 K/cumm [facility] Eosinophil abs 0.6(H) 0.0 - 0.5 K/cumm [facility] Basophil abs 0.0 0.0 - 0.1 K/cumm [facility] Neutrophil pct 47.8 % [facility] Comment: Interpretive Data Percent cell count reference ranges are not reported, since discordance with absolute values may lead to misinterpretation of CBC data. Current Interpretive Data was last revised on 2017. Imm gran pct 0.3 % [facility] Comment: Interpretive Data Percent cell count reference ranges are not reported, since discordance with absolute values may lead to misinterpretation of CBC data. Current Interpretive Data was last revised on 2017. Lymphocyte pct 33.5 % [facility] Comment: Interpretive Data Percent cell count reference ranges are not reported, since discordance with absolute values may lead to misinterpretation of CBC data. Current Interpretive Data was last revised on 2017. Monocyte pct 7.7 % [facility] Comment: Interpretive Data Percent cell count reference ranges are not reported, since discordance with absolute values may lead to misinterpretation of CBC data. Current Interpretive Data was last revised on 2017. Eosinophil pct 10.0 % [facility] Comment: Interpretive Data Percent cell count reference ranges are not reported, since discordance with absolute values may lead to misinterpretation of CBC data. Current Interpretive Data was last revised on 2017. Basophil pct 0.7 % [facility] Comment: Interpretive Data Percent cell count reference ranges are not reported, since discordance with absolute values may lead to misinterpretation of CBC data. Current Interpretive Data was last revised on 2017. Blood 12/21/2020 11:1 7 AM CDT 12/21/2020 11:30 AM CDT John GONZALES LAB BLOOD ORDERABLES Juliana mercado Result [facility] Department [place] [address] * COVID-19 Coronavirus RNA Nasopharyngeal (12/21/2020 11:17 AM CDT) COVID-19 RNA Negative Negative [facility] Comment: Interpretive data: Synonyms for this test include: PCR and NAAT . ??This test is performed using the [employer] Xpert Xpress assay. This is a real-time RT-PCR test intended for the qualitative detection of nucleic acid from the SARS-CoV-2. This assay has been reviewed by the FDA for Emergency Use Authorization (EUA). The performance characteristics have been verified by the performing laboratory. Results must be considered in the clinical context and a negative result does not rule out infection. Interpretive data last revised May 27, 2020. Employeed in healthcare? No [facility] status? No [facility] Group care resident? No [facility] Hospitalized? No [facility] Is patient in ICU? No [facility] Symptomatic as defined by CDC? Yes [facility] Nasopharyngeal 12/21/2020 11 :17 AM CDT 12/21/2020 11:32 AM CDT Narrative [facility] - 12/21/2020 12:45 PM CDT What is the reason for testing?->Bed placement or semi-private room Date of Symptom Onset->11/16/20 John GONZALES LAB MICROBIOLOGY - GENERA L ORDERABLES Final Result Performing Organization Address [facility] Co de Phone Number [facility] Department [place] [address] * Troponin I high-sensitivity (12/21/2020 11:17 AM CDT) Pathologist [facility] Trop I hs 8 <=17 ng/L [facility] Comment: Interpretive Data For further hscTnI resources including the diagnostic algorithm and an aid in interpretation, copy and paste this link: [email or web address] Current Interpretive Data last revised 2019. Blood 12/21/2020 11:1 7 AM CDT 12/21/2020 11:30 AM CDT John GONZALES LAB BLOOD ORDERABLES Juliana l Result Performing Organization Address [facility] Co de Phone Number [facility] Department [place] [address] * Comprehensive metabolic panel (12/21/2020 11:17 AM CDT) Sodium 141 135 - 145 mmol/L [facility] Potassium, pl 4.5 3.3 - 4.9 mmol/L [facility] Chloride 106 97 - 110 mmol/L [facility] CO2 31 22 - 32 mmol/L [facility] Anion gap 4 2 - 15 mmol/L [facility] BUN 15 8 - 25 mg/dL [facility] Creatinine 0.99 0.60 - 1.10 mg/dL [facility] Glucose 98 70 - 199 mg/dL [facility] Comment: Interpretive Data Fasting glucose >/= 126 mg/dl is diagnostic for diabetes. ?? Fasting is defined as no caloric intake for at least 8 hours. Fasting glucose between 100 mg/dl to 125 mg/dl is diagnostic of prediabetes. In a patient with classic symptoms of hyperglycemia or hyperglycemic crisis, a random glucose >/= 200 mg/dl is diagnostic for diabetes. In the absence of unequivocal hyperglycemia, results should be confirmed by repeat testing. The classification and Diagnosis of Diabetes Diabetes Care 2017;40 (Suppl. 1):S11. Current interpretive data was last revised 2017. Calcium 9.0 8.5 - 10.3 mg/dL [facility] Bilirubin, total 0.4 0.1 - 1.2 mg/dL [facility] Protein, pl 6.9 6.5 - 8.5 g/dL [facility] Albumin 4.1 3.5 - 5.0 g/dL [facility] Alk phos 59 40 - 130 Units/L [facility] ALT 21 7 - 45 Units/L [facility] AST 24 10 - 45 Units/L [facility] Blood 12/21/2020 11:1 7 AM CDT 12/21/2020 11:29 AM CDT John GONZALES LAB BLOOD ORDERABLES Juliana l Result [facility] Department [place] [address] * (ABNORMAL) CBC with auto differential (12/21/2020 11:17 AM CDT) Pathologist [facility] WBC 6.1 3.8 - 9.9 K/cumm [facility] Hgb 14.4 11.9 - 15.5 g/dL [facility] Hct 44.7 35.6 - 45.5 % [facility] Plt 273 150 - 400 K/cumm [facility] MPV 10.0 9.1 - 12.3 fL [facility] RBC 4.99 3.90 - 5.20 M/cumm [facility] MCV 89.6 81.3 - 96.4 fL [facility] MCH 28.9 27.1 - 33.3 pg [facility] MCHC 32.2(L) 32.3 - 35.7 g/dL [facility] RDW CV 13.4 11.1 - 14.9 % [facility] RDW SD 44.0 35.7 - 48.1 fL [facility] NRBC abs 0.00 0.00 - 0.01 K/cumm [facility] Blood 12/21/2020 11:1 7 AM CDT 12/21/2020 11:30 AM CDT John GONZALES LAB BLOOD ORDERABLES Juliana mercado Result Performing Organization Address City/State/[facility] Co de Phone Number [facility] Department [place] [address] * ECG 12-LEAD (12/21/2020 10:42 AM CDT) Narrative [facility] - 12/21/2020 10:42 AM CDT Ebony Anne MD ? 12/21/2020 12:31 PM ECG 12 lead Date/Time: 12/21/2020 10:42 AM Performed by: Manny Harris MD Authorized by: John Laura MD Rate: ??ECG rate: ??98 ??ECG rate assessment: normal ?? Rhythm: ??Rhythm: sinus rhythm ?? Ectopy: ??Ectopy: PAC ?? QRS: ??QRS axis: ??Normal ??QRS intervals: ??Normal Conduction: ??Conduction: normal ?? ST segments: ??ST segments: ??Normal T waves: ??T waves: normal ?? Previous ECG: ??Previous ECG: ??Unavailable Interpretation: ??Interpretation: non-specific ?? Recommended Follow-up: ??Recommended follow up: further workup in the ED ?? Procedure Note Ebony Anne MD - 12/21/2020 10:42 AM CDT Procedure ECG 12 lead Date/Time: 12/21/2020 10:42 AM Performed by: Manny Harris MD Authorized by: John Laura MD Rate: ECG rate: 98 ECG rate assessment: normal Rhythm: Rhythm: sinus rhythm Ectopy: Ectopy: PAC QRS: QRS axis: Normal QRS intervals: Normal Conduction: Conduction: normal ST segments: ST segments: Normal T waves: T waves: normal Previous ECG: Previous ECG: Unavailable Interpretation: Interpretation: non-specific Recommended Follow-up: Recommended follow up: further workup in the ED reviewed the EKG and agree with the fellow's interpretation unlessotherwise noted Manny Harris MD 12/21/20 1043 Ebony Anne MD 12/21/20 1231 Nik Laura MD ECG ORDERABLES Final R esult [facility] documented in this encounter Visit Diagnoses Diagnosis Moderate persistent asthma with exacerbation- Primary Unspecified asthma, with exacerbation Acute bronchitis, unspecified organism documented in this encounter Administered Medications Inactive Administered Medications - up to 3 most recent administrations Medication Order MAR Action Action Date Dose Rate Site albuterol 2.5 mg/0.5 mL nebulizer solution 5 mg 5 mg, nebulization, Once (emergency planning and response manager), On Sun12/21/20 at 1101, For 1 dose, Indications: COPD ExacerbationIndications:COPD Exacerbation Given 12/21/2020 11:07 AM CDT 5 mg albuterol 2.5 mg/0.5 mL nebulizer solution 5 mg 5 mg, nebulization, Once (emergency planning and response manager), On Sun12/21/20 at 1210, For 1 dose, Indications: COPD ExacerbationIndications:COPD Exacerbation Given 12/21/2020 12:24 PM CDT 5 mg ipratropium (ATROVENT) 0.02 % nebulizer solution 0.5 mg 0.5 mg, nebulization, Once (emergency planning and response manager), On Sun12/21/20 at 1101, For 1 dose, Indications: COPD ExacerbationIndications:COPD Exacerbation Given 12/21/2020 11:07 AM CDT 0.5 mg predniSONE (DELTASONE) tablet 60 mg 60 mg, oral, Once, On Sun12/21/20 at 1101, For 1 dose, Indications: COPD ExacerbationIndications:COPD Exacerbation Given 12/21/2020 11:06 AM CDT 60 mg sodium chloride 0.9% bolus 1,000 mL 1,000 mL, intravenous, at 1,000 mL/hr, Administer over 1 Hours, Once, On Sun12/21/20 at 1210, For 1 dose New Bag 12/21/2020 12:24 PM CDT 1,000 mL 1000 mL/hr documented in this encounter Active and Recently Administered Medications Times are shown in CDT. Scheduled Medication Order 12/19/2020 12/20/2020 12/21/2020 albuterol 2.5 mg/0.5 mL nebulizer solution 5 mg (COMPLETED) 5 mg, nebulization, Once (emergency planning and response manager), On Sun12/21/20 at 1101, For 1 dose, Indications: COPD Exacerbation 1107 (Given - Provid er: Melva Best RN) albuterol 2.5 mg/0.5 mL nebulizer solution 5 mg (COMPLETED) 5 mg, nebulization, Once (emergency planning and response manager), On Sun12/21/20 at 1210, For 1 dose, Indications: COPD Exacerbation 1224 (Given - Provid er: Melva Best RN) ipratropium (ATROVENT) 0.02 % nebulizer solution 0.5 mg (COMPLETED) 0.5 mg, nebulization, Once (emergency planning and response manager), On Sun12/21/20 at 1101, For 1 dose, Indications: COPD Exacerbation 1107 (Given - Provid er: Melva Best RN) predniSONE (DELTASONE) tablet 60 mg (COMPLETED) 60 mg, oral, Once, On Sun12/21/20 at 1101, For 1 dose, Indications: COPD Exacerbation 1106 (Given - Provid er: Melva Best RN) sodium chloride 0.9% bolus 1,000 mL (COMPLETED) 1,000 mL, intravenous, at 1,000 mL/hr, Administer over 1 Hours, Once, On Sun12/21/20 at 1210, For 1 dose 1224 (New Bag - Prov ider: Melva Best RN)1300 (Stopped - Provider: Melva Best RN) documented in this encounter Additional Health Concerns Infection Onset Date Last Indicated Resolved Time COVID: Suspected 12/21/2020 12/21/2020 12/21/2020 12:46 PM CDT documented as of this encounter Care Teams City Controller Relationship Specialty Start Date End Date Jesika Meza MD PCP - General Family Medicine 07/30/20 02/24/21 documented as of this encounter
--- OUTSIDE RECORDS SUMMARY | 2024-05-04 17:07 | XMS_ITS | Encounter Summary ---
Author Organization [facility] Healthcare Address [address] [place] [address] Care Team Providers Care Tight Cooper Name Role Phone Janiya Trotter NP Primary Care Provider [phone]- [phone] Reason for Visit * Reason Comments Animal Bite * Auth/Cert Specialty Diagnoses / Procedures Referred By Contac t Referred To Contact Diagnoses Cellulitis Animal bite Cat bite of left lower leg, initial encounter Procedures NA Referral ID Status Reason Start Date Expiration Date Visits Re quested Visits Authorized [id number] 1 1 Encounter Details Date Type Department Care Team (Late st Contact Info) Description 10/07/2021 4:45 AM CDT - 10/09/2021 1:42 PM CDT Emergency [facility] [address] [place] [address] Nahomy Figueroa MD [id number] [place] [address] Helena Anne MD [address] [place] [address] Aruna Fonseca MD [address] [place] [address] Patricia Newby MD [address] [place] [address] Cat bite of left lower leg, initial encounter (Primary Dx) Discharge Disposition: Discharge to home or self care Social History Tobacco Use Types Packs/Day Years Used Date Smoking Tobacco: Former AUDIT-C Answer Date Recorded Q1: How often [...] on file 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 Gender Identity Not on file Sexual Orientation Not on file documented as of this encounter Last Filed Vital Signs Vital Sign Reading Time Taken Comments Blood Pressure 112/76 10/09/2021 4:10 AM CDT Pulse 74 10/09/2021 4:10 AM CDT Temperature 36.6 ??C (97.88 ??F) 10/09/2021 4:10 AM C DT Respiratory Rate 18 10/09/2021 4:10 AM CDT Oxygen Saturation 99% 10/09/2021 4:10 AM CDT Inhaled Oxygen Concentration - - Weight 117.9 kg (260 lb) 10/06/2021 10:56 PM CDT Height 170.2 cm (5' 7 ) 10/06/2021 10:56 PM CDT Body Mass Index 40.72 10/06/2021 10:56 PM CDT documented in this encounter Discharge Summaries * Patricia Newby MD - 10/09/2021 11:11 AM CDT Inpatient Discharge Summary BRIEF OVERVIEW Admitting Provider: Helena Anne MD Discharge Provider: Patricia Newby MD Primary Care Physician at Discharge: Janiya Trotter GLASSWARE SELECTOR [phone] Admission Date: 10/07/2021 Discharge Date: 10/09/2021 Admission Location: [facility] Problems/Diagnoses: Principal Problem: Animal bite Active Problems: Cellulitis Class 3 severe obesity in adult (CMS/HCC) (HCC) Resolved Problems: No resolved hospital problems. DETAILS OF HOSPITAL STAY Presenting Problem/History of Present Illness: Patient is a 56yo F with no PMH who presents with a cat bite. She notes her cat bit her twice on the L calf two weeks ago. She has been to an Urgent Care and the hospital for this, and completed 10 days total of augmentin. She saw her PCP yesterday and started doxycycline. Patient says she thinks the wound actually looks slightly better, but has difficulty taking a look at her leg. She denies anyfevers or chills at home. Never had pus coming out of the wound, only blood. She notes the pain hasbeen severe especially when walking on it, and pain has remained unchanged over the past two weeks.Has been taking Vicodin 5-325 for the pain. ?? In the ED vitals stable, no leukocytosis. CRP and ESR are wnl. Xray of the leg with soft tissue swelling, no gas. She was started on ceftriaxone and flagyl and admitted. Hospital Course: Patient was admitted to 3500 and started on vancomycin, flagyl and ceftriaxone. ACCS was consulted and performed bedside debridement of the wound and provided wound care recommendations. ACCS has requested a follow-up appointment and the office will call the patient next week with the appointment. Plan to discharge on Bactrim (covers Pateurella) and Clinda x 7 days Active Issues Requiring Follow-up: L leg wound Operative Procedures Performed: Bedside debridement of L leg wound Discharge Details Physical Exam at Discharge: Discharge Condition: good Pulse: 74 Resp: 18 BP: 112/76 Temp: 36.6 ??C (97.88 ??F) Weight: 117.9 kg (260 lb) Pertinent Exam Findings at Discharge: Full code Discharge Disposition: Discharge to home or self care Code Status at Discharge: Full code Discharge Instructions: Activity Instructions Discharge activity: Resume normal activity Diet Instructions Adult Discharge Diet Diet Type: Return to previous diet Other Instructions Post-Discharge Dressing Care: Change daily. Cleanse wound with wound cleanser. Apply thin layer of Santyl to wound base. Cover with an ABD pad.Wrap leg with Kerlix and then with an ADRIANA bandage. Change daily and as needed. Change Dressing: Change daily. Special Instructions General surgery clinic will call you to schedule follow-up appointment Discharge Medications: Current Medications TAKE these medications clindamycin 150 mg capsule Take 3 capsules (450 mg total) by mouth 3 (three) times a day for 7 days Commonly known as: CLEOCIN collagenase ointment Apply topically daily Commonly known as: SANTYL HYDROcodone-acetaminophen 5-325 mg per tablet Take 1 tablet by mouth every 4 (four) hours as needed for pain (use before dressing changes) For: pain Commonly known as: NORCO sulfamethoxazole-trimethoprim 800-160 mg per tablet Take 2 tablets (320 mg of trimethoprim total) by mouth 2 (two) times a day for 7 days Commonly known as: BACTRIM DS Outpatient Follow-Up: documented in this encounter Medications at Time of Discharge collagenase (SANTYL) ointment Apply topically daily 30 g 1 10/09/2021 HYDROcodone-acet aminophen (NORCO) 5-325 mg per tabletIndication s:Pain Take 1 tablet by mouth every 4 (four) hours as needed for pain (use before dressing changes) 10 tablet 10/09/2021 clindamycin (CLEOCIN) 150 mg capsule Take 3 capsules (450 mg total) by mouth 3 (three) times a day for 7 days 63 capsule 10/09/2021 2 sulfamethoxazole -trimethoprim (BACTRIM DS) 800-160 mg per tablet Take 2 tablets (320 mg of trimethoprim total) by mouth 2 (two) times a day for 7 days 28 tablet 10/09/2021 2 documented as of this encounter Ordered Prescriptions Prescription Sig Dispense Quantity Refills Last Filled Start Date End Date HYDROcodone-aceta minophen (NORCO) 5-325 mg per tabletIndications :Pain Take 1 tablet by mouth every 4 (four) hours as needed for pain (use before dressing changes) 10 tablet 10/09/2021 collagenase (SANTYL) ointment Apply topically daily 30 g 1 10/09/2021 clindamycin (CLEOCIN) 150 mg capsule Take 3 capsules (450 mg total) by mouth 3 (three) times a day for 7 days 63 capsule 10/09/2021 2 sulfamethoxazole- trimethoprim (BACTRIM DS) 800-160 mg per tablet Take 2 tablets (320 mg of trimethoprim total) by mouth 2 (two) times a day for 7 days 28 tablet 10/09/2021 2 documented in this encounter Discharge Disposition Disposition Code Departure Means Destination Discharge to home or self care documented in this encounter Progress Notes * Kecia Blum MD - 10/09/2021 1:30 PM CDT [facility] Acute and Critical Care Surgery (ACCS) Consult Service Daily Progress Note Admit: 10/07/2021 4:45 AM Date: October 09, 2021 Length of Stay: 0 Attending: Patricia Newby MD POD: Subjective Interval History: NAEON. Patient underwent bedside debridement yesterday. Wound base is clean. Pain well controlled. Objective Medications: Current Facility-Administered Medications: ??? Carrier Fluids for Secondary Infusion - 0.9% Sodium Chloride, 30 mL, intravenous, PRN, Aruna Fonseca MD ??? cefTRIAXone (ROCEPHIN) 1,000 mg/10 mL in sterile water (premix) 1,000 mg, 1,000 mg, intravenous, Q24H Raymundo CASTANO Kelsey Sarah, MD, 1,000 mg at 10/09/21 0948 ??? collagenase (SANTYL) 250 unit/gram ointment, , topical, Daily, Johanna Mojica MD ??? enoxaparin (LOVENOX) syringe 40 mg, 40 mg, subcutaneous, Q12H Raymundo CASTANO Kelsey Sarah, MD, 40 mg at 10/09/21 0949 ??? HYDROcodone-acetaminophen (NORCO) 5-325 mg per tablet 1 tablet, 1 tablet, oral, Q4H PRN, Aruna Fonseca MD, 1 tablet at 10/09/21 0959 ??? metroNIDAZOLE (FLAGYL) 500 mg/100 mL in sodium chloride (premix) 500 mg, 500 mg, intravenous, Q8H Raymundo CASTANO Kelsey Sarah, MD, Last Rate: 200 mL/hr at 10/09/21 0635, 500 mg at 10/09/21 0635 ??? morphine injection 2 mg, 2 mg, intravenous, Q4H PRN, Aruna Fonseca MD, 2 mg at 10/09/21 0639 ??? sodium chloride 0.9% flush 0.5-20 mL, 0.5-20 mL, intra-catheter, Q8H Raymundo CASTANO Kelsey Sarah, MD, 10 mL at 10/09/21 0951 ??? sodium chloride 0.9% flush 0.5-20 mL, 0.5-20 mL, intra-catheter, PRN, Aruna Fonseca MD ??? vancomycin 1,750 mg/517.5 mL sodium chloride 0.9% (premix) 1,750 mg, 15 mg/kg, intravenous, Q12H, Aruna Fonseca MD, Stopped at 10/09/21 0345 Diet: Dietary Orders (From admission, onward) Start Ordered 10/07/21 1237 Adult Diet Regular Diet effective now Question: ([facility]) Diet type Answer: Regular 10/07/21 1236 Is&Os: I/O last 2 completed shifts: In: 200 [P.O.:200] Out: - No intake/output data recorded. Physical Exam: BP 112/76 (BP Location: Right arm) Pulse 74 Temp 36.6 ??C (97.88 ??F) (Oral) Resp 18 Ht 170.2 cm (5' 7 ) Wt 117.9 kg (260 lb) SpO2 99% BMI 40.72 kg/m?? GENERAL: No acute distress, obese woman lying comfortably in bed NEURO: Alert and oriented x3 PSYCH: appropriate mood and affect HEENT: normocephalic, atraumatic, pupils equal, EOMs grossly intact, neck supple, trachea midline RESP: breathing comfortably on room air CARDIO: RRR ABDOMEN: Soft, NT/ND : normal genitalia Ext: no cyanosis, clubbing. Wound on lateral L calf with clean wound base Labs/Imaging: Recent Labs Lab Units 10/07/21 0321 WBC K/cumm 6.4 HEMOGLOBIN g/dL 14.1 HEMATOCRIT % 43.9 PLATELETS K/cumm 269 Recent Labs Lab Units 10/07/21 0321 SODIUM mmol/L 141 POTASSIUM PLASMA mmol/L 4.2 CHLORIDE mmol/L 102 CO2 mmol/L 30 BUN SERUM mg/dL 19 CREATININE mg/dL 0.97 GLUCOSE mg/dL 100 CALCIUM mg/dL 9.3 No results found. Assessment/Plan Patient Active Problem List Diagnosis ??? Acne ??? Rash ??? Surgical follow-up care ??? Animal bite ??? Cellulitis ??? Class 3 severe obesity in adult (CMS/HCC) (HCC) Shantel Del Real is a 56 y.o. female with no sig PMH presenting with cat bite on lateral L calf two weeks ago s/p 10d augmentin. Presently admitted with c/f eschar on wound; ACCS c/s for debridementnow s/p bedside debridement. - Santyl, ABD, Kerlix and ADRIANA bandage to wound daily - Two week follow-up appointment with ACCS has been requested - No further debridements needed while inpatient - Antibiotics per primary team - Patient cleared for discharge from a surgery standpoint - ACCS will sign off at this time. The care plan above has been or will be discussed with attending physician. Any changes will be communicated to the primary team. Please contact the [facility] Inpatient Consult Service at the number listed below with any questions or concerns regarding the surgical management of this patient. Kecia Blum MD Resident Physician General Surgery PGY-2 ACCS ED Consult [facility]S Inpatient Consult [facility] Outpatient Clinic - option 1 Cosigned by Carl Gordon MD at 10/10/2021 12:42 PM CDT Associated attestation - Carl Gordon MD - 10/10/2021 12:42 PM CDT I have personally seen and examined this patient on the date of service as documented on the Resident note and have reviewed and confirmed the history, physical exam, laboratory,radiographic data, assessment and plan as documented by the resident. Carl Gordon MD Section of Acute and Critical Care Surgery * Patricia Newby MD - 10/09/2021 10:55 AM CDT Daily Progress Note Division of Hospital Medicine Name: Shantel Del Real Today: October 09, 2021 : 1965 Age: 56 y.o. female Admit: 10/07/2021 Bed: [id number] Subjective Chief complaint: cat bite Interval History: Wound is sore after debridement yesterday by [facility]S. Otherwise feels well. No F/C/N/V/CP/SOB Objective Medications: Scheduled: cefTRIAXone, 1,000 mg, intravenous, Q24H EYAD collagenase, , topical, Daily enoxaparin, 40 mg, subcutaneous, Q12H EYAD metroNIDAZOLE, 500 mg, intravenous, Q8H EYAD sodium chloride 0.9%, 0.5-20 mL, intra-catheter, Q8H EYAD vancomycin, 15 mg/kg, intravenous, Q12H Infusions: PRN: ??? sodium chloride 0.9% ??? HYDROcodone-acetaminophen ??? morphine ??? sodium chloride 0.9% Vitals: 24hr Min/Max: Temp Min: 36.4 ??C (97.5 ??F) Max: 36.7 ??C (98.1 ??F) Pulse Min: 74 Max: 79 BP Min: 112/76 Max: 127/70 Resp Min: 18 Max: 20 SpO2 Min: 97 % Max: 99 % Most Recent: Vitals: 10/09/21 0410 BP: 112/76 Pulse: 74 Resp: 18 Temp: 36.6 ??C (97.88 ??F) SpO2: 99% Intake/Output Summary (Last 24 hours) at 10/09/2021 1048 Last data filed at 10/08/2021 2200 Gross per 24 hour Intake 200 ml Output -- Net 200 ml Physical Exam General: NAD HEENT: sclera anicteric Lungs: CTAB Abd: S/NT/ND +BS CV: RRR, S1 S2 Ext: L leg dressing in place Neuro: A&O x 3 Lab/Diagnostic Review: Recent Results (from the past 36 hour(s)) Vancomycin level trough Draw trough 30 minutes prior to 4th dose. Collection Time: 10/09/21 1:12 AM Result Value Ref Range Vancomycin trough 21.1 (H) 10.0 - 20.0 mcg/mL I have reviewed the laboratory results. 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 * Animal bite Assessment & Plan -Patient bit by her cat, completed augmentin [...] changes with Santyl, ABD, Kerlix, ADRIANA wrap I spent 35 minutes in discharge planning and coordination including discussion with patient about wound care and follow-up, coordinating f/u with general surgery, documenting progress note and discharge summary, completing discharge orders and med rec + Rx * Marielos Early RN - 10/08/2021 2:52 PM CDT CM Initial Assessment Interview Note Information Obtained From: Patient (10/08/21 1451) Admission Source: Non health care facility Impression: Cat bite Plan Includes: Safe discharge planning Primary Source of Transportation: Does the patient need discharge transport arranged?: No (10/08/21 1000) Health Insurance Coverage: [employer] Prescription Coverage: yes [facility]acy: [facility] Primary Care Provider: Janiya Trotter NP Prior to Admission: Primary Caregiver: Self Support System: Children Support system contact info (name, phone, availablity): S/O Frank Burton [phone] Home Care Services: No Durable Medical Equipment: None Living Arrangements: Children Type of Residence: Private residence Steps in home? : No steps inside or outside (10/08/21 1451) SDOH: Transportation Needs: Not on file Financial Resource Strain: Not on file Housing Stability: Not on file Social Connections: Not on file Tobacco Use: Medium Risk ??? Smoking Tobacco Use: Former Smoker ??? 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 Son and SO, Lul, available for any assistance needed. Patient's Identified Problem/Goal Problem: Ensure acute medical needs are met and that patient has a safe discharge plan. Goal: Secure a discharge plan that patient/family are agreeable with and ensure patient has continuum of care. Case management will follow for discharge planning and send referrals as needed. Goals include: To assure continuity of care, To maximize coping skills, To assure patient is in a safe environment and To assure access to community resources. Plan includes: 1. Collaboration with patient, MD, direct care nurse, Concrete Stone Finishing Supervisor, Nurse Coordinator and other members of the health care team to assure needed interventions completed. 2. Return patient to optimal level of self-care post discharge. 3. Electromagnet Crane Operator will follow for Discharge Planning - interventions as needed 4. Anticipated level of care at discharge 5. Planned Discharge Disposition Based on a comprehensive family assessment, assistance with instrumental activities of daily livingafter discharge will be provided by patient. Through the course of our work I determined that the patient possesses the skill and ability to provide and monitor the care of the patient when he or she returns home. Patient has the capacity to provide/monitor/arrange for the care of the patient. Finally, we determined that patient has the knowledge of available resources and that combining them with their existing resources will suffice to sustain and care for the patient when he or she returns home. The treatment team is aware of this information. All are in agreement with the aftercare plan. Marielos Early RN * Patricia Newby MD - 10/08/2021 10:27 AM CDT Daily Progress Note Division of Hospital Medicine Name: Shantel Del Real Today: October 08, 2021 : 1965 Age: 56 y.o. female Admit: 10/07/2021 Bed: [id number] Subjective Chief complaint: cat bite Interval History: Patient thinks wound is getting better. Pain is decreased from yesterday. No F/C/N/V/CP/SOB. Objective Medications: Scheduled: cefTRIAXone, 1,000 mg, intravenous, Q24H EYAD enoxaparin, 40 mg, subcutaneous, Q12H EYAD metroNIDAZOLE, 500 mg, intravenous, Q8H EYAD sodium chloride 0.9%, 0.5-20 mL, intra-catheter, Q8H EYAD vancomycin, 15 mg/kg, intravenous, Q12H Infusions: PRN: ??? sodium chloride 0.9% ??? HYDROcodone-acetaminophen ??? morphine ??? sodium chloride 0.9% Vitals: 24hr Min/Max: Temp Min: 36.4 ??C (97.52 ??F) Max: 36.5 ??C (97.7 ??F) Pulse Min: 68 Max: 79 BP Min: 111/70 Max: 130/89 Resp Min: 15 Max: 18 SpO2 Min: 96 % Max: 100 % Most Recent: Vitals: 10/08/21 0820 BP: 111/70 Pulse: 72 Resp: 16 Temp: 36.4 ??C (97.52 ??F) SpO2: 98% No intake or output data in the 24 hours ending 10/08/21 1014 Physical Exam General: NAD HEENT: sclera anicteric Lungs: CTAB CV: RRR, S1 S2 Abd: S/NT/ND +BS Skin: L leg wound with eschar, surrounding cellulitis Neuro: A&O x 3 Lab/Diagnostic Review: Recent Results (from the past 36 hour(s)) CBC with auto differential Collection Time: 10/07/21 3:21 AM Result Value Ref Range WBC 6.4 3.8 - 9.9 K/cumm Hgb 14.1 11.9 - 15.5 g/dL Hct 43.9 35.6 - 45.5 % Plt 269 150 - 400 K/cumm MPV 9.8 9.1 - 12.3 fL RBC 4.91 3.90 - 5.20 M/cumm MCV 89.4 81.3 - 96.4 fL MCH 28.7 27.1 - 33.3 pg MCHC 32.1 (L) 32.3 - 35.7 g/dL RDW CV 12.9 11.1 - 14.9 % RDW SD 42.5 35.7 - 48.1 fL NRBC abs 0.00 0.00 - 0.01 K/cumm Basic metabolic panel Collection Time: 10/07/21 3:21 AM Result Value Ref Range Sodium 141 135 - 145 mmol/L Potassium, pl 4.2 3.3 - 4.9 mmol/L Chloride 102 97 - 110 mmol/L CO2 30 22 - 32 mmol/L Anion gap 9 2 - 15 mmol/L BUN 19 8 - 25 mg/dL Creatinine 0.97 0.60 - 1.10 mg/dL Glucose 100 70 - 199 mg/dL Calcium 9.3 8.5 - 10.3 mg/dL Erythrocyte sedimentation rate Collection Time: 10/07/21 3:21 AM Result Value Ref Range Erythrocyte sedimentation rate 30 1 - 30 mm/hr CRP (acute phase) Collection Time: 10/07/21 3:21 AM Result Value Ref Range CRP 4.2 <=10.0 mg/L Differential, auto Collection Time: 10/07/21 3:21 AM Result Value Ref Range Neutrophil abs 3.1 1.7 - 6.5 K/cumm Imm gran abs 0.0 0.0 - 0.1 K/cumm Lymphocyte abs 2.3 0.8 - 3.3 K/cumm Monocyte abs 0.6 0.2 - 0.8 K/cumm Eosinophil abs 0.4 0.0 - 0.5 K/cumm Basophil abs 0.0 0.0 - 0.1 K/cumm Neutrophil pct 48.5 % Imm gran pct 0.3 % Lymphocyte pct 35.6 % Monocyte pct 8.6 % Eosinophil pct 6.7 % Basophil pct 0.3 % eGFR Collection Time: 10/07/21 3:21 AM Result Value Ref Range eGFR 69 (L) 90 - 130 mL/min/1.73 m2 COVID-19 Coronavirus RNA Nasopharyngeal Collection Time: 10/07/21 8:29 AM Specimen: Nasopharyngeal Result Value Ref Range COVID-19 RNA Negative Negative I have reviewed the laboratory results. 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 History and Physical Division of [facility] Medicine Name: Shantel Del Real Today: October 07, 2021 : 1965 Age: 56 y.o. female Subjective Ms. Del Real is a 56 y.o. female with chief complaint of cat bite. HPI: Patient is a 56yo F with no PMH who presents with a cat bite. She notes her cat bit her twice on the L calf two weeks ago. She has been to an Urgent Care and the hospital for this, and completed 10 days total of augmentin. She saw her PCP yesterday and started doxycycline. Patient says she thinks the wound actually looks slightly better, but has difficulty taking a look at her leg. She denies anyfevers or chills at home. Never had pus coming out of the wound, only blood. She notes the pain hasbeen severe especially when walking on it, and pain has remained unchanged over the past two weeks.Has been taking Vicodin 5-325 for the pain. In the ED vitals stable, no leukocytosis. CRP and ESR are wnl. Xray of the leg with soft tissue swelling, no gas. She was started on ceftriaxone and flagyl and admitted. I have reviewed and summarized above findings from [facility] and Care Everywhere. No past medical history on file. No past surgical history on file. No current facility-administered medications on file prior to encounter. Current Outpatient Medications on File Prior to Encounter Medication Sig ??? [DISCONTINUED] albuterol 5 mg/mL nebulizer solution Take 0.5 mL (2.5 mg total) by nebulization every 6 (six) hours as needed for wheezing ??? [DISCONTINUED] clobetasoL (TEMOVATE) 0.05 % ointment Apply thin layer to AA R bonilla BID PRN rash ??? [DISCONTINUED] predniSONE (DELTASONE) 10 mg tablet Take 6 tablets oral daily for 3 days then 5 tablets daily for 3 days 4 tablets daily for 3 days then 3 tablets daily for 3 days then 2 tablets daily for 1 day then 1 tablet daily for 1 day then stop. No Known Allergies Social History Tobacco Use ??? Smoking status: Former Smoker ??? Smokeless tobacco: Not on file Substance Use Topics ??? Alcohol use: Not on file Family History Problem Relation Age of Onset ??? Heart attack Mother ??? Hypertension Other Family history of hypertension - (Added by TW Conv) Family History reviewed and non-contributory. Review of Systems All other systems were reviewed and are negative except for that which is listed in the History of Present Illness. Objective Vitals: 24hr Min/Max: Temp Min: 36.6 ??C (97.9 ??F) Max: 36.7 ??C (98 ??F) Pulse Min: 77 Max: 95 BP Min: 127/88 Max: 158/94 Resp Min: 16 Max: 16 SpO2 Min: 97 % Max: 99 % Most Recent Vitals: Vitals: 10/07/21 0430 BP: 136/89 Pulse: 77 Resp: 16 Temp: SpO2: 97% No intake or output data in the 24 hours ending 10/07/21 0826 Physical Exam Constitutional: NAD, well developed, well nourished Eyes: EOMI, anicteric ENT: NCAT, oropharynx normal, moist mucus membranes Lungs: Diminished lung sounds 2/2 body habitus, unlabored, trachea midline Cardiovascular: RRR, normal S1 and S2, no murmurs, GI: Soft, non-tender, non-distended, bowel sounds +, no organomegaly Skin: LLE calf with black eschar and surrounding erythema, tender to palpation. No crepitus Extremities: Normal without edema or cyanosis Neurologic: AOx4, CNII-XII grossly intact, normal strength and sensation in the LLE Psychiatric: Normal affect and mood I have reviewed the patient's vital signs. Lab/Diagnostic Review: Recent Results (from the past 36 hour(s)) CBC with auto differential Collection Time: 10/07/21 3:21 AM Result Value Ref Range WBC 6.4 3.8 - 9.9 K/cumm Hgb 14.1 11.9 - 15.5 g/dL Hct 43.9 35.6 - 45.5 % Plt 269 150 - 400 K/cumm MPV 9.8 9.1 - 12.3 fL RBC 4.91 3.90 - 5.20 M/cumm MCV 89.4 81.3 - 96.4 fL MCH 28.7 27.1 - 33.3 pg MCHC 32.1 (L) 32.3 - 35.7 g/dL RDW CV 12.9 11.1 - 14.9 % RDW SD 42.5 35.7 - 48.1 fL NRBC abs 0.00 0.00 - 0.01 K/cumm Basic metabolic panel Collection Time: 10/07/21 3:21 AM Result Value Ref Range Sodium 141 135 - 145 mmol/L Potassium, pl 4.2 3.3 - 4.9 mmol/L Chloride 102 97 - 110 mmol/L CO2 30 22 - 32 mmol/L Anion gap 9 2 - 15 mmol/L BUN 19 8 - 25 mg/dL Creatinine 0.97 0.60 - 1.10 mg/dL Glucose 100 70 - 199 mg/dL Calcium 9.3 8.5 - 10.3 mg/dL Erythrocyte sedimentation rate Collection Time: 10/07/21 3:21 AM Result Value Ref Range Erythrocyte sedimentation rate 30 1 - 30 mm/hr CRP (acute phase) Collection Time: 10/07/21 3:21 AM Result Value Ref Range CRP 4.2 <=10.0 mg/L Differential, auto Collection Time: 10/07/21 3:21 AM Result Value Ref Range Neutrophil abs 3.1 1.7 - 6.5 K/cumm Imm gran abs 0.0 0.0 - 0.1 K/cumm Lymphocyte abs 2.3 0.8 - 3.3 K/cumm Monocyte abs 0.6 0.2 - 0.8 K/cumm Eosinophil abs 0.4 0.0 - 0.5 K/cumm Basophil abs 0.0 0.0 - 0.1 K/cumm Neutrophil pct 48.5 % Imm gran pct 0.3 % Lymphocyte pct 35.6 % Monocyte pct 8.6 % Eosinophil pct 6.7 % Basophil pct 0.3 % eGFR Collection Time: 10/07/21 3:21 AM Result Value Ref Range eGFR 69 (L) 90 - 130 mL/min/1.73 m2 I have reviewed the laboratory results. Imaging Results: XR Tibia Fibula Left 2 Views Narrative: EXAMINATION: XR TIBIA FIBULA LEFT 2 VIEWS HISTORY: Animal bite to left lower extremity 2 weeks ago. Impression: 2 views of the left tibia and fibula are submitted without comparison. No acute fracture or osseous erosion. Alignment is normal. Soft tissue swelling about the left calf. No soft tissue gas. No foreign body. Left knee osteoarthritis. Dictated by: Myla Mckeon M.D. I have independently reviewed and interpreted Xray of the fibula without fracture. 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 Will add Vancomycin for additional MRSA coverage - no crepitus or fluctuance felt on exam, but will order ultrasound of leg to assess - if no improvement with IV antibiotics, consider surgery consult for possible debridement Aruna Fonseca MD Hospitalist, Division of Hospital Medicine documented in this encounter Procedure Notes * Johanna Mojica MD - 10/08/2021 7:23 PM CDTAssociated Order(s): Incision and Drainage Post-Procedure Diagnose(s): Cat bite of left lower leg, initial encounter Incision and Drainage Date/Time: 10/08/2021 7:30 PM Performed by: Johanna Mojica MD Authorized by: Johanna Mojica MD [place] Protocol: RN Notified of Procedure: yes Informed consent: Risks, benefits, alternatives discussed and 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 Slough overlying tissue mechanically debrided using gauze. Complexity: Simple Wound treatment: Wound left open Patient tolerance: Patient tolerated the procedure well with no immediate complications Eschar removed successfully with underlying healthy pink tissue. Will need daily Santyl, abd, Kerlix and ADRIANA wrap for dressing. Patient will have follow up in [facility] wound clinic for ongoing monitoring. Post Procedure Debrief: All guidewires, needles, sponges or other items are accounted for: yes Any special post procedure monitoring, testing or other considerations: n/a Cosigned by Simin Perez MD at 11/11/2021 1:17 PM CDT documented in this encounter Consult Notes * Johanna Mojica MD - 10/08/2021 10:01 AM CDTAssociated Order(s): IP CONSULT TO GENERAL SURGERY Images from the original note were not included. [facility] Acute Care Surgery Consultation Encounter Date: 10/09/21 Patient Identification Patient's Primary Care Physician: Janiya Trotter NP Name: Shantel Del Real Age: 56 y.o. Sex: female Reason for Consultation: Physician requesting consult: has asked that we see Shantel Dle Real for evaluation of L leg cat bite wound - evaluate if needs debridement. Patient information was obtained from patient. History/Exam limitations: none. Chief Complaint Animal Bite History of Present Illness: Shantel Del Real is a 56 y.o. female with no significant PMH presenting with a cat bite from two weeks ago. She was her cat from her son's cat when her cat accidentally bit the lateral aspect of her L calf. She went to an OSH where she was started on antibiotics and she completed a total of 10 days of Augmentin. She presents to [facility] with concerns for poor wound healing. There is a large area of eschar on her wound. No active purulence, induration. Minimal surrounding erythema. Last labs from 2 days ago with WBC 6.4 and Cr 0.97. Patient denies fevers, chills. Past Medical: No past medical history on file. Surgical History: No past surgical history on file. Current Medications: Current Facility-Administered Medications Medication Dose Route Frequency Provider Last Rate Last Admin ??? Carrier Fluids for Secondary Infusion - 0.9% Sodium Chloride 30 mL intravenous PRN Diogo Fonseca MD ??? cefTRIAXone (ROCEPHIN) 1,000 mg/10 mL in sterile water (premix) 1,000 mg 1,000 mg intravenous Q24H Aruna Severino MD 1,000 mg at 10/08/21 1004 ??? collagenase (SANTYL) 250 unit/gram ointment topical Daily Johanna Mojica MD ??? enoxaparin (LOVENOX) syringe 40 mg 40 mg subcutaneous Q12H Aruna Severino MD 40 mg at 10/08/211957 ??? HYDROcodone-acetaminophen (NORCO) 5-325 mg per tablet 1 tablet 1 tablet oral Q4H PRN Aruna Fonseca MD 1 tablet at 10/09/21 0028 ??? metroNIDAZOLE (FLAGYL) 500 mg/100 mL in sodium chloride (premix) 500 mg 500 mg intravenous Q8H Aruna Severino MD Stopped at 10/08/21 2230 ??? morphine injection 2 mg 2 mg intravenous Q4H PRN Aruna Fonseca MD 2 mg at 10/09/21 0230 ??? sodium chloride 0.9% flush 0.5-20 mL 0.5-20 mL intra-catheter Q8H Aruna Severino MD 10mL at 10/08/211958 ??? sodium chloride 0.9% flush 0.5-20 mL 0.5-20 mL intra-catheter PRN Aruna Fonseca MD ??? vancomycin 1,750 mg/517.5 mL sodium chloride 0.9% (premix) 1,750 mg 15 mg/kg intravenous Q12H Aruna Fonseca MD Stopped at 10/09/21 0345 Allergies: No Known Allergies Family History: Family History Problem Relation Age of Onset ??? Heart attack Mother ??? Hypertension Other Family history of hypertension - (Added by TW Conv) Social History: reports that she has quit smoking. She does not have any smokeless tobacco history on file. No history on file for alcohol use and drug use. Review of Systems Negative except as stated above. Physical Examination: Ht:170.2 cm (5' 7 ) Wt:117.9 kg (260 lb) Body mass index is 40.72 kg/m??. BP 112/76 (BP Location: Right arm) Pulse 74 Temp 36.6 ??C (97.88 ??F) (Oral) Resp 18 Ht 170.2 cm (5' 7 ) Wt 117.9 kg (260 lb) SpO2 99% BMI 40.72 kg/m?? GENERAL: No acute distress, obese woman lying comfortably in bed NEURO: Alert and oriented x3 PSYCH: appropriate mood and affect HEENT: normocephalic, atraumatic, pupils equal, EOMs grossly intact, neck supple, trachea midline RESP: breathing comfortably on room air CARDIO: RRR ABDOMEN: Soft, NT/ND : normal genitalia Ext: no cyanosis, clubbing. Wound on lateral L calf. MUSCULOSKELETAL: Grossly normal range of motion Labs, Radiology and Diagnostic Review: Laboratory review: Lab results in the last 12 hours: Recent Results (from the past 12 hour(s)) Vancomycin level trough Draw trough 30 minutes prior to 4th dose. Collection Time: 10/09/21 1:12 AM Result Value Ref Range Vancomycin trough 21.1 (H) 10.0 - 20.0 mcg/mL Assessment and Plan: Patient Active Problem List Diagnosis ??? Acne ??? Rash ??? Surgical follow-up care ??? Animal bite ??? Cellulitis ??? Class 3 severe obesity in adult (CMS/FORMERLY [facility]) ([facility]) Shantel Del Real is a 56 y.o. female with no sig PMH presenting with cat bite on lateral L calf two weeks ago s/p 10d augmentin. Presently admitted with c/f eschar on wound; [facility] c/s for debridement. - Debride at bedside - Santyl, ABD, Kerlix and ADRIANA bandage to wound - Will make f/u for wound clinic Discussed with attending: Dr. Perez at 2 pm (time). Johanna Green MD Resident Physician General Surgery Surgery ED Consult [facility] Inpatient Consult [facility] Outpatient Clinic - option 1 Cosigned by Simin Perez MD at 11/09/2021 1:52 PM CDT Associated attestation - Simin Perez MD - 11/09/2021 1:52 PM CDT I have seen and examined the patient on 10/08/2021. I agree with the findings and plan of care as documented in the resident's/fellow's note.. documented in this encounter ED Notes * Nahomy Figueroa MD - 10/07/2021 5:36 AM CDT HPI Chief Complaint Patient presents with ??? Animal Bite 56-year-old female previously healthy who comes in with an animal bite. She says that this happened2 weeks ago, she was initially seen at an outside [facility] hospital at which time she was given Augmentin for 5 days x2, finished a course, and was then prescribed doxy yesterday by her PCP avoid mupirocin. Patient endorses extreme pain to palpation, has been able to bear weight on the leg, hemodynamically stable and neurovascularly intact, denies trauma, shortness of breath, abdominal pain, vomiting, dysuria HPI Patient History: Patient Active Problem List Diagnosis Date Noted ??? Animal bite 10/07/2021 ??? Cellulitis 10/07/2021 ??? Class 3 severe obesity in adult (CMS/HCC) (HCC) 10/07/2021 ??? Surgical follow-up care 09/17/2013 ??? Acne 09/04/2013 ??? Rash 09/04/2013 No past medical history on file. No past surgical history on file. Family History Problem Relation Age of Onset ??? Heart attack Mother ??? Hypertension Other Family history of hypertension - (Added by TW Conv) Social History Tobacco Use ??? Smoking status: Former Smoker Social History Social History Narrative ??? Not on file Review of Systems Review of Systems Constitutional: Negative for chills and fever. HENT: Negative for ear pain and sore throat. Eyes: Negative for pain and visual disturbance. Respiratory: Negative for cough and shortness of breath. Cardiovascular: Negative for chest pain and palpitations. Gastrointestinal: Negative for abdominal pain and vomiting. Genitourinary: Negative for dysuria and hematuria. Musculoskeletal: Negative for arthralgias and back pain. Skin: Positive for rash. Negative for color change. Neurological: Negative for seizures and syncope. All other systems reviewed and are negative. Physical Exam ED Triage Vitals Temp Pulse Resp BP SpO2 10/06/21225510/06/21225510/06/21225510/06/21225510/06/212255 36.7 ??C (98 ??F) 95 16 158/94 99 % Temp src Heart Rate Source Patient Position BP Location FiO2 (%) 10/07/21 1130 10/07/21 1130 10/07/21 1130 10/07/21 1130 -- Oral Pulse Oximetry HOB 30 degrees Left arm Height Height Method Weight Weight Method 10/06/212255 -- 10/06/212255 -- 1.702 m (5' 7 ) 117.9 kg (260 lb) Physical Exam Vitals and nursing note reviewed. Constitutional: General: She is not in acute distress. Appearance: She is well-developed. HENT: Head: Normocephalic and atraumatic. Eyes: Conjunctiva/sclera: Conjunctivae normal. Cardiovascular: Rate and Rhythm: Normal rate and regular rhythm. Heart sounds: Normal heart sounds. No murmur heard. Pulmonary: Effort: Pulmonary effort is normal. No respiratory distress. Breath sounds: Normal breath sounds. Abdominal: General: Bowel sounds are normal. There is no distension. Palpations: Abdomen is soft. Tenderness: There is no abdominal tenderness. There is no guarding. Musculoskeletal: General: Tenderness present. Cervical back: Neck supple. Skin: General: Skin is warm and dry. Findings: Lesion present. Neurological: Mental Status: She is alert and oriented to person, place, and time. MDM Medical Decision Making Differential Diagnosis or Management Options: 56 y.o. female w/ previously healthy who comes in with an animal bite. Vitals notable for: AFVSS DDX: Cat bite with lower suspicion for osteomyelitis, also cellulitis on ddx Plan: 1) Labs: CBC, CMP 2) Imaging/other tests: XR leg 3) Therapeutics: CTX and metronidazole 4) dispo pending results and clinical course - anticipate admit Please see ED course for further details relevant to this patient's ED management Reviewed previous records: From clinic visits Attending Summary of Care ED Course as of 10/13/21 0908 Time: 10/07 604 Comment: ATTENDING MDM 56F PMH none here with cat bite and failed OP Augmentin x 2, started on doxy yesterday by PCP + topical mupirocin, comes in today for worsening pain, swelling. Denies F/C/N/v. Taking oxy for pain buthas used all of it to be able to function. Has 8 cm diameter wound to left lateral leg partially with eschar and some granulation tissue. No crepitus or pain OOP. C/f cellulitis with failed OP management, less likely nec infection or sepsis. Will get labs, pain control, IV antibiotics, admit. I, Nahomy Figueroa MD, have personally performed the services described in the documentation. I have seen and examined this patient, I have discussed/reviewed the history, physical exam and assessment with the resident. We are in agreement with treatment plan except as I have noted. By: Nahomy Figueroa MD Time: 10/07 713 Comment: ED [place]SA[place]: Care assumed from Dr. Figueroa, 56 year old female presented s/p cat bite two weeksago, has completed multiple courses of augmentin and started doxycycline, here with increasing painand swelling. Has received ceftriaxone and metronidazole awaiting admit to medicine. By: Evens Joe MD Time: 10/07 0751 Comment: Signed out By: Gaurav Kam MD Cat bite of left lower leg, initial encounter Breana Rodríguez MD Resident 10/07/21 2315 Nahomy Figueroa MD 10/13/21 0908 * Supriya Vargas, RAMON - 10/06/2021 10:55 PM CDT Pt to ed c/o L lower leg cat bite. Ambulatory, has been treated for it before. Occurred 2 weeks ago. Physician at another facility stated she may need IV antibiotics. Pt on doxycyline & mupirocincream. Area red, inflamed, swollen & draining blood. 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 female Admit: 10/07/2021 Bed: [id number] Subjective Chief complaint: cat bite Interval History: Wound is sore after debridement yesterday by [facility]. Otherwise feels well. No F/C/N/V/CP/SOB Objective Medications: Scheduled: cefTRIAXone, 1,000 mg, intravenous, Q24H EYAD collagenase, , topical, Daily enoxaparin, 40 mg, subcutaneous, Q12H EYAD metroNIDAZOLE, 500 mg, intravenous, Q8H EYAD sodium chloride 0.9%, 0.5-20 mL, intra-catheter, Q8H EYAD vancomycin, 15 mg/kg, intravenous, Q12H Infusions: PRN: sodium chloride 0.9% HYDROcodone-acetaminophen morphine sodium chloride 0.9% Vitals: 24hr Min/Max: Temp Min: 36.4 ??C (97.5 ??F) Max: 36.7 ??C (98.1 ??F) Pulse Min: 74 Max: 79 BP Min: 112/76 Max: 127/70 Resp Min: 18 Max: 20 SpO2 Min: 97 % Max: 99 % Most Recent: Vitals: 10/09/21 0410 BP: 112/76 Pulse: 74 Resp: 18 Temp: 36.6 ??C (97.88 ??F) SpO2: 99% Intake/Output Summary (Last 24 hours) at 10/09/2021 1048 Last data filed at 10/08/2021 2200 Gross per 24 hour Intake 200 ml Output -- Net 200 ml Physical Exam General: NAD HEENT: sclera anicteric Lungs: CTAB Abd: S/NT/ND +BS CV: RRR, S1 S2 Ext: L leg dressing in place Neuro: A&O x 3 Lab/Diagnostic Review: Recent Results (from the past 36 hour(s)) Vancomycin level trough Draw trough 30 minutes prior to 4th dose. Collection Time: 10/09/21 1:12 AM Result Value Ref Range Vancomycin trough 21.1 (H) 10.0 - 20.0 mcg/mL I have reviewed the laboratory results. * Plan of Aby - Pavithra Corey RN - 10/09/2021 7:28 AM CDT Goals: Clinical Goals for the Shift: Pain Control Summary: Problem: Health Behavior: Goal: Understanding of discharge needs will improve Outcome: Progressing Problem: Lack of Knowledge: Goal: Ability to develop a pain control plan will improve Outcome: Progressing Goal: Ability to identify pain intensity on a pain scale and rate it consistently will improve Outcome: Progressing Goal: Ability to notify healthcare provider of pain before it becomes unmanageable or unbearable will improve Outcome: Progressing Problem: Medication: Goal: Satisfaction with pain management regimen will improve Outcome: Progressing Problem: Sensory: Goal: Ability to identify factors that increase the pain will improve Outcome: Progressing Goal: Pain level will decrease Outcome: Progressing * Plan of Minda Coughlin RN - 10/08/2021 9:16 PM CDT Goals: Clinical Goals for the Shift: Safety, pain mgmt, restful night Summary: * Plan of Pavithra Burch RN - 10/08/2021 10:22 AM CDT Goals: Clinical Goals for the Shift: Patient remains fall and injury free Summary: Problem: Health Behavior: Goal: Understanding of discharge needs will improve Outcome: Progressing Problem: Lack of Knowledge: Goal: Ability to develop a pain control plan will improve Outcome: Progressing Goal: Ability to identify pain intensity on a pain scale and rate it consistently will improve Outcome: Progressing Goal: Ability to notify healthcare provider of pain before it becomes unmanageable or unbearable will improve Outcome: Progressing Problem: Medication: Goal: Satisfaction with pain management regimen will improve Outcome: Progressing Problem: Sensory: Goal: Ability to identify factors that increase the pain will improve Outcome: Progressing Goal: Pain level will decrease Outcome: Progressing * Subjective & Objective - Patricia Newby MD - 10/08/2021 10:14 AM CDT Daily Progress Note Division of Hospital Medicine Name: Shantel Del Real Today: October 08, 2021 : 1965 Age: 56 y.o. female Admit: 10/07/2021 Bed: [id number] Subjective Chief complaint: cat bite Interval History: Patient thinks wound is getting better. Pain is decreased from yesterday. No F/C/N/V/CP/SOB. Objective Medications: Scheduled: cefTRIAXone, 1,000 mg, intravenous, Q24H EYAD enoxaparin, 40 mg, subcutaneous, Q12H EYAD metroNIDAZOLE, 500 mg, intravenous, Q8H EYAD sodium chloride 0.9%, 0.5-20 mL, intra-catheter, Q8H EYAD vancomycin, 15 mg/kg, intravenous, Q12H Infusions: PRN: sodium chloride 0.9% HYDROcodone-acetaminophen morphine sodium chloride 0.9% Vitals: 24hr Min/Max: Temp Min: 36.4 ??C (97.52 ??F) Max: 36.5 ??C (97.7 ??F) Pulse Min: 68 Max: 79 BP Min: 111/70 Max: 130/89 Resp Min: 15 Max: 18 SpO2 Min: 96 % Max: 100 % Most Recent: Vitals: 10/08/21 0820 BP: 111/70 Pulse: 72 Resp: 16 Temp: 36.4 ??C (97.52 ??F) SpO2: 98% No intake or output data in the 24 hours ending 10/08/21 1014 Physical Exam General: NAD HEENT: sclera anicteric Lungs: CTAB CV: RRR, S1 S2 Abd: S/NT/ND +BS Skin: L leg wound with eschar, surrounding cellulitis Neuro: A&O x 3 Lab/Diagnostic Review: Recent Results (from the past 36 hour(s)) CBC with auto differential Collection Time: 10/07/21 3:21 AM Result Value Ref Range WBC 6.4 3.8 - 9.9 K/cumm Hgb 14.1 11.9 - 15.5 g/dL Hct 43.9 35.6 - 45.5 % Plt 269 150 - 400 K/cumm MPV 9.8 9.1 - 12.3 fL RBC 4.91 3.90 - 5.20 M/cumm MCV 89.4 81.3 - 96.4 fL MCH 28.7 27.1 - 33.3 pg MCHC 32.1 (L) 32.3 - 35.7 g/dL RDW CV 12.9 11.1 - 14.9 % RDW SD 42.5 35.7 - 48.1 fL NRBC abs 0.00 0.00 - 0.01 K/cumm Basic metabolic panel Collection Time: 10/07/21 3:21 AM Result Value Ref Range Sodium 141 135 - 145 mmol/L Potassium, pl 4.2 3.3 - 4.9 mmol/L Chloride 102 97 - 110 mmol/L CO2 30 22 - 32 mmol/L Anion gap 9 2 - 15 mmol/L BUN 19 8 - 25 mg/dL Creatinine 0.97 0.60 - 1.10 mg/dL Glucose 100 70 - 199 mg/dL Calcium 9.3 8.5 - 10.3 mg/dL Erythrocyte sedimentation rate Collection Time: 10/07/21 3:21 AM Result Value Ref Range Erythrocyte sedimentation rate 30 1 - 30 mm/hr CRP (acute phase) Collection Time: 10/07/21 3:21 AM Result Value Ref Range CRP 4.2 <=10.0 mg/L Differential, auto Collection Time: 10/07/21 3:21 AM Result Value Ref Range Neutrophil abs 3.1 1.7 - 6.5 K/cumm Imm gran abs 0.0 0.0 - 0.1 K/cumm Lymphocyte abs 2.3 0.8 - 3.3 K/cumm Monocyte abs 0.6 0.2 - 0.8 K/cumm Eosinophil abs 0.4 0.0 - 0.5 K/cumm Basophil abs 0.0 0.0 - 0.1 K/cumm Neutrophil pct 48.5 % Imm gran pct 0.3 % Lymphocyte pct 35.6 % Monocyte pct 8.6 % Eosinophil pct 6.7 % Basophil pct 0.3 % eGFR Collection Time: 10/07/21 3:21 AM Result Value Ref Range eGFR 69 (L) 90 - 130 mL/min/1.73 m2 COVID-19 Coronavirus RNA Nasopharyngeal Collection Time: 10/07/21 8:29 AM Specimen: Nasopharyngeal Result Value Ref Range COVID-19 RNA Negative Negative I have reviewed the laboratory results. * Plan of Care - Geneva Rojo RN - 10/07/2021 9:52 PM CDT Goals: Clinical Goals for the Shift: Wound care monitoring vs Problem: Health Behavior: Goal: Understanding of discharge needs will improve Outcome: Progressing Problem: Lack of Knowledge: Goal: Ability to develop a pain control plan will improve Outcome: Progressing Goal: Ability to identify pain intensity on a pain scale and rate it consistently will improve Outcome: Progressing Goal: Ability to notify healthcare provider of pain before it becomes unmanageable or unbearable will improve Outcome: Progressing Problem: Medication: Goal: Satisfaction with pain management regimen will improve Outcome: Progressing Problem: Sensory: Goal: Ability to identify factors that increase the pain will improve Outcome: Progressing Goal: Pain level will decrease Outcome: Progressing * Plan of Care - Lesley Ruiz RN - 10/07/2021 2:40 PM CDT Goals: Clinical Goals for the Shift: Wound care monitoring vs Problem: Health Behavior: Goal: Understanding of discharge needs will improve Outcome: Progressing Problem: Lack of Knowledge: Goal: Ability to develop a pain control plan will improve Outcome: Progressing Goal: Ability to identify pain intensity on a pain scale and rate it consistently will improve Outcome: Progressing Goal: Ability to notify healthcare provider of pain before it becomes unmanageable or unbearable will improve Outcome: Progressing Problem: Medication: Goal: Satisfaction with pain management regimen will improve Outcome: Progressing * Assessment & Plan Note - Patricia Newby MD - 10/07/2021 7:41 AM CDT Associated Problem(s): Class 3 severe obesity in adult (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) -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 * Assessment & Plan Note - Patricia Newby MD - 10/07/2021 7:40 AM CDT Associated Problem(s): Animal bite -Patient bit by her cat, completed augmentin 10 days, started on doxycycline by her PCP without improvement -Wound with eschar and necrotic-appearing tissue; surrounding cellulitis - I discussed with [facility] and they will likely perform bedside debridement -F/u cultures if sent during debridement -continue antibiotics for now -check vanc trough prior to 4th dose * ED Re-evaluation Note - Gaurav Kam MD - 10/07/2021 7:09 AM CDT TRANSITION OF CARE: I, Gaurav Kam MD, am taking signout from the resident under supervision of the attending. I have reviewed all pertinent vital signs, allergies, and history available in the chart. Summary: 56 y.o. female who presents for a cat bite and failed 2 courses of PO augmentin. Started on doxy by pcp yesterday. Has worsening pain and swelling today. Admitted to medicine. Getting ctx and metro. Pending: Bed Dispo: Admit Pt was transferred АНДРЕЙ before I was able to evaluate her. ED Course as of 10/13/21 0908 Time: 10/07 604 Comment: ATTENDING MDM 56F PMH none here with cat bite and failed OP Augmentin x 2, started on doxy yesterday by PCP + topical mupirocin, comes in today for worsening pain, swelling. Denies F/C/N/v. Taking oxy for pain buthas used all of it to be able to function. Has 8 cm diameter wound to left lateral leg partially with eschar and some granulation tissue. No crepitus or pain OOP. C/f cellulitis with failed OP management, less likely nec infection or sepsis. Will get labs, pain control, IV antibiotics, admit. I, Nahomy Figueroa MD, have personally performed the services described in the documentation. I have seen and examined this patient, I have discussed/reviewed the history, physical exam and assessment with the resident. We are in agreement with treatment plan except as I have noted. By: Nahomy Figueroa MD Time: 10/07 713 Comment: ED OKSANA: Care assumed from Dr. Figueroa, 56 year old female presented s/p cat bite two weeksago, has completed multiple courses of augmentin and started doxycycline, here with increasing painand swelling. Has received ceftriaxone and metronidazole awaiting admit to medicine. By: Evens Joe MD Time: 10/07 0751 Comment: Signed out By: Gaurav Kam MD Maxwell, Nicholas Robert, MD Resident 10/07/212027 Gaurav Kam MD Resident 10/07/212028 documented in this encounter Plan of Treatment Not on file documented as of this encounter Procedures Procedure Name Priority Date/Time Associated Diagnosis Comments VANCOMYCIN LEVEL TROUGH STAT 10/09/2021 1:12 AM CDT INCISION AND DRAINAGE Routine 10/08/2021 7:30 PM CDT Cat bite of left lower leg, initial encounter COVID-19 CORONAVIRUS RNA Routine 10/07/2021 8:29 AM CDT XR TIBIA FIBULA LEFT 2 VIEWS ED 10/07/2021 6:03 AM CDT EGFR STAT 10/07/2021 3:21 AM CDT DIFFERENTIAL AUTO STAT 10/07/2021 3:2 1 AM CDT CBC WITH AUTO DIFFERENTIAL STAT 10/07/2021 3:21 AM CDT ERYTHROCYTE SEDIMENTATION RATE STAT 10/07/2021 3:21 AM CDT CRP (ACUTE PHASE) STAT 10/07/2021 3:2 1 AM CDT BASIC METABOLIC PANEL STAT 10/07/2021 3:21 AM CDT documented in this encounter Results * (ABNORMAL) Vancomycin level trough Draw trough 30 minutes prior to 4th dose. (10/09/2021 1:12 AM CDT) Vancomycin trough 21.1(H) 10.0 - 20.0 mcg/mL [facility] Blood 10/09/2021 1:12 AM CDT 10/09/2021 1:29 AM CDT Narrative [facility] - 10/09/2021 2:00 AM CDT Draw trough 30 minutes prior to 4th dose. us Patricia Newby MD LAB BLOOD ORDERABLES Juliana mercado Result [facility] Department [place] [address] * Incision and Drainage (10/08/2021 7:30 PM CDT) Narrative Simin Perez MD - 10/08/2021 7:30 PM CDT Johanna Mojica MD ? 10/09/2021 ??6:26 AM Incision and Drainage Date/Time: 10/08/2021 7:30 PM Performed by: Johanna Mojica MD Authorized by: Johanna Mojica MD [place] Protocol: RN Notified of Procedure: yes ?? 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 Anesthesia (see MAR for exact dosage) Anesthesia method: ??Local infiltration Local anesthetic: ??Lidocaine 1% Patient sedated: No ?? Preparation: Patient was prepped using appropriate disinfectant and draped using sterile technique as needed ?? Needle gauge: ??22 Incision type: ??Elliptical Incision depth: ??Dermal Comments: ??Large eschar removed using scissors and forceps after local infiltration and IV pain medication. Slough overlying tissue mechanically debrided using gauze. Complexity: ??Simple Wound treatment: ??Wound left open Patient tolerance: ??Patient tolerated the procedure well with no immediate complications Eschar removed successfully with underlying healthy pink tissue. Will need daily Santyl, abd, Kerlix and ADRIANA wrap for dressing. Patient will have follow up in [facility] wound clinic for ongoing monitoring. Post Procedure Debrief: All guidewires, needles, sponges or other items are accounted for: yes ?? Any special post procedure monitoring, testing or other considerations: n/a ?? Johanna Green MD IN CLINIC/BEDSIDE ORDERABLES Final Result * COVID-19 Coronavirus RNA Nasopharyngeal (10/07/2021 8:29 AM CDT) COVID-19 RNA Negative Negative [facility] Nasopharyngeal 10/07/2021 8: 29 AM CDT 10/07/2021 8:41 AM CDT [facility] 10/07/2021 9:21 AM CDT Is the patient experiencing any symptoms consistent with COVID (eg. Fever, cough, shortness of breath)?->No What is the reason for testing?->Bed placement or semi-private room (Rapid) ??Interpretive data: Synonyms for this test include: PCR and NAAT . ??This test is performed using the [employer] Xpert Xpress plus assay. This is a real-time RT-PCR test intended for the qualitative detection of nucleic acid from the SARS-CoV-2. This assay has been reviewed by the FDA for Emergency Use Authorization (EUA). The performance characteristics have been verified by the performing laboratory. Results must be considered in the clinical context and a negative result does not rule out infection. Interpretive data last revised September 21, 2021. ??Interpretive data: Synonyms for this test include: PCR and NAAT . ??This test is performed using the [employer] Xpert Xpress plus assay. This is a real-time RT-PCR test intended for the qualitative detection of nucleic acid from the SARS-CoV-2. This assay has been reviewed by the FDA for Emergency Use Authorization (EUA). The performance characteristics have been verified by the performing laboratory. Results must be considered in the clinical context and a negative result does not rule out infection. Interpretive data last revised September 21, 2021. us Nahomy Figueroa MD LAB MICROBIOLOGY - GEN ERAL ORDERABLES Final Result [facility] Department [place] [address] * XR Tibia Fibula Left 2 Views (10/07/2021 6:03 AM CDT) Anatomical Region Laterality Modality Lower Extremities, Lower Leg Left Com puted Radiography 10/07/2021 6:08 AM CDT Impressions 10/07/2021 9:44 AM CDT 2 views of the left tibia and fibula are submitted without comparison. No acute fracture or osseous erosion. Alignment is normal. Soft tissue swelling about the left calf. No soft tissue gas. No foreign body. Left knee osteoarthritis. Dictated by: Myla Mckeon M.D. The radiology attending physician has personally reviewed this study, and had reviewed and/or edited this written report and agrees with it. Electronically signed by: Nighat Hernandez M.D. Narrative 10/07/2021 9:44 AM CDT EXAMINATION: ??XR TIBIA FIBULA LEFT 2 VIEWS HISTORY: ??Animal bite to left lower extremity 2 weeks ago. Procedure Note Nighat Hernandez MD - 10/07/2021 EXAMINATION: XR TIBIA FIBULA LEFT 2 VIEWS HISTORY: Animal bite to left lower extremity 2 weeks ago. IMPRESSION: 2 views of the left tibia and fibula are submitted without comparison. No acute fracture or osseous erosion. Alignment is normal. Soft tissue swelling about the left calf. No soft tissue gas. No foreign body. Left knee osteoarthritis. Dictated by: Myla Mckeon M.D. The radiology attending physician has personally reviewed this study, and had reviewed and/or edited this written report and agrees with it. Electronically signed by: Nighat Hernandez M.D. Breana Rodríguez MD IMG XR PROCEDURES Final Result * (ABNORMAL) eGFR (10/07/2021 3:21 AM CDT) [facility] eGFR 69(L) 90 - 130 mL/min/1. 73 m2 [facility] Comment: Interpretive Data Reference Interval Normal ?>/= 90 mL/min/1.73m2 Mildly decreased* ? 60 - 89 mL/min/1.73m2 Mildly to moderately decreased ?45 - 59 mL/min/1.73m2 Moderately to severely decreased ??30 - 44 mL/min/1.73m2 Severely decreased ?15 - 29 mL/min/1.73m2 Kidney Failure ?< 15 ??mL/min/1.73m2 *Relative to young adult level Estimated glomerular filtration rate is determined by the 2020 CKD-EPI equation recommended by the National [employer] (A Unifying Approach to GFR Estimation: Recommendations of the NKF-ASK Task Force on Reassessing the Inclusion of Race in Diagnosing Kidney Disease, JASN 2020). The CKD-EPI equation should not be used for patients with unstable renal function and has not been validated in children and those over 70. Current interpretive data was last reviewed 2021. Blood 10/07/2021 3:21 AM CDT 10/07/2021 3:34 AM CDT us Baldev Beckham MD LAB BLOOD ORDERABLES F inal Result [facility] Department [place] [address] * Differential, auto (10/07/2021 3:21 AM CDT) Pathologist [facility] Neutrophil abs 3.1 1.7 - 6.5 K/cumm [facility] Imm gran abs 0.0 0.0 - 0.1 K/cumm [facility] Lymphocyte abs 2.3 0.8 - 3.3 K/cumm [facility] Monocyte abs 0.6 0.2 - 0.8 K/cumm [facility] Eosinophil abs 0.4 0.0 - 0.5 K/cumm [facility] Basophil abs 0.0 0.0 - 0.1 K/cumm [facility] Neutrophil pct 48.5 % [facility] Comment: Interpretive Data Percent cell count reference ranges are not reported, since discordance with absolute values may lead to misinterpretation of CBC data. Current Interpretive Data was last revised on 2017. Imm gran pct 0.3 % [facility] Comment: Interpretive Data Percent cell count reference ranges are not reported, since discordance with absolute values may lead to misinterpretation of CBC data. Current Interpretive Data was last revised on 2017. Lymphocyte pct 35.6 % [facility] Comment: Interpretive Data Percent cell count reference ranges are not reported, since discordance with absolute values may lead to misinterpretation of CBC data. Current Interpretive Data was last revised on 2017. Monocyte pct 8.6 % [facility] Comment: Interpretive Data Percent cell count reference ranges are not reported, since discordance with absolute values may lead to misinterpretation of CBC data. Current Interpretive Data was last revised on 2017. Eosinophil pct 6.7 % [facility] Comment: Interpretive Data Percent cell count reference ranges are not reported, since discordance with absolute values may lead to misinterpretation of CBC data. Current Interpretive Data was last revised on 2017. Basophil pct 0.3 % [facility] Comment: Interpretive Data Percent cell count reference ranges are not reported, since discordance with absolute values may lead to misinterpretation of CBC data. Current Interpretive Data was last revised on 2017. Blood 10/07/2021 3:21 AM CDT 10/07/2021 3:34 AM CDT us Baldev Beckham MD LAB BLOOD ORDERABLES F inal Result [facility] Department [place] [address] * CRP (acute phase) (10/07/2021 3:21 AM CDT) CRP 4.2 <=10.0 mg/L [facility] Blood 10/07/2021 3:21 AM CDT 10/07/2021 3:34 AM CDT Baldev Beckham MD LAB BLOOD ORDERABLES F inal Result [facility] [place] [address] * Erythrocyte sedimentation rate (10/07/2021 3:21 AM CDT) Pathologist [facility] Erythrocyte sedimentation rate 30 1 - 30 mm/hr [facility] Blood 10/07/2021 3:21 AM CDT 10/07/2021 3:34 AM CDT Baldev Beckham MD LAB BLOOD ORDERABLES F inal Result Performing Organization Address [facility] de Phone Number [facility] Department [place] [address] * Basic metabolic panel (10/07/2021 3:21 AM CDT) Pathologist [facility] Sodium 141 135 - 145 mmol/L [facility] Potassium, pl 4.2 3.3 - 4.9 mmol/L [facility] Chloride 102 97 - 110 mmol/L [facility] CO2 30 22 - 32 mmol/L [facility] Anion gap 9 2 - 15 mmol/L [facility] BUN 19 8 - 25 mg/dL [facility] Creatinine 0.97 0.60 - 1.10 mg/dL [facility] Glucose 100 70 - 199 mg/dL [facility] Comment: Interpretive Data Fasting glucose >/= 126 [...] interpretive data was last revised 2017. Calcium 9.3 8.5 - 10.3 mg/dL [facility] Blood 10/07/2021 3:21 AM CDT 10/07/2021 3:34 AM CDT Baldev Beckham MD LAB BLOOD ORDERABLES F inal Result Performing Organization Address City/[facility]/ZIP Co de Phone Number [facility] [employer] [place] [address] * (ABNORMAL) CBC with auto differential (10/07/2021 3:21 AM CDT) [facility] WBC 6.4 3.8 - 9.9 K/cumm [facility] Hgb 14.1 11.9 - 15.5 g/dL [facility] Hct 43.9 35.6 - 45.5 % [facility] Plt 269 150 - 400 K/cumm [facility] MPV 9.8 9.1 - 12.3 fL [facility] RBC 4.91 3.90 - 5.20 M/cumm [facility] MCV 89.4 81.3 - 96.4 fL [facility] MCH 28.7 27.1 - 33.3 pg [facility] MCHC 32.1(L) 32.3 - 35.7 g/dL [facility] RDW CV 12.9 11.1 - 14.9 % [facility] RDW SD 42.5 35.7 - 48.1 fL [facility] NRBC abs 0.00 0.00 - 0.01 K/cumm [facility] Blood 10/07/2021 3:21 AM CDT 10/07/2021 3:34 AM CDT Baldev Beckham MD LAB BLOOD ORDERABLES F inal Result Performing Organization Address City/[facility]/ZIP Co de Phone Number [facility] [place] [place] [address] documented in this encounter Visit Diagnoses Diagnosis Animal bite- Primary Open wound(s) (multiple) of unspecified site(s), without mention of complication Cat bite of left lower leg, initial encounter Cellulitis Cellulitis and abscess of unspecified site Class 3 severe obesity in adult (HCC) documented in this encounter Admitting Diagnoses Diagnosis Animal bite Open wound(s) (multiple) of unspecified site(s), without mention of complication Cellulitis Cellulitis and abscess of unspecified site documented in this encounter Administered Medications Inactive Administered Medications - up to 3 most recent administrations Medication Order MAR Action Action Date Dose Rate Site cefTRIAXone (ROCEPHIN) 1,000 mg/10 mL in sterile water (premix) 1,000 mg 1,000 mg, intravenous, at 600 mL/hr, Administer over 1 Minutes, Once, On Sun10/07/21 at 0610, For 1 dose, Indications: Skin/Soft Tissue InfectionIndications:Skin/S oft Tissue Infection Given 10/07/2021 8:27 AM CDT 1,000 mg 600 mL/hr cefTRIAXone (ROCEPHIN) 1,000 mg/10 mL in sterile water (premix) 1,000 mg 1,000 mg, intravenous, at 600 mL/hr, Administer over 1 Minutes, Every 24 hours scheduled, First dose on Sun10/08/21 at 0900, Indications: Skin/Soft Tissue InfectionIndications:Skin/S oft Tissue Infection Given 10/09/2021 9:48 AM CDT 1,000 mg 600 mL/hr Given 10/08/2021 10:04 AM CDT 1,000 mg 600 mL/hr collagenase (SANTYL) 250 unit/gram ointment topical, Daily, First dose on Sun10/09/21 at 0900, Apply to affected area: wound enoxaparin (LOVENOX) syringe 40 mg 40 mg, subcutaneous, Every 12 hours scheduled, First dose on Sun10/07/21 at 1315, Indications: Deep Vein Thrombosis PreventionIndications:Deep Vein Thrombosis Prevention Given 10/09/2021 9:49 AM CDT 40 mg Left Lower Abdomen Given 10/08/2021 7:58 PM CDT 40 mg Le ft Lower Abdomen Given 10/08/2021 10:04 AM CDT 40 mg L eft Lower Abdomen HYDROcodone-acetaminophen (NORCO) 5-325 mg per tablet 1 tablet 1 tablet, oral, Every 4 hours PRN, 1st line for pain, Starting on Sun10/07/21 at 1236, Indications: PainIndications:Pain Given 10/09/2021 9:59 AM CDT 1 tablet Given 10/09/2021 12:28 AM CDT 1 tablet Given 10/08/2021 8:09 PM CDT 1 tablet lidocaine PF (XYLOCAINE) 10 mg/mL (1 %) preservative free injection - ADS Override Pull Starting on 10/08/21 at 1906, For 1 dose, Created by cabinet override Given 10/08/2021 7:34 PM CDT 20 mg lidocaine PF (XYLOCAINE) 10 mg/mL (1 %) preservative free injection - ADS Override Pull Starting on Sun10/08/21 at 1908, For 1 dose, Created by cabinet override Given 10/08/2021 7:33 PM CDT 20 mg metroNIDAZOLE (FLAGYL) 500 mg/100 mL in sodium chloride (premix) 500 mg 500 mg, intravenous, at 200 mL/hr, Administer over 30 Minutes, Every 8 hours scheduled, First dose on Sun10/07/21 at 0610, Room temperature only, Indications: Skin/Soft Tissue InfectionIndications:Skin/Soft Tissue Infection New Bag 10/09/2021 6:35 AM CDT 500 mg 200 mL/hr New Bag 10/08/2021 9:53 PM CDT 500 mg 200 mL/hr New Bag 10/08/2021 2:00 PM CDT 500 mg 200 mL/hr morphine injection 2 mg 2 mg, intravenous, Administer over 4 Minutes, Every 4 hours PRN, 2nd line for pain, Starting on Sun10/07/21 at 1236 Given 10/09/2021 6:39 AM CDT 2 mg Given 10/09/2021 2:30 AM CDT 2 mg Given 10/08/2021 7:31 PM CDT 2 mg morphine injection 4 mg 4 mg, intravenous, Administer over 4 Minutes, Once, On Sun10/07/21 at 0536, For 1 dose Given 10/07/2021 5:48 AM CDT 4 m g sodium chloride 0.9% flush 0.5-20 mL 0.5-20 mL, intra-catheter, Every 8 hours scheduled, First dose on Sun10/07/21 at 1400, Flush volume based on line type and size. Given 10/09/2021 9:51 AM CDT 10 mL Given 10/08/2021 7:59 PM CDT 10 mL Given 10/08/2021 12:46 PM CDT 10 mL vancomycin 1,750 mg/517.5 mL sodium chloride 0.9% (premix) 1,750 mg 1,750 mg (rounded from 1,768.5 mg = 15 mg/kg ? 117.9 kg), intravenous, Administer over 120 Minutes, Every 12 hours, First dose on Sun10/07/21 at 1315, Indications: Skin/Soft Tissue InfectionIndications:Skin/Soft Tissue Infection New Bag 10/09/2021 1:15 AM CDT 1,750 mg New Bag 10/08/2021 12:46 PM CDT 1,750 mg New Bag 10/08/2021 1:02 AM CDT 1,750 mg documented in this encounter Discontinued Medications Medication Sig Discontinue Reason Start Date End Da te albuterol 5 mg/mL nebulizer solutionIndications:A cute Asthma Attack Take 0.5 mL (2.5 mg total) by nebulization every 6 (six) hours as needed for wheezing 12/21/2020 10/07/2021 predniSONE (DELTASONE) 10 mg tablet Take 6 tablets oral daily for 3 days then 5 tablets daily for 3 days 4 tablets daily for 3 days then 3 tablets daily for 3 days then 2 tablets daily for 1 day then 1 tablet daily for 1 day then stop. 12/21/2020 10/07/2021 clobetasoL (TEMOVATE) 0.05 % ointmentIndications:N ecrobiosis lipoidica Apply thin layer to AA R bonilla BID PRN rash 08/31/2020 10/07/2021 documented as of this encounter Active and Recently Administered Medications Times are shown in CDT. Scheduled Medication Order 10/07/2021 10/08/2021 10/09/2021 cefTRIAXone (ROCEPHIN) 1,000 mg/10 mL in sterile water (premix) 1,000 mg (COMPLETED) 1,000 mg, intravenous, at 600 mL/hr, Administer over 1 Minutes, Once, On Sun10/07/21 at 0610, For 1 dose, Indications: Skin/Soft Tissue Infection 0827 (Given - Provider: Toya Gipson RN) cefTRIAXone (ROCEPHIN) 1,000 mg/10 mL in sterile water (premix) 1,000 mg 1,000 mg, intravenous, at 600 mL/hr, Administer over 1 Minutes, Every 24 hours scheduled, First dose on Sun10/08/21 at 0900, Indications: Skin/Soft Tissue Infection 1004 (Given - Provider: Pavithra Corey RN) 0948 (Given - Provider: Kei Sims) collagenase (SANTYL) 250 unit/gram ointment topical, Daily, First dose on Sun10/09/21 at 0900, Apply to affected area: wound 0900 (Due) enoxaparin (LOVENOX) syringe 40 mg 40 mg, subcutaneous, Every 12 hours scheduled, First dose on Sun10/07/21 at 1315, Indications: Deep Vein Thrombosis Prevention 1415 (Given - Provider: Lesley Ruiz RN)2105 (Given - Provider: Geneva Rojo RN) 1004 (Given - Provider: Pavithra Corey RN)1958 (Given - Provider: Minda Martinez, RAMON) 0949 (Given - Provider: Kei Sims) metroNIDAZOLE (FLAGYL) 500 mg/100 mL in sodium chloride (premix) 500 mg 500 mg, intravenous, at 200 mL/hr, Administer over 30 Minutes, Every 8 hours scheduled, First dose on Sun10/07/21 at 0610, Room temperature only, Indications: Skin/Soft Tissue Infection 0827 (New Bag - Provider: Toya Gipson RN)1416 (New Bag - Provider: Lesley Ruiz RN)2236 (New Bag - Provider: Geneva Rojo RN) 0506 (New Bag - Provider: Mark Espana RN)1400 (New Bag - Provider: Pavithra Corey RN)1430 (Stopped - Provider: Pavithra Corey RN)2153 (New Bag - Provider: Minda Martinez, RAMON)2230 (Stopped - Provider: Minda Martinez, RAMON) 0635 (New Bag - Provider: Minda Martinez RN) morphine injection 4 mg (COMPLETED) 4 mg, intravenous, Administer over 4 Minutes, Once, On Sun10/07/21 at 0536, For 1 dose 0548 (Given - Provider: Mamta Galicia, RAMON) sodium chloride 0.9% flush 0.5-20 mL 0.5-20 mL, intra-catheter, Every 8 hours scheduled, First dose on Sun10/07/21 at 1400, Flush volume based on line type and size. 1416 (Given - Provider: Lesley Ruiz, RAMON)2236 (Given - Provider: Geneva Rojo, RAMON) 0506 (Given - Provider: Mark Espana RN)1246 (Given - Provider: Pavithra Corey, RAMON)1959 (Given - Provider: Minda Martinez, RAMON) 0951 (Given - Provider: Kei Sims) vancomycin 1,750 mg/517.5 mL sodium chloride 0.9% (premix) 1,750 mg 1,750 mg (rounded from 1,768.5 mg = 15 mg/kg ? 117.9 kg), intravenous, Administer over 120 Minutes, Every 12 hours, First dose on Sun10/07/21 at 1315, Indications: Skin/Soft Tissue Infection 1315 (New Bag - Provider: Mark Espana RN) 0102 (New Bag - Provider: Mark Espana RN)1246 (New Bag - Provider: Pavithra Corey RN)1400 (Stopped - Provider: Pavithra Corey RN) 0115 (New Bag - Provider: Minda Martinez RN)0345 (Stopped - Provider: Minda Martinez RN)1315 (Due) PRN Medication Order 10/07/2021 10/08/2021 10/09/2021 Carrier Fluids for Secondary Infusion - 0.9% Sodium Chloride 30 mL, intravenous, As needed, For priming tubing and/or flushing, Starting on Sun10/07/21 at 1236, 0-250 ml/hr to flush line after IV infusions when no maintenance IV ordered. Infuse 30mL at the same rate as the secondary infusion. Run as primary IV, not intended for KVO. HYDROcodone-acetaminop hen (NORCO) 5-325 mg per tablet 1 tablet 1 tablet, oral, Every 4 hours PRN, 1st line for pain, Starting on Sun10/07/21 at 1236, Indications: Pain 1415 (Given - Provider: Lesley Ruiz, RN)2110 (Given - Provider: Geneva Rojo, RAMON) 0547 (Given - Provider: Mark Espana, RAMON)1024 (Given - Provider: Pavithra Corey, RAMON)1424 (Given - Provider: Pavithra Corey RN)2008 (Given - Provider: Minda Martinez RN) 0028 (Given - Provider: Minda Martinez, RAMON)0959 (Given - Provider: Kei Sims) morphine injection 2 mg 2 mg, intravenous, Administer over 4 Minutes, Every 4 hours PRN, 2nd line for pain, Starting on Sun10/07/21 at 1236 1931 (Given - Provider: Minda Martinez RN) 0230 (Given - Provider: Minda Martinez RN)0639 (Given - Provider: Minda Martinez RN) sodium chloride 0.9% flush 0.5-20 mL 0.5-20 mL, intra-catheter, As needed, line care, Starting on Sun10/07/21 at 1236, Flush volume based on line type and size. Flush before and after each use. No Frequency Medication Order 10/07/2021 10/08/2021 10/09/2021 lidocaine PF (XYLOCAINE) 10 mg/mL (1 %) preservative free injection - ADS Override Pull (COMPLETED) Starting on 10/08/21 at 1906, For 1 dose, Created by [email or web address] override 193 (Given - Provider: Sandi Martinez RN) lidocaine PF (XYLOCAINE) 10 mg/mL (1 %) preservative free injection - ADS Override Pull (COMPLETED) Starting on 10/08/21 at 1908, For 1 dose, Created by dwight override 193 (Given - Provider: Sandi Martinez RN - Comment: surgery wound debreedment tot 80mg used) documented in this encounter Orders Medications Ordered That Aneudy ht Not Have Been Administered Count Last Ordered Date First Ordered Date collagenase (SANTYL) 250 uni t/gram ointment 1 10/08/2021 Carrier Fluids for Secondary Infusion - 0.9% Sodium Chloride 1 10/07/2021 sodium chloride 0.9% flush 0.5-20 mL 1 09/21 Diet Count Last Ordered Date First Orde red Date ADULT DISCHARGE DIET 1 10/09/2021 Nursing Count Last Ordered Date First Orde red Date DISCHARGE ACTIVITY 1 10/09/2021 DISCHARGE DRESSING 1 10/09/2021 DISCHARGE INSTRUCTIONS 1 10/09/2021 Consult Count Last Ordered Date First Orde red Date IP CONSULT TO GENERAL SURGERY 1 10/08/2021 Admission Count Last Ordered Date First Orde red Date INITIATE OBSERVATION SERVICES 1 10/07/2021 Discharge Count Last Ordered Date First Orde red Date DISCHARGE PATIENT 1 10/09/2021 documented in this encounter Care Teams Tight Cooper Relationship Specialty Start Date End Date Janiya Trotter GLASSWARE SELECTOR [address] [place] [address] PCP - General Internal Medicine 10/07/21 documented as of this encounter
--- OUTSIDE RECORDS SUMMARY | 2024-05-04 17:07 | XMS_ITS | Encounter Summary ---
Author Organization [facility] Healthcare Address [address] [place] [address] Care Team Providers Care Tong Hooker Name Role Phone Janiya Trotter NP Primary Care Provider [phone] Reason for Visit * Reason Comments Chest Pain Encounter Details Date Type Department Care Team (Late st Contact Info) Description 12/15/2021 9:12 AM CDT - 12/15/2021 1:21 PM CDT Emergency [facility] Emergency Department [address] [place] [address] Yung Saldana MD [address] [address] [place] [address] Chest pain, unspecified type (Primary Dx) Discharge Disposition: Discharge to home [...] on file Legal Sex Female 5:11 AM SUPERVISING DEPUTY Gender Identity Not on file Sexual Orientation [...] Mass Index 40.72 12/15/2021 9:03 AM CDT documented in this encounter Discharge Instructions * Discharge Instructions* Dottie Ford MD - 12/15/2021 1:09 PM CDT You were seen in the emergency department for chest pain. We obtained lab tests, an EKG, and a chest x-ray, which did not show any concerning findings. Your symptoms are most likely due to a musculoskeletal cause. Take ibuprofen daily for the next week to determine if this is helping your symptoms,then follow up with your PCP for further instructions. We will also send you home with a prescription for lidocaine patches as needed for pain. Return to the emergency department if you develop any new or worsening symptoms such as worsening chest pain/shortness of breath, passing out, etc. * Attachments The following attachments cannot be sent through Care Everywhere. * Chest Pain (AfterCare(R) Instructions(ER/ED)) ([place]) documented in this encounter Medications at Time of Discharge collagenase (SANTYL) ointment Apply topically daily 30 g 1 10/09/2021 HYDROcodone-acet aminophen (NORCO) 5-325 mg per tabletIndication s:Pain Take 1 tablet by mouth every 4 (four) hours as needed for pain (use before dressing changes) 10 tablet 10/09/2021 lidocaine (ASPERCREME) 4 % adhesive patch,medicated Place 1 patch on the skin daily as needed (pain) 10 patch 12/15/2021 ibuprofen (ADVIL,MOTRIN) 600 mg tablet Take 1 tablet (600 mg total) by mouth every 6 (six) hours as needed for pain 120 tablet 12/15/2021 2 documented as of this encounter Ordered Prescriptions Prescription Sig Dispense Quantity Refills Last Filled Start Date End Date lidocaine (ASPERCREME) 4 % adhesive patch,medicated Place 1 patch on the skin daily as needed (pain) 10 patch 12/15/2021 ibuprofen (ADVIL,MOTRIN) 600 mg tablet Take 1 tablet (600 mg total) by mouth every 6 (six) hours as needed for pain 120 tablet 12/15/2021 01/14/2022 documented in this encounter Discharge Disposition Disposition Code Departure Means Destination Discharge to home or self care documented in this encounter ED Notes * Dottie Ford MD - 12/15/2021 12:56 PM CDT HPI Chief Complaint Patient presents with ??? Chest Pain Patient is a 56-year-old female with PMHx obesity who presents for evaluation of chest pain. Patient reports several months of constant, nonradiating chest heaviness with intermittent sharp, stabbingleft-sided chest pain radiating to her left shoulder that is worse with movement. Chest heaviness rated 3 to 4/10, and chest sharpness rated 7/10. Patient states that she called her primary care doctor for an appointment and was directed to the emergency department for further evaluation. Also reports worsening shortness of breath on exertion, which she states may be attributable to deconditioning. Also reports lower extremity edema and occasional lightheadedness that is not particularly correla padmini with her chest pain or shortness of breath. Denies any recent nausea, vomiting, diarrhea, abdominal pain. No diaphoresis. No other recent symptoms of illness. No known cardiac history. Patient History: Patient Active Problem List Diagnosis Date Noted ??? Animal bite 10/07/2021 ??? Cellulitis 10/07/2021 ??? Class 3 severe obesity in adult (CMS/HCC) (HCC) 10/07/2021 ??? Surgical follow-up care 09/17/2013 ??? Acne 09/04/2013 ??? Rash 09/04/2013 Past Medical History: Diagnosis Date ??? Asthma History reviewed. No pertinent surgical history. Family History Problem Relation Age of Onset ??? Heart attack Mother ??? Hypertension Other Family history of hypertension - (Added by TW Conv) Social History Tobacco Use ??? Smoking status: Former Smoker ??? Smokeless tobacco: Never Used Substance and Sexual Activity ??? Drug use: Never ??? Sexual activity: None Alcohol Use: Not At Risk ??? Frequency of Alcohol Consumption: Never ??? Average Number of Drinks: Patient does not drink ??? Frequency of Binge Drinking: Never Social History Social History Narrative ??? Not on file Review of Systems Review of Systems Constitutional: Negative for chills and fever. HENT: Negative for congestion and rhinorrhea. Eyes: Negative for redness. Respiratory: Positive for shortness of breath. Negative for cough. Cardiovascular: Positive for chest pain and leg swelling. Gastrointestinal: Negative for abdominal pain, diarrhea, nausea and vomiting. Genitourinary: Negative for dysuria. Musculoskeletal: Negative for back pain. Skin: Negative for rash. Allergic/Immunologic: Negative for food allergies. Neurological: Positive for light-headedness. Hematological: Does not bruise/bleed easily. Physical Exam ED Triage Vitals [12/15/21 0903] Temp Pulse Resp BP SpO2 36.6 ??C (97.9 ??F) 86 20 127/80 96 % Temp src Heart Rate Source Patient Position BP Location FiO2 (%) Oral -- -- -- -- Height Height Method Weight Weight Method 1.702 m (5' 7 ) Stated 117.9 kg (260 lb) Stated Physical Exam Vitals and nursing note reviewed. Constitutional: General: She is not in acute distress. Appearance: She is well-developed. HENT: Head: Normocephalic and atraumatic. Nose: No congestion or rhinorrhea. Mouth/Throat: Mouth: Mucous membranes are moist. Eyes: Conjunctiva/sclera: Conjunctivae normal. Cardiovascular: Rate and Rhythm: Normal rate and regular rhythm. Heart sounds: Normal heart sounds. No murmur heard. Comments: Tenderness to palpation on the chest wall overlying the sternum Pulmonary: Effort: Pulmonary effort is normal. No respiratory distress. Breath sounds: Normal breath sounds. Abdominal: General: There is no distension. Palpations: Abdomen is soft. Tenderness: There is no abdominal tenderness. There is no guarding. Musculoskeletal: Cervical back: Neck supple. Comments: Pain with range of motion of the shoulder on the left; 2+ radial pulse, full range of motion of digits of hand, sensation intact throughout Skin: General: Skin is warm and dry. Neurological: Mental Status: She is alert and oriented to person, place, and time. Comments: Moving all extremities spontaneously, sensation grossly intact Psychiatric: Comments: Calm, cooperative MDM Patient is a 56-year-old female with PMHx obesity who presents for evaluation of chest pain. Reporting a several months of constant chest heaviness with intermittent sharp left-sided chest pain. Alsoreporting some exertional shortness of breath and lower extremity edema. Was referred to the ED by her primary care provider. On arrival, patient is afebrile with vitals within normal limits. On exam, cardiopulmonary exam is benign, and abdomen is soft and nontender. Patient has no notable peripheral edema. She does have some reproducible chest wall tenderness to palpation and shoulder pain is rep roducible on range of motion as well. Differential diagnosis is most likely musculoskeletal chest pain; lower likelihood of ACS, arrhythmia, electrolyte abnormality, pneumonia, pneumothorax but will obtain screening labs and chest x- ray, EKG. Plan: Labs, EKG, chest x-ray, pain control, reassess Dispo: Per above Attending Summary of Care Chest pain, unspecified type Dottie Ford MD Resident 12/15/21 1311 Cosigned by Yung Saldana MD at 12/16/2021 2:02 PM CDT Associated attestation - Yung Saldana MD - 12/16/2021 2:02 PM CDT I have seen and examined the patient on 12/15/2021. I agree with the findings and plan of care as documented in the resident's note. * Alecia Hatch RN - 12/15/2021 9:12 AM CDT Bed: [id number] Expected date: Expected time: Means of arrival: Car Comments: Alecia Hatch RN 12/15/21 0912 * Sheri Sims RN - 12/15/2021 9:04 AM CDT Patient c/o medial chest pressure intermittently occurring over last month. Endorses SOB when this occurs. No hx MT/CVA. Endorses productive cough with clear sputum unchanged from baseline per patient. Denies ROSE, vision changes, dizziness. documented in this encounter Miscellaneous Notes * ED Procedure Note - Yung Saldana MD - 12/15/2021 11:28 AM CDTAssociated Order(s): ECG 12 lead Procedure ECG 12 lead Date/Time: 12/15/2021 11:28 AM Performed by: Yung Saldana MD Authorized by: Yung Saldana MD Quality: Tracing quality: Limited by artifact Rate: ECG rate: 85 ECG rate assessment: normal Rhythm: Rhythm: sinus rhythm Ectopy: Ectopy: none QRS: QRS axis: Normal QRS intervals: Normal Conduction: Conduction: normal ST segments: ST segments: Normal Previous ECG: Previous ECG: Unavailable Interpretation: Interpretation: normal Recommended Follow-up: Recommended follow up: further workup in the ED Yung Saldana MD 12/15/21 1129 documented in this encounter Plan of Treatment Not on file documented as of this encounter Procedures Procedure Name Priority Date/Time Associated Diagnosis Comments ECG 12-LEAD STAT 12/15/2021 11:28 AM CDT TROPONIN I HIGH-SENSITIVITY 2-HOUR Timed 12/15/2021 11:26 AM CDT XR CHEST PA LATERAL 2 VIEWS ED 12/15/2021 10:30 AM CDT TROPONIN I HIGH-SENSITIVITY SERIES (BASELINE, 2HR, 4HR, 6HR) STAT 12/15/2021 9:45 AM CDT EGFR STAT 12/15/2021 9:45 AM CDT DIFFERENTIAL AUTO STAT 12/15/2021 9:4 5 AM CDT CBC WITH AUTO DIFFERENTIAL STAT 12/15/2021 9:45 AM CDT COMPREHENSIVE METABOLIC PANEL STAT 12/15/2021 9:45 AM CDT documented in this encounter Results * ECG 12-LEAD (12/15/2021 11:28 AM CDT) Narrative [facility] - 12/15/2021 11:28 AM CDT Yung Saldana MD ? 12/15/2021 11:29 AM ECG 12 lead Date/Time: 12/15/2021 11:28 AM Performed by: Yung Saldana MD Authorized by: Yung Saldana MD Quality: ??Tracing quality: ??Limited by artifact Rate: ??ECG rate: ??85 ??ECG rate assessment: normal ?? Rhythm: ??Rhythm: sinus rhythm ?? Ectopy: ??Ectopy: none ?? QRS: ??QRS axis: ??Normal ??QRS intervals: ??Normal Conduction: ??Conduction: normal ?? ST segments: ??ST segments: ??Normal Previous ECG: ??Previous ECG: ??Unavailable Interpretation: ??Interpretation: normal ?? Recommended Follow-up: ??Recommended follow up: further workup in the ED ?? us Yung Saldana MD ECG ORDERABLES Final Resul t [facility] * Troponin I high-sensitivity 2-hour (12/15/2021 11:26 AM CDT) Trop I hs <4 <=17 ng/L [facility] Comment: Interpretive Data For further hscTnI resources including the diagnostic algorithm and an aid in interpretation, copy and paste this link: https://bjhlab.testcatalog.org/show/hsTrop-1 Current Interpretive Data last revised 2019. Trop I hs delta 0 ng/L [facility] Trop I hs interp Insignificant [facility] Blood 12/15/2021 11:2 6 AM CDT 12/15/2021 11:38 AM CDT us Tank Duarte MD LAB BLOOD ORDERABLES Final Result [facility] Department [place] [address] * XR Chest Pa Lateral 2 Views (12/15/2021 10:30 AM CDT) Anatomical Region Laterality Modality Body, Chest N/A Computed Radiogr aphy 12/15/2021 10:3 4 AM CDT Impressions 12/15/2021 10:34 AM CDT The heart and mediastinum are normal. The pleural spaces are normal. The lungs are clear. Electronically signed by: Chris Subramanian M.D. Narrative 12/15/2021 10:34 AM CDT EXAMINATION: 2 view chest radiograph COMPARISON: 12/21/2020 INDICATION: chest pain Procedure Note Chris Subramanian MD - 12/15/2021 EXAMINATION: 2 view chest radiograph COMPARISON: 12/21/2020 INDICATION: chest pain IMPRESSION: The heart and mediastinum are normal. The pleural spaces are normal. The lungs are clear. Electronically signed by: Chris Subramanian M.D. us Yung Saldana MD IMG XR PROCEDURES Final Res ult * (ABNORMAL) eGFR (12/15/2021 9:45 AM CDT) [facility] eGFR 69(L) 90 - 130 mL/min/1. 73 m2 [facility] Comment: Interpretive Data Reference Interval Normal ?>/= [...] interpretive data was last reviewed 2021. Blood 12/15/2021 9:45 AM CDT 12/15/2021 10:08 AM CDT us Yung Saldana MD LAB BLOOD ORDERABLES Final Result Performing Organization Address City/State/[facility] Co de Phone Number [facility] Department [place] [address] * Differential, auto (12/15/2021 9:45 AM CDT) Neutrophil abs 3.0 1.7 - 6.5 K/cumm [facility] Imm gran abs 0.0 0.0 - 0.1 K/cumm [facility] Lymphocyte abs 2.2 0.8 - 3.3 K/cumm [facility] Monocyte abs 0.5 0.2 - 0.8 K/cumm [facility] Eosinophil abs 0.4 0.0 - 0.5 K/cumm [facility] Basophil abs 0.0 0.0 - 0.1 K/cumm [facility] Neutrophil pct 49.0 % [facility] Comment: Interpretive Data Percent cell count reference ranges are not reported, since discordance with absolute values may lead to misinterpretation of CBC data. Current Interpretive Data was last revised on 2017. Imm gran pct 0.3 % [facility] Comment: Interpretive Data Percent cell count reference ranges are not reported, since discordance with absolute values may lead to misinterpretation of CBC data. Current Interpretive Data was last revised on 2017. Lymphocyte pct 35.9 % [facility] Comment: Interpretive Data Percent cell count reference ranges are not reported, since discordance with absolute values may lead to misinterpretation of CBC data. Current Interpretive Data was last revised on 2017. Monocyte pct 7.8 % [facility] Comment: Interpretive Data Percent cell count reference ranges are not reported, since discordance with absolute values may lead to misinterpretation of CBC data. Current Interpretive Data was last revised on 2017. Eosinophil pct 6.7 % [facility] Comment: Interpretive Data Percent cell count reference ranges are not reported, since discordance with absolute values may lead to misinterpretation of CBC data. Current Interpretive Data was last revised on 2017. Basophil pct 0.3 % [facility] Comment: Interpretive Data Percent cell count reference ranges are not reported, since discordance with absolute values may lead to misinterpretation of CBC data. Current Interpretive Data was last revised on 2017. Blood 12/15/2021 9:45 AM CDT 12/15/2021 10:08 AM CDT us Yung Saldana MD LAB BLOOD ORDERABLES Final Result [facility] Department [place] [address] * Troponin I high-sensitivity series (baseline, 2hr, 4hr, 6hr) (12/15/2021 9:45 AM CDT) Trop I hs <4 <=17 ng/L [facility] Comment: Interpretive Data For further hscTnI resources including the diagnostic algorithm and an aid in interpretation, copy and paste this link: https://bjhlab.testcatalog.org/show/hsTrop-1 Current Interpretive Data last revised 2019. Blood 12/15/2021 9:45 AM CDT 12/15/2021 10:08 AM CDT us Yung Saldana MD LAB BLOOD ORDERABLES Final Result [facility] Department [place] [address] * Comprehensive metabolic panel (12/15/2021 9:45 AM CDT) Sodium 140 135 - 145 mmol/L [facility] Potassium, pl 4.2 3.3 - 4.9 mmol/L [facility] Chloride 102 97 - 110 mmol/L [facility] CO2 29 22 - 32 mmol/L [facility] Anion gap 9 2 - 15 mmol/L [facility] BUN 17 8 - 25 mg/dL [facility] Creatinine 0.97 0.60 - 1.10 mg/dL [facility] Glucose 114 70 - 199 mg/dL [facility] Comment: Interpretive Data Fasting glucose >/= 126 [...] interpretive data was last revised 2017. Calcium 9.4 8.5 - 10.3 mg/dL [facility] Bilirubin, total 0.5 0.1 - 1.2 mg/dL [facility] Protein, pl 7.5 6.5 - 8.5 g/dL [facility] Albumin 4.2 3.5 - 5.0 g/dL [facility] Alk phos 70 40 - 130 Units/L [facility] ALT 20 7 - 45 Units/L [facility] AST 23 10 - 45 Units/L [facility] Blood 12/15/2021 9:45 AM CDT 12/15/2021 10:08 AM CDT Yung Saldana MD LAB BLOOD ORDERABLES Final Result Performing Organization Address City/[facility]/ZIP Co de Phone Number [facility] [place] [address] * (ABNORMAL) CBC with auto differential (12/15/2021 9:45 AM CDT) [facility] WBC 6.1 3.8 - 9.9 K/cumm [facility] Hgb 14.9 11.9 - 15.5 g/dL [facility] Hct 45.9(H) 35.6 - 45.5 % [facility] Plt 277 150 - 400 K/cumm [facility] MPV 10.1 9.1 - 12.3 fL [facility] RBC 5.09 3.90 - 5.20 M/cumm [facility] MCV 90.2 81.3 - 96.4 fL [facility] MCH 29.3 27.1 - 33.3 pg [facility] MCHC 32.5 32.3 - 35.7 g/dL [facility] RDW CV 12.9 11.1 - 14.9 % [facility] RDW SD 42.5 35.7 - 48.1 fL [facility] NRBC abs 0.00 0.00 - 0.01 K/cumm [facility] Blood (Blood, Venous) 12/15/2021 9:45 AM CDT 12/15/2021 10:08 AM CDT Yung Saldana MD LAB BLOOD ORDERABLES Final Result [facility] [place] [address] documented in this encounter Visit Diagnoses Diagnosis Chest pain, unspecified type- Primary documented in this encounter Administered Medications Inactive Administered Medications - up to 3 most recent administrations Medication Order MAR Action Action Date Dose Rate Site acetaminophen (TYLENOL) tablet 1,000 mg 1,000 mg, oral, Once, On Claudia 12/15/21 at 1023, For 1 dose Given 12/15/2021 11:00 AM CDT 1,000 mg aspirin chewable tablet 324 mg 324 mg, oral, Once, On Claudia 12/15/21 at 0905, For 1 dose, Indications: Chest PainIndications:Chest Pain Given 12/15/2021 9:50 AM CDT 324 mg ketorolac (TORADOL) 15 mg/mL injection 15 mg 15 mg, intravenous, Once, On Claudia 12/15/21 at 1222, For 1 dose, For Adult IV push, administer over 15 seconds Given 12/15/2021 12:24 PM CDT 15 mg lidocaine (LIDODERM) 5 % patch 1 patch 1 patch, transdermal, Administer over 12 Hours, Daily, First dose on Claudia 12/15/21 at 1222, Do not cover the holes on the top side of the patch., Apply to affected area: chest Medication Applied 12/15/2021 12:24 PM CDT 1 patch Left Shoulder documented in this encounter Active and Recently Administered Medications Times are shown in CDT. Scheduled Medication Order 12/13/2021 12/14/2021 12/15/2021 acetaminophen (TYLENOL) tablet 1,000 mg (COMPLETED) 1,000 mg, oral, Once, On Claudia 12/15/21 at 1023, For 1 dose 1100 (Given - Provid er: Darlyn Young RN) aspirin chewable tablet 324 mg (COMPLETED) 324 mg, oral, Once, On Claudia 12/15/21 at 0905, For 1 dose, Indications: Chest Pain 0950 (Given - Provid er: Darlyn Young RN) ketorolac (TORADOL) 15 mg/mL injection 15 mg (COMPLETED) 15 mg, intravenous, Once, On Claudia 12/15/21 at 1222, For 1 dose, For Adult IV push, administer over 15 seconds 1224 (Given - Provid er: Darlyn Young RN) lidocaine (LIDODERM) 5 % patch 1 patch 1 patch, transdermal, Administer over 12 Hours, Daily, First dose on Claudia 12/15/21 at 1222, Do not cover the holes on the top side of the patch., Apply to affected area: chest 1224 (Medication Simon lied - Provider: Darlyn Young RN)1321 (Due: Medication Removed - Provider: Automatic Discharge Provider - Comment: Time automatically adjusted from order being discontinued) documented in this encounter Orders Nursing Count Last Ordered Date First Orde red Date MISCELLANEOUS NURSING CARE ORDER (SPECIFY) 12/15/2021 IV Count Last Ordered Date First Orde red Date SALINE LOCK IV 1 12/15/2021 documented in this encounter Care Teams Tong Hooker Relationship Specialty Start Date End Date Janiya Trotter SHAKER SCREEN OPERATOR [address] [place] [address] PCP - General Internal Medicine 10/07/21 documented as of this encounter
--- OUTSIDE RECORDS SUMMARY | 2024-05-04 17:09 | XMS_ITS | Continuity of Care Document ---
Author Organization [facility] Address [address] [place] [address] [facility] [address] [place] [address] Phone Care Team Providers Care Automotive Welder Name Role Phone Humberto Bañuelos Unavailable Unavailable Procedures Procedure Date Office/outpatient Visit, New Advance Directives Directive Yes / No Effective Date File Name No Information Encounters Encounter Description Practice Location Reason(s) For Visit Diagnoses Date Provider Providers Copied on Encounter Office/outpat ient Visit, [facility], [address], [place], [place], [id number], tel:[phone] [facility] No Information 0 5-201 0 Sarmad Paul. [address] [facility] [address], [place], [address], [place]. tel:[phone] Family History Family Member Type Diagnosis Age At Onset No Information Payers Payer name Insurance type Covered libertarian ID Authoriza tion(s) Medicaid [facility] [id number] Social History Type Description Quantity Date Captured Comments Sex Female Smoking Status No Information Chief Complaint And Reason For Visit No Information Reason For Referral Reason For Referral No Information History Of Present Illness Encounter Date Complaint History Of Prese nt Illness No Information Functional Status Date Functional Assessmen t No Information Instructions Date Instruction Additional Infor mation No Information Assessments Type Assessment Date No Information Patient Care Teams Name Effective Dates (start - stop) Status Members No Information
--- OUTSIDE RECORDS SUMMARY | 2024-05-04 18:42 | XMS_ITS | Continuity of Care Document ---
Author Organization [facility] Address [address] [place] [address] [facility] [address] [place] [address] Phone Care Team Providers Care Client Relationship Manager Name Role Phone Humberto Bañuelos Unavailable Unavailable Procedures Procedure Date Office/outpatient Visit, New Advance Directives Directive Yes / No Effective Date File Name No Information Encounters Encounter Description Practice Location Reason(s) For Visit Diagnoses Date Provider Providers Copied on Encounter Office/outpat ient Visit, [facility], [address], [place], [place], [id number], tel:[phone] [facility] No Information [phone] Sarmad Paul. [address] [facility] [address] [address], [place], [address], [place]. tel:[phone] Family History Family Member Type Diagnosis Age At Onset No Information Payers Payer name Insurance type Covered alliance party ID Authoriza tion(s) Medicaid [facility] [id number] Social History Type Description Quantity Date Captured [...]
--- OUTSIDE RECORDS SUMMARY | 2024-05-04 18:42 | XMS_ITS | Encounter Summary ---
Author Organization [facility] Address Replaced by [facility] [place] [address] [place] [address] Care Team Providers Care Fusing Machine Feeder Name Role Phone Carmina Lopez MD Primary Care Provider + Reason for Visit * Reason Onset Date Comments Record Request 11/26/2023 Encounter Details Date Type Department Care Team (Late st Contact Info) Description 11/26/2023 Telephone [facility] Family Medicine [facility] [address] [facility] [address] [place] [address] [phone] Carmina Lopez MD [address] [id number] Record Request Social History Tobacco Use Types [...] 11/26/2023 10:58 AM CDT I have faxed [facility] for pap report documented in this encounter Plan of Treatment Not on file documented as of this encounter Visit Diagnoses Not on filedocumented in this encounter Care Teams Fusing Machine Feeder Relationship Specialty Start Date End Date Carmina Lopez MD [address] [facility] [address] [place] [address] PCP - General FAMILY PRACTICE 11/22/23 documented as of this encounter
--- OUTSIDE RECORDS SUMMARY | 2024-05-04 18:42 | XMS_ITS | Encounter Summary ---
Author Organization [facility] Address [address] [place] [address] Care Team Providers Care Aircraft Skin Burnisher Name Role Phone Unavailable Primary Care Provider Unavailabl e Encounter Details Date Type Department Care Team (Late st Contact Info) Description 05/10/2021 8:45 AM CENTER LEAD CONSULTANT Rapid Evaluation [place] [facility] Community Testing [address] [address] Social History Tobacco Use Types Packs/Day Years Used Date Smoking Tobacco: Never Assessed Comments Unknown Sex and Gender Information Value Date Recorded Sex Assigned at Not on file Legal Sex Female 8:31 AM CENTER LEAD CONSULTANT Gender Identity Not on file Sexual Orientation Not on file documented as of this encounter Plan of Treatment Not on file documented as of this encounter Visit Diagnoses Not on filedocumented in this encounter
--- OUTSIDE RECORDS SUMMARY | 2024-05-04 18:42 | XMS_ITS | Encounter Summary ---
Author Organization [facility] Address [address] [place] [address]. [place], [place] [address] [place] [address] Care Team Providers Care Pediatric Dental Hygienist Name Role Phone Unavailable Primary Care Provider Unavailabl e Encounter Details Date Type Department Care Team (Late st Contact Info) Description 08/03/1999 Abstract [facility] CONVERSION [address] [place] [address] , Generic Conversion, Social History [...]
--- OUTSIDE RECORDS SUMMARY | 2024-05-04 18:42 | XMS_ITS | Encounter Summary ---
Author Organization [facility] Address [facility]6 [facility]. [place], [place] [address] [place] [address] Care Team Providers Care Bone Glue Maker Name Role Phone Carmina Walters MD Primary [...] IV OFFICE/OUTPT VISIT,EST,LEVL V Carmina Walters MD [address] [address] Phone: tel: [place]: [place] [address] [address] Phone: tel: fax: Referral ID Status Reason Start Date Expiration Date V isits Requested Visits Authorized [id number] New Request 03/17/2024 04/18/2025 1 1 N HOUSE MANAGER Reason for Visit * Reason Comments Ankle Right ankle - wound issues. She itched it so much, but broke it open. Onset- 2 days ago. Draining some. Encounter Details Date Type Department Care Team (Late st Contact Info) Description 03/17/2024 10:30 AM GREEN HOUSE MANAGER Office Visit [facility] Medical Group Family Medicine - [place] [address] [place] [address] Carmina Walters MD [address] [place] [address] Ankle (Right ankle - wound [...] Comments Blood Pressure 135/84 03/17/2024 10:40 AM GREEN HOUSE MANAGER Pulse 89 03/17/2024 10:40 AM GREEN HOUSE MANAGER Temperature 36.4 ??C (97.5 ??F) 03/17/2024 10:[address] Respiratory Rate 20 03/17/2024 10:40 AM GREEN HOUSE MANAGER Oxygen Saturation 98% 03/17/2024 10:40 AM GREEN HOUSE MANAGER Inhaled Oxygen Concentration - - Weight 124 kg (273 lb 6.4 oz) 03/17/2024 10:40 A M GREEN HOUSE MANAGER Height 170.2 cm (5' 7 ) 03/17/2024 10:40 AM GREEN HOUSE MANAGER Body Mass Index 42.82 03/17/2024 10:40 AM GREEN HOUSE MANAGER documented in this encounter Patient Instructions * Attachments The following attachments cannot be sent through Care Everywhere. * Wound Infection (Ethiopian) documented in this encounter Progress Notes * [...] animal Class 3 severe obesity in adult ([facility]) Prediabetes Current Outpatient Medications: albuterol [...] on file. CARMINA WALTERS MD Family Practice N HOUSE MANAGER documented in this encounter Plan of Treatment Scheduled Referrals Name Type Priority Associated Diagnoses Orde r Schedule Ambulatory referral to General Surgery Referral Routine Ankle wound, right, initial encounter Ordered: 03/17/2024 documented as of this encounter Visit Diagnoses Diagnosis Ankle wound, right, initial encounter- Primary documented in this encounter Care Teams Bone Glue Maker Relationship Specialty Start Date End Date Carmina Walters MD [address] [facility] [address] [place] [address] PCP - General FAMILY PRACTICE 11/22/23 documented as of this encounter
--- OUTSIDE RECORDS SUMMARY | 2024-05-04 18:42 | XMS_ITS | Encounter Summary ---
Author Organization [facility] Address [address] [place] [address] [place] [address] Care Team Providers Care Line Controller Name Role Phone Unavailable Primary Care Provider Unavailabl e Encounter Details Date Type Department Care Team (Latest Contact Info) Description 02/10/2011 11:46 AM CDT - 02/10/2011 11:59 PM CDT Hospital Encounter [facility] MATERNAL/ EVALUATION UNIT [address] [facility]. [address] [place] [address] Deann Cope MD [address] [facility] [address] [place] [address] Obstetrics Discharge Disposition: Home or Self Care [...] 1:18 PM CDT 02/10/2011, 1:18 PM R2 CAN STERILIZER Follow up CC: Follow up pelvic pain [...] Dr. Romi Chawla MD 02/10/2011 1:18 PM CAN STERILIZER Clinic Attending Note: I reviewed the history [...]
--- OUTSIDE RECORDS SUMMARY | 2024-05-04 18:42 | XMS_ITS | Clinical Summary ---
Author Organization [facility] Address [facility] [place] [address] [place] [address] Care Team Providers Care Cdl Team Truck Driver Name Role Phone Carmina Lopez MD Primary [...] 10/07/2021 Overview (11/22/2023): Last Assessment & Plan: -Bench Assembler Operator -encourage diet/exercise Encounters Date Type Department Care Team Description 03/17/2024 10:30 AM MEDICAL BILLER Office Visit [facility] Medical Group Family Medicine - [place] [address] [place] [address] [address] [place] [address] Carmina Lopez MD Ankle (Right ankle - wound issues. She itched it so much, but broke it open. Onset- 2 days ago. Draining some. ) 03/17/2024 Travel from Last 3 Months Immunizations Name Administration Dates Next Due Influenza Adult (Generic) 05/21/2021,05/11/2020 [employer] ([employer]) COVID-19 AD26 VACCINE 0.5 ML IM SUSP 06/28/2020 MODERNA COVID-19 (NEONATAL NURSE PRACTITIONER DENAE RINA), MRNA, LNP-S, PF, 50 MCG/ [...] Comments Blood Pressure 135/84 03/17/2024 10:40 AM MEDICAL BILLER Pulse 89 03/17/2024 10:40 AM MEDICAL BILLER Temperature 36.4 ??C (97.5 ??F) 03/17/2024 10:[address] Respiratory Rate 20 03/17/2024 10:40 AM MEDICAL BILLER Oxygen Saturation 98% 03/17/2024 10:40 AM MEDICAL BILLER Inhaled Oxygen Concentration - - Weight 124 kg (273 lb 6.4 oz) 03/17/2024 10:40 A M MEDICAL BILLER Height 170.2 cm (5' 7 ) 03/17/2024 10:40 AM MEDICAL BILLER Body Mass Index 42.82 03/17/2024 10:40 AM MEDICAL BILLER Plan of Treatment Health Maintenance Due Date [...] VE NON-REACT JULIENNE 12/04/2023 10:20 PM CDT [facility] Comment: ANTIBODIES TO HCV NOT DETECTED. DOES NOT EXCLUDE THE POSSIBILITY OF EXPOSURE TO HCV. 12/04/2023 7:17 AM CDT us Carmina Lopez MD LABORATORY Final Re sult [facility] [address] [place] [address], [id number] from Last 3 Months or Most Recently Relevant to Health Maintenance Insurance [place] [facility] Care Teams Cdl Team Truck Driver Relationship Specialty Start Date End Date Carmina Lopez MD [address] [facility] [address] [place] [address] PCP - General FAMILY PRACTICE 11/22/23
--- OUTSIDE RECORDS SUMMARY | 2024-05-04 18:42 | XMS_ITS | Encounter Summary ---
Author Organization [facility] Address [address] [place] [address] [place] [address] Care Team Providers Care Mechanical Design Engineer Products Name Role Phone Unavailable Primary Care Provider Unavailabl e Encounter Details Date Type Department Care Team (Latest Contact Info) Description 01/17/2011 12:44 PM CDT - 01/17/2011 11:59 PM CDT Hospital Encounter [facility] MATERNAL/ EVALUATION UNIT [address] [facility]. 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 Smoking status: [...] clue cells or yeast Assessment: Problem visit SPECIAL EVENTS PLANNER Well woman SPECIAL EVENTS PLANNER female exam. Plan: 1. Pelvic pain 1. [...] Maikel Chawla MD 01/17/2011 3:28 PM New Equity Manager Patient Note: Pt seen. History of Present [...] 3 TRM 1996 M Yes Obstetric Comments Equity Manager Hx: Menarche at 16, regular periods every [...] CULTURE URINE (01/17/2011 3:45 PM CDT) Result [facility] Comment: Final CULTURE <10,000 CFU/mL urogenital/skin tita Urine specimen (specimen) URINE SPECIMEN OBTAINED BY CLEAN CATCH PROCEDURE / Unknown 01/17/2011 3:45 PM CDT 01/17/2011 5:19 PM CDT Narrative Resulting Agency Comment Performed By [facility];[address] [place] [address];[place] [address] Ana Chawla MD LAB - MICROBIOLOGY O RDERABLES Performing Organization Address [facility] Co de Phone Number [facility] [address] [place] [address] * (ABNORMAL) URINALYSIS ROUTINE AUTO (01/17/2011 3:45 PM CDT) Source Clean Catch [facility] Color UA Yellow [facility] Character UA Clear [facility] Glucose UA NEGATIVE NEGATIVE mg/dl [facility] Bilirubin UA NEGATIVE NEGATIVE [facility] Ketone UA 15(H) NEGATIVE mg/dl [facility] Specific [place] UA 1.025 1.003 - 1.030 [facility] Blood UA NEGATIVE NEGATIVE [facility] pH UA 6.0 5.0 - 9.0 [facility] Protein UA NEGATIVE NEGATIVE-TR ADRIANA mg/dl [facility] Urobilinogen UA 0.2 0.2 - 1.0 Liang Units/dl [facility] Nitrite UA NEGATIVE NEGATIVE [facility] Leukocyte UA NEGATIVE NEGATIVE [facility] URINE SPECIMEN OBTAINED BY CLEAN CATCH PROCEDURE / Unknown 01/17/2011 3:45 PM CDT 01/17/2011 5:19 PM CDT Ana Chawla MD LAB - URINALYSIS ORD ERABLES Performing Organization Address [facility] Co de Phone Number [facility] [address] [place] [address] * CHLAMYDIA + GC AMPLIFIED PROBE (01/17/2011 3:40 PM CDT) Chlamydia trachomatis Amplified Probe NEGATIVE [facility] GC Amplified Probe NEGATIVE [facility] Comment Amplified Probe [facility] Comment: Comments and Normal Ranges for Component ??Amplified Probe Comment Results based on detection/no detection of ribosomal RNA by amplified method. ENTIRE ENDOCERVIX / Unknown 01/17/2011 3:40 PM CDT 01/17/2011 4:46 PM CDT Narrative Resulting Agency Comment Performed By [facility] ? [address] ? [place] [address] Ana Chawla MD LAB - MICROBIOLOGY O RDERABLES Performing Organization Address [facility] de Phone Number [facility] [address] [place] [address] * CYTOLOGY CERVICAL/VAG SCREEN THIN PREP (01/17/2011 3:40 PM CDT) Comment Thin Prep [facility] Pap Smear Report See Scanned Report [facility] ENTIRE ENDOCERVIX / Unknown 01/17/2011 3:40 PM CDT 01/17/2011 4:45 PM CDT Narrative Resulting Agency Comment Performed By [facility] ? [address] ? [place], [place] ??[address] Ana Chawla MD LAB - PATHOLOGY/CYTO LOGY ORDERABLES Performing Organization Address [facility] de Phone Number [facility] [address] [place] [address] * PHOSPHORUS BLOOD (01/17/2011 3:15 PM CDT) Phosphorus 2.9 2.5 - 4.9 mg/dl [facility] BLOOD SPECIMEN / Unknown 01/17/2011 3:15 PM CDT 01/17/2011 4:56 PM CDT Ana Chawla MD LAB - CHEMISTRY SATISH COBB Performing Organization Address [facility] de Phone Number [facility] [address] [place] [address] * CALCIUM BLOOD (01/17/2011 3:15 PM CDT) Calcium 9.0 8.5 - 10.1 mg/dl [facility] BLOOD SPECIMEN / Unknown 01/17/2011 3:15 PM CDT 01/17/2011 4:56 PM CDT Ana Chawla MD LAB - CHEMISTRY SATISH COBB Performing Organization Address [facility] Co de Phone Number [facility] [address] [place] [address] * PTH INTACT PANEL (01/17/2011 3:15 PM CDT) PTH Intact 32.6 14 - 72 pg/ml [facility] Calcium PTH Intact 9.1 8.4 - 10.2 mg/dl [facility] BLOOD SPECIMEN / Unknown 01/17/2011 3:15 PM CDT 01/17/2011 4:56 PM CDT Ana Chawla MD LAB - CHEMISTRY SATISH COBB Performing Organization Address [facility] Co de Phone Number [facility] [address] [place] [address] * T4 FREE (01/17/2011 3:15 PM CDT) T4 Free 1.11 0.65 - 1.34 ng/dl [facility] BLOOD SPECIMEN / Unknown 01/17/2011 3:15 PM CDT 01/17/2011 4:56 PM CDT Ana Chawla MD LAB - CHEMISTRY SATISH COBB Performing Organization Address [facility] de Phone Number [facility] [address] [place] [address] * TSH (01/17/2011 3:15 PM CDT) Pathologist [facility] TSH 1.63 0.358 - 3.74 uIU/ml [facility] BLOOD SPECIMEN / Unknown 01/17/2011 3:15 PM CDT 01/17/2011 4:56 PM CDT Ana Chawla MD LAB - CHEMISTRY SATISH COBB Performing Organization Address [facility] Co de Phone Number [facility] [address] [place] [address] documented in this encounter Visit Diagnoses Diagnosis Routine gynecological examination Kidney stone Calculus of kidney Kidney stone Calculus of kidney documented in this encounter
--- OUTSIDE RECORDS SUMMARY | 2024-05-04 18:42 | XMS_ITS | Encounter Summary ---
Author Organization [facility] Address [address] [place] [address]. [place], [place] [address] [place] [address] Care Team Providers Care Theatrical Scenic Designer Name Role Phone Unavailable Primary Care Provider Unavailabl e Encounter Details Date Type Department Care Team (Late st Contact Info) Description 08/02/1999 Abstract [facility] CONVERSION [address] [place] [address] , Generic Conversion, Social History [...]
--- OUTSIDE RECORDS SUMMARY | 2024-05-04 18:42 | XMS_ITS | Encounter Summary ---
Author Organization [facility] Health Address [facility]3 [facility] [place] [address] Care Team Providers Care Dope Worker Name Role Phone Unavailable Primary Care Provider Unavailabl e Encounter Details Date Type Department Care Team (Latest Contact Info) Description 01/21/2011 11:03 AM CDT - 01/21/2011 11:59 PM CDT Hospital Encounter [facility] Imaging Services [address] [facility] [address] [place] [address] Discharge Disposition: Home or Self Care Social [...]
--- OUTSIDE RECORDS SUMMARY | 2024-05-04 18:42 | XMS_ITS | Encounter Summary ---
Author Organization [facility] Address [address] [place] [address]. [place], [place] [address] [place] [address] Care Team Providers Care Transmission Tester Name Role Phone None, Provider Primary Care [...] on filedocumented in this encounter Care Teams Transmission Tester Relationship Specialty Start Date End Date None, Provider, PCP - General 09/29/21 11/21/23 documented as of this encounter
--- OUTSIDE RECORDS SUMMARY | 2024-05-04 18:42 | XMS_ITS | Encounter Summary ---
Author Organization [facility] Address [facility]6 [facility]. [place], [place] [address] [place] [address] Care Team Providers Care Heel Trimmer Name Role Phone Carmina Lopez MD Primary [...] on filedocumented in this encounter Care Teams Heel Trimmer Relationship Specialty Start Date End Date Carmina Lopez MD [address] [place] [address] PCP - General FAMILY PRACTICE 11/22/23 documented as of this encounter
--- OUTSIDE RECORDS SUMMARY | 2024-05-04 18:42 | XMS_ITS | Encounter Summary ---
Author Organization [facility] Address [address] [facility] [place] [address] Care Team Providers Care Real Time Operator Name Role Phone Unavailable Primary Care Provider Unavailabl e Encounter Details Date Type Department Care Team (Latest Contact Info) Description 01/21/2011 12:01 AM CDT - 01/21/2011 11:02 AM CDT Hospital Encounter [facility] Imaging Services [address] [facility] [address] [place] [address] Ana Chawla MD [address] [place] [address] Medical Outpatient Discharge Disposition: Home [...]
--- OUTSIDE RECORDS SUMMARY | 2024-05-04 18:42 | XMS_ITS | Clinical Summary ---
Author Organization [facility] Address [address] [place] [address] Care Team Providers Care Senior Java Software Engineer Name Role Phone Unavailable Primary Care Provider Unavailabl e Source Comments [facility] Affiliates and Associated Physician Practices is amultiple site organization consisting of ambulatory clinics and hospital sitesin [place], [place], [place] and [place]. This disclosure is being madepursuant to the Care Everywhere program and may not contain all information available regarding this patient. Last updated 18.[facility] Allergies No known active allergies Family [...] (01/17/2011 3:40 PM CDT) Comment Thin Prep [facility] Pap Smear Report See Scanned Report [facility] ENTIRE ENDOCERVIX / Unknown 01/17/2011 3:40 PM CDT 01/17/2011 4:45 PM CDT Narrative Resulting Agency Comment Performed By [facility]) ? [address] ? [place], [place] ??[address] Ana Chawla MD LAB - PATHOLOGY/CYTO LOGY ORDERABLES [facility] [address] [place] [address] from Last 3 Months or Most Recently Relevant to Health Maintenance
--- OUTSIDE RECORDS SUMMARY | 2024-05-04 18:42 | XMS_ITS | Encounter Summary ---
Author Organization [facility] Address [facility]. [place], [place] [address] [place] [address] Care Team Providers Care Chief Fundraising Officer Name Role Phone Carmina Lopez MD Primary [...] on filedocumented in this encounter Care Teams Chief Fundraising Officer Relationship Specialty Start Date End Date Carmina Loepz MD [address] [place] [address] PCP - General FAMILY PRACTICE 11/22/23 documented as of this encounter
--- OUTSIDE RECORDS SUMMARY | 2024-05-04 18:42 | XMS_ITS | Clinical Summary ---
Author Organization [facility] Care Team Providers Care Production Control Expediter Name Role Phone Unavailable Primary Care Provider Unavailabl e Social History Tobacco Use Types Packs/Day Years Used Date Smoking Tobacco: Never Assessed Comments Unknown Sex and Gender Information Value Date Recorded Sex Assigned at Not on file Legal Sex Female 8:31 AM GATE MANAGER Gender Identity Not on file Sexual Orientation [...]
--- OUTSIDE RECORDS SUMMARY | 2024-05-04 18:42 | XMS_ITS | Encounter Summary ---
Author Organization [facility] Address [address] [place] [address]. [place] [address] [place] [address] Care Team Providers Care Final Canoe Inspector Name Role Phone None, Provider Primary Care Provider Unavaila ble Reason for Visit * Reason Comments Animal Bite Encounter Details Date Type Department Care Team (Late st Contact Info) Description 09/29/2021 3:32 PM CDT - 09/29/2021 4:00 PM CDT Emergency [facility] [place] [address] Franck Ceballos PA-C [address] [place] [address] Animal Bite Discharge Disposition: Home or Self [...] Augmentin Today, for total of 10 days. [id number] pain reliever as needed. Follow-up closely with your primary doctor in 2 to 3 days for reevaluation. Return to the emergency room if you have fever of 100.4 Fahrenheit or greater, if the wound is not significantly enlarging or draining purulent drainagedespite medication, or if further concern * Attachments The following attachments cannot be sent through Care Everywhere. * Animal Bites Discharge Instructions (Fijian) documented in this encounter Medications at Time [...] to bear weight. She was seen at [place], [place] urgent care on Sunday, 3 days [...] nursing note reviewed. Exam conducted with a environmental studies faculty member present. Constitutional: General: She is not in [...] or imaging at this time. Patient given [place] for pain. Will discharge with extended Augmentin [...] Class: Print Disposition: Discharge Follow-Up: CHRISTIAN Jameson [address] [facility] [phone] Call today FRANCK CEBALLOS PA-C 09/29/2021 Franck Ceballos PA-C 09/29/21 1540 Cosigned by Xiao Pickett MD at 09/30/2021 7:20 AM CDT * Johanna Dominguez RN - 09/29/2021 3:32 PM CDT Bed: 24 Expected date: Expected time: Means of arrival: Comments: * CHRISTIAN Trammell - 09/29/2021 3:22 PM CDT [place] EMERGENCY DEPARTMENT ENCOUNTER Medical Screening Examination [...] RN) documented in this encounter Care Teams Final Canoe Inspector Relationship Specialty Start Date End Date None, Provider, PCP - General 09/29/21 11/21/23 documented as of this encounter
--- OUTSIDE RECORDS SUMMARY | 2024-05-04 18:42 | XMS_ITS | Encounter Summary ---
Author Organization [facility] Address [address] [place] [address]. [place] [address] [place] [address] Care Team Providers Care Protection Agent Name Role Phone None, Provider Primary Care Provider Unavaila ble Reason for Visit * Reason Onset Date Comments Follow Up Call 11/20/2023 Encounter Details Date Type Department Care Team (Late st Contact Info) Description 11/20/2023 Telephone [facility] Medical [facility] Family Medicine [facility] [address] [address] Carmina Lopez MD [address] [facility] [address] [place] [phone] Follow Up Call Social History Tobacco Use [...] on filedocumented in this encounter Care Teams Protection Agent Relationship Specialty Start Date End Date None, Provider, PCP - General 09/29/21 11/21/23 documented as of this encounter
--- OUTSIDE RECORDS SUMMARY | 2024-05-04 18:42 | XMS_ITS | Encounter Summary ---
Author Organization [facility] Address [address] [place] [address]. [place] [address] [place] [address] Care Team Providers Care Supervisor Steno Pool Name Role Phone Carmina Walters MD Primary Care Provider + Reason for Referral * Imaging (Routine) - Closed Specialty Diagnoses / Procedures Referred By Contac t Referred To Contact RADIOLOGY Diagnoses Skin mass Procedures US SOFT TISS LOW BACK OR ABD WALL Carmina Walters MD [address] [place] [address] Phone: tel: fax: Referral ID Status Reason Start Date Expiration Date Visits Re quested Visits Authorized [id number] Closed 11/22/2023 11/21/2024 1 1 * Imaging (Routine) - New Request Specialty Diagnoses / Procedures Referred By Contac t Referred To Contact RADIOLOGY Diagnoses Former smoker Procedures CT LUNG SCREENING Carmina Walters MD [address] [place] [address] Phone: tel: fax: Referral ID Status Reason Start Date Expiration Date V isits Requested Visits Authorized [id number] New Request 11/22/2023 12/22/2024 1 1 * Imaging (Routine) - New Request Specialty Diagnoses / Procedures Referred By Adebayo alanis Referred To Contact RADIOLOGY Diagnoses Encounter for mammogram to establish baseline mammogram Procedures MG SCREENING W SHAZIA SHOAIB GLENNYI Carmina Walters MD [address] [place] [address] Phone: tel: fax: Referral ID Status Reason Start Date Expiration Date V isits Requested Visits Authorized [id number] New Request 11/22/2023 01/21/2025 1 1 * Consultation/Treatment (Routine) - Pending Review Specialty Diagnoses / Procedures Referred By Adebayo alanis Referred To Contact GENERAL SURGERY Diagnoses Skin mass Procedures OFFICE/OUTPATIENT NEW LOW MDM 30-44 MINUTES OFFICE/OUTPT VISIT,NEW,LEVL IV OFFICE/OUTPT VISIT,NEW,LEVL V OFFICE/OUTPT VISIT,EST,LEVL III OFFICE/OUTPT VISIT,EST,LEVL IV OFFICE/OUTPT VISIT,EST,LEVL V Carmina Walters MD [address] [place] [address] Phone: tel: fax: [facility] [address] [place] [address] Phone: tel: fax: Referral ID Status Reason Start Date Expiration Date V isits Requested Visits Authorized [id number] Pending Review 11/22/2023 11/21/2024 99 99 Scheduling [...] Family Medicine - [place] [address] [place] [address] Carmina Walters MD [address] [place] [address] New Patient (Here to get established. ); [...] Wheat bran Dried beans and nuts like: Cheatham seeds Almonds Black beans Chickpeas What problems [...] or approved for treating a specific patient. [employer] and its affiliates disclaim any warranty or liability relating to this information or the use thereof. The use of this information is governed by the Terms of Use, available at https://www.[employer].com/en/know/jdhrpode-qjvzmccqwgbhw-enbcn Copyright Copyright ?? 2022 [employer] and its affiliates and/or licensors. All rights reserved. Patient Education Lung cancer screening The Basics Written by the doctors and editors at [employer] What is lung cancer screening???--??Lung cancer screening [...] out of 100people with an abnormal scan turning machine set up operator not to have lung cancer. But you [...] process is complete. This topic retrieved from [employer] on: Jun 18, 2023. Topic 25977 Version 14.0 Release: 32.2.4 - C32.56 ?2023??[employer]. and/or its affiliates.??All rights reserved. Consumer Information [...] or approved for treating a specific patient. [employer] and its affiliates disclaim any warranty or liability relating to this information or the use thereof.The use of this information is governed by the Terms of Use, available at https://www.woltersArcturus [employer] Inc.uwer.com/en/know/lfjuolpl-zwjdyxxlhexes-hkafu. 2023?? [employer]. and its affiliates and/or licensors. Allrights reserved. Copyright ?2023??[employer]. and/or its affiliates.??All rights reserved. documented in [...] animal Class 3 severe obesity in adult ([facility]) Current Outpatient Medications: albuterol sulfate HFA 108 [...] with following. Prevention: - Cervical cancer screening [facility] [place] 2 years ago. - STD [...] mammogram Relevant Orders MG SCREENING W SHAZIA SOHAIB DIGI Former smoker Relevant Orders CT LUNG [...] VE NON-REACT JULIENNE 12/04/2023 10:20 PM CDT [facility] Comment: ANTIBODIES TO HCV NOT DETECTED. DOES NOT EXCLUDE THE POSSIBILITY OF EXPOSURE TO HCV. 12/04/2023 7:17 AM CDT Carmina Walters MD LABORATORY Final Re sult [facility] [address] [place] [address], [phone] * (ABNORMAL) BASIC METABOLIC PANEL (12/04/2023 7:17 AM CDT) Pathologist [facility] SODIUM S/P/B 140 136 - 145 MMOL/L 12/04/2023 2:35 PM CDT [facility] POTASSIUM S/P/B 4.3 3.5 - 5.1 MMOL/L 12/04/2023 2:35 PM CDT [facility] CHLORIDE S/P/B 104 98 - 107 MMOL/L 12/04/2023 2:35 PM CDT [facility] CO2 30.2 21 - 32 MMOL/L 12/04/2023 2:35 PM CDT [facility] GLUCOSE 104(H) 70 - 99 MG/DL 12/04/2023 2:35 PM [facility]T [facility] BUN 17 7 - 18 MG/DL 12/04/2023 2:35 PM CDT [facility] CREATININE S/P/B 0.99 0.55 - 1.02 MG/DL 12/04/2023 2:35 PM CDT [facility] CALCIUM S/P/B 8.6 8.4 - 10.5 MG/DL 12/04/2023 2:35 PM CDT [facility] ANION GAP 5.8 5 - 15 MMOL/L 12/04/2023 2:35 PM CDT [facility] Comment:REFERENCE RANGE NOT ESTABLISHED OSMOLALITY (CALC) 292 MOSM/KG 024 2:35 PM CDT [facility] Comment:REFERENCE RANGE NOT ESTABLISHED GFR ESTIMATE 67(L) >90 ML/MIN/1. 73 M2 12/04/2023 2:35 PM CDT [facility] GFR NOTES GFR REFERENCE S: 12/04/2023 2:35 PM CDT [facility] Comment: THE ESTIMATED GFR IS CALCULATED [...] Carmina Walters MD LABORATORY Final Re sult [facility] [address] [place] [address], [place] [phone] * (ABNORMAL) LIPID PANEL (12/04/2023 7:17 AM CDT) CHOLESTEROL 187 <200 MG/DL 12/04/2023 2:35 PM CDT [facility] TRIGLYCERIDES 74 <150 MG/DL 12/04/2023 2:35 PM CDT [facility] HDL 58 >40 MG/DL 12/04/2023 2:35 PM CDT [facility] LDL-C 114(H) <100 MG/DL 12/04/2023 2:35 PM CDT [facility] VLDL CALCULATION 15 5 - 28 MG/DL 12/04/2023 2:35 PM CDT [facility] CHOL/HDL RATIO 3.2 0.0 - 4.0 12/04/2023 2:35 PM CDT [facility] LDL/HDL 2.0 0.41 - 2.13 12/04/2023 2:35 PM CDT [facility] NON HDL CHOLESTEROL 129 <140 MG/DL 12/04/2023 2:35 PM CDT [facility] 12/04/2023 7:17 AM CDT Carmina Walters MD LABORATORY Final Re sult Performing Organization Address [facility] Co de Phone Number [place] [address] [place] [address], [place] [phone] * (ABNORMAL) HEMOGLOBIN, GLYCOSYLATED (12/04/2023 7:17 AM CDT) HGB A1C 5.9 4.5 - 6.2 % 12/04/2023 2:39 PM CDT [facility] ESTIMATED AVG GLUCOSE 123(H) 74 - 106 MG/DL 12/04/2023 2:39 PM CDT [facility] 12/04/2023 7:17 AM CDT Carmina Walters MD LABORATORY Final Re sult Performing Organization Address [facility] Co de Phone Number [place] [address] [place] [address], [place] [phone] documented in this encounter Visit Diagnoses Diagnosis Routine general medical examination at a health care facility- Primary Skin mass Localized superficial swelling, mass, or lump Encounter for mammogram to establish baseline mammogram Other screening mammogram Former smoker Personal history of tobacco use, presenting hazards to health Skin mass Localized superficial swelling, mass, or lump documented in this encounter Care Teams Supervisor Steno Pool Relationship Specialty Start Date End Date Carmina Walters MD [address] [facility] [address] [place] [address] PCP - General FAMILY PRACTICE 11/22/23 documented as of this encounter
--- OUTSIDE RECORDS SUMMARY | 2024-05-04 18:42 | XMS_ITS | Encounter Summary ---
Author Organization [facility] Address [address] [place] [address]. [place] [address] [place] [address] Care Team Providers Care Patrol Deputy Sheriff Name Role Phone Carmina Walters MD Primary Care Provider + Reason for Referral * Imaging (Routine) - Closed Specialty Diagnoses / Procedures Referred By Contac t Referred To Contact RADIOLOGY Diagnoses Skin mass Procedures US SOFT TISS LOW BACK OR ABD WALL Carmina Walters MD [address] [place] [address] Phone: tel: fax: Referral ID Status Reason Start Date Expiration Date Visits Re quested Visits Authorized [id number] Closed 11/22/2023 11/21/2024 1 1 Reason for Visit * Imaging (Routine) - Closed Specialty Diagnoses / Procedures Referred By Contac t Referred To Contact RADIOLOGY Diagnoses Skin mass Procedures US SOFT TISS LOW BACK OR ABD WALL Carmina Walters MD [address] [place] [address] Phone: tel: fax: Referral ID Status Reason Start Date Expiration Date Visits Re quested Visits Authorized [id number] Closed 11/22/2023 11/21/2024 1 1 Encounter Details Date Type Department Care Team (Latest Contact Info) Description 12/05/2023 2:44 PM CDT - 12/05/2023 11:59 PM CDT Hospital Encounter [facility] [place] [address] Carmina Walters MD [address] [place] [address] Discharge Disposition: Home or Self Care (Routine [...] lump documented in this encounter Care Teams Patrol Deputy Sheriff Relationship Specialty Start Date End Date Carmina Walters MD [address] [facility] [address] [place] [address] PCP - General FAMILY PRACTICE 11/22/23 documented as of this encounter
--- OUTSIDE RECORDS SUMMARY | 2024-05-04 18:42 | XMS_ITS | Patient Health Summary ---
Author Organization [facility] Address [address] [place] [address] Care Team Providers Care Sheet Metal Contractor Name Role Phone Unavailable Primary Care Provider Unavailabl e Note from [facility],non-owned Affiliates and Associated Physician Practices is amultiple site organization consisting of ambulatory clinics and hospital sitesin [place], [place] and [place]. This disclosure is being madepursuant to the Care Everywhere program and may not contain all information available regarding this patient. Last updated 18.[facility] [employer] Allergies No known active allergies Social [...] (01/17/2011 3:45 PM CDT) Source Clean Catch [facility] Color UA Yellow [facility] Character UA Clear [facility] Glucose UA NEGATIVE NEGATIVE mg/dl [facility] Bilirubin UA NEGATIVE NEGATIVE [facility] Ketone UA 15(H) NEGATIVE mg/dl [facility] Specific [place] UA 1.025 1.003 - 1.030 [facility] Blood UA NEGATIVE NEGATIVE [facility] pH UA 6.0 5.0 - 9.0 [facility] Protein UA NEGATIVE NEGATIVE-TR ADRIANA mg/dl [facility] Urobilinogen UA 0.2 0.2 - 1.0 Liang Units/dl [facility] Nitrite UA NEGATIVE NEGATIVE [facility] Leukocyte UA NEGATIVE NEGATIVE [facility] URINE SPECIMEN OBTAINED BY CLEAN CATCH PROCEDURE / Unknown 01/17/2011 3:45 PM CDT 01/17/2011 5:19 PM CDT Ana Chawla MD LAB - URINALYSIS ORD ERABLES Performing Organization Address City/[facility]/ZIP Co de Phone Number [facility] [address] [place] [address] * CULTURE URINE (01/17/2011 3:45 PM CDT) Result [facility] Comment: Final CULTURE <10,000 CFU/mL urogenital/skin tita Urine specimen (specimen) URINE SPECIMEN OBTAINED BY CLEAN CATCH PROCEDURE / Unknown 01/17/2011 3:45 PM CDT 01/17/2011 5:19 PM CDT Narrative Resulting Agency Comment Performed By [facility];[address] [place] [address];[place] [address] Ana Chawla MD LAB - MICROBIOLOGY O RDERABLES [facility] [address] [place] [address] * CYTOLOGY CERVICAL/VAG SCREEN THIN PREP (01/17/2011 3:40 PM CDT) Comment Thin Prep [facility] Pap Smear Report See Scanned Report [facility] ENTIRE ENDOCERVIX / Unknown 01/17/2011 3:40 PM CDT 01/17/2011 4:45 PM CDT Narrative Resulting Agency Comment Performed By [facility]OVANNI) ? [address] ? [place], [place] ??[address] Ana Chawla MD LAB - PATHOLOGY/CYTO LOGY ORDERABLES Performing Organization Address [facility] de Phone Number [facility] [address] [place] [address] * CHLAMYDIA + GC AMPLIFIED PROBE (01/17/2011 3:40 PM CDT) Chlamydia trachomatis Amplified Probe NEGATIVE [facility] GC Amplified Probe NEGATIVE [facility] Comment Amplified Probe [facility] Comment: Comments and Normal Ranges for Component ??Amplified Probe Comment Results based on detection/no detection of ribosomal RNA by amplified method. ENTIRE ENDOCERVIX / Unknown 01/17/2011 3:40 PM CDT 01/17/2011 4:46 PM CDT Narrative Resulting Agency Comment Performed By [facility] ? [address] ? [place] [address] Ana Chawla MD LAB - MICROBIOLOGY O RDERABLES Performing Organization Address [facility] de Phone Number [facility] [address] [place] [address] * PTH INTACT PANEL (01/17/2011 3:15 PM CDT) PTH Intact 32.6 14 - 72 pg/ml [facility] Calcium PTH Intact 9.1 8.4 - 10.2 mg/dl [facility] BLOOD SPECIMEN / Unknown 01/17/2011 3:15 PM CDT 01/17/2011 4:56 PM CDT Ana Chawla MD LAB - CHEMISTRY SATISH COBB Performing Organization Address [facility] de Phone Number [facility] [address] [place] [address] * PHOSPHORUS BLOOD (01/17/2011 3:15 PM CDT) Phosphorus 2.9 2.5 - 4.9 mg/dl [facility] BLOOD SPECIMEN / Unknown 01/17/2011 3:15 PM CDT 01/17/2011 4:56 PM CDT Ana Chawla MD LAB - CHEMISTRY SATISH COBB Performing Organization Address City/[facility] Co de Phone Number [facility] [address] [place] [address] * CALCIUM BLOOD (01/17/2011 3:15 PM CDT) Pathologist [facility] Calcium 9.0 8.5 - 10.1 mg/dl [facility] BLOOD SPECIMEN / Unknown 01/17/2011 3:15 PM CDT 01/17/2011 4:56 PM CDT Ana Chawla MD LAB - CHEMISTRY SATISH COBB Performing Organization Address City/[facility] Co de Phone Number [facility] [address] [place] [address] * TSH (01/17/2011 3:15 PM CDT) Pathologist [facility] TSH 1.63 0.358 - 3.74 uIU/ml [facility] BLOOD SPECIMEN / Unknown 01/17/2011 3:15 PM CDT 01/17/2011 4:56 PM CDT Ana Chawla MD LAB - CHEMISTRY SATISH COBB Performing Organization Address City/[facility] Co de Phone Number [facility] [address] [place] [address] * T4 FREE (01/17/2011 3:15 PM CDT) Pathologist [facility] T4 Free 1.11 0.65 - 1.34 ng/dl [facility] BLOOD SPECIMEN / Unknown 01/17/2011 3:15 PM CDT 01/17/2011 4:56 PM CDT Ana Chawla MD LAB - CHEMISTRY SATISH COBB [facility] [address] [place] [address]
--- OUTSIDE RECORDS SUMMARY | 2024-05-04 18:42 | XMS_ITS | Encounter Summary ---
Author Organization [facility] Address [facility] [facility] [place] [address] [place] [address] Care Team Providers Care Beef Specialist Name Role Phone Carmina Lopez MD Primary Care Provider + Encounter Details Date Type Department Care Team (Latest Contact Info) Description 12/04/2023 - 12/04/2023 11:59 PM CDT Hospital Encounter [facility] [address] [place] [address] Carmina Lopez MD [address] [address] Discharge Disposition: Home or Self [...] on filedocumented in this encounter Care Teams Beef Specialist Relationship Specialty Start Date End Date Carmina Lopez MD [address] [facility] [address] [place] [address] PCP - General FAMILY PRACTICE 11/22/23 documented as of this encounter
--- OUTSIDE RECORDS SUMMARY | 2024-05-04 18:42 | XMS_ITS | Encounter Summary ---
Author Organization [facility] Address [facility] [place] [address] [place] [address] Care Team Providers Care Outreach Professional Name Role Phone Carmina Lopez MD Primary [...] on filedocumented in this encounter Care Teams Outreach Professional Relationship Specialty Start Date End Date Carmina Lopez MD [address] [facility] [address] [place] [phone] PCP - General FAMILY PRACTICE 11/22/23 documented as of this encounter
--- OUTSIDE RECORDS SUMMARY | 2024-05-04 18:42 | XMS_ITS | Encounter Summary ---
Author Organization [facility] Address [facility] [place] [address] [place] [address] Care Team Providers Care Manager Domestic Name Role Phone Carmina Lopez MD Primary Care Provider + Reason for Visit * Reason Onset Date Comments Lab Results 12/07/2023 Encounter Details Date Type Department Care Team (Late st Contact Info) Description 12/07/2023 Telephone [facility] Medical [facility] Family Medicine - [place] [address] [phone] Carmina Lopez MD [address] [phone] Lab Results Social History Tobacco Use Types [...] questions about her labs. Her # is [phone]. documented in this encounter Plan of Treatment Not on file documented as of this encounter Visit Diagnoses Not on filedocumented in this encounter Care Teams Manager Domestic Relationship Specialty Start Date End Date Carmina Lopez MD [address] [place] [address] PCP - General FAMILY PRACTICE 11/22/23 documented as of this encounter
--- OUTSIDE RECORDS SUMMARY | 2024-05-04 18:42 | XMS_ITS | Encounter Summary ---
Author Organization [facility] Address [facility]. [place], [place] [address] [place] [address] Care Team Providers Care Food And Beverage Intern Name Role Phone Carmina Lopez MD Primary [...] on filedocumented in this encounter Care Teams Food And Beverage Intern Relationship Specialty Start Date End Date Carmina Lopez MD [address] [place] [address] PCP - General FAMILY PRACTICE 11/22/23 documented as of this encounter
--- OUTSIDE RECORDS SUMMARY | 2024-05-04 18:42 | XMS_ITS | Encounter Summary ---
Author Organization [facility] Address [address] [place] [address]. [place] [address] [place] [address] Care Team Providers Care Tool Polishing Machine Operator Name Role Phone Carmina Lopez MD Primary Care Provider + Encounter Details Date Type Department Care Team (Late st Contact Info) Description 12/04/2023 7:10 AM CDT Laboratory Only [facility] Medical [facility] Family Medicine [facility] [address] [id number] Carmina Lopez MD [address] [id number] Social History Tobacco Use Types Packs/Day Years [...] CDT Routine general medical examination at a [facility] care facility BASIC METABOLIC PANEL Routine 12/04/2023 7:17 AM CDT Routine general medical examination at a [facility] care facility LIPID PANEL Routine 12/04/2023 7:17 AM CDT Routine general medical examination at a [facility] facility HEPATITIS C ANTIBODY Routine 12/04/2023 7:17 AM CDT Routine general medical examination at a [facility] facility documented in this encounter Results * (ABNORMAL) HEMOGLOBIN, GLYCOSYLATED (12/04/2023 7:17 AM CDT) HGB A1C 5.9 4.5 - 6.2 % 12/04/2023 2:39 PM CDT [facility] ESTIMATED AVG GLUCOSE 123(H) 74 - 106 MG/DL 12/04/2023 2:39 PM CDT [facility] 12/04/2023 7:17 AM CDT us Carmina Lopez MD LABORATORY Final Re sult [facility] [address] [place] [address], * (ABNORMAL) LIPID PANEL (12/04/2023 7:17 AM CDT) CHOLESTEROL 187 <200 MG/DL 12/04/2023 2:35 PM CDT [facility] TRIGLYCERIDES 74 <150 MG/DL 12/04/2023 2:35 PM CDT [facility] HDL 58 >40 MG/DL 12/04/2023 2:35 PM CDT [facility] LDL-C 114(H) <100 MG/DL 12/04/2023 2:35 PM CDT [facility] VLDL CALCULATION 15 5 - 28 MG/DL 12/04/2023 2:35 PM CDT [facility] CHOL/HDL RATIO 3.2 0.0 - 4.0 12/04/2023 2:35 PM CDT [facility] LDL/HDL 2.0 0.41 - 2.13 12/04/2023 2:35 PM CDT [facility] NON HDL CHOLESTEROL 129 <140 MG/DL 12/04/2023 2:35 PM CDT [facility] 12/04/2023 7:17 AM CDT us Carmina Lopez MD LABORATORY Final Re sult [facility] [address] [place] [address], * (ABNORMAL) BASIC METABOLIC PANEL (12/04/2023 7:17 AM CDT) SODIUM S/P/B 140 136 - 145 MMOL/L 12/04/2023 2:35 PM CDT [facility] POTASSIUM S/P/B 4.3 3.5 - 5.1 MMOL/L 12/04/2023 2:35 PM CDT [facility] CHLORIDE S/P/B 104 98 - 107 MMOL/L 12/04/2023 2:35 PM CDT [facility] CO2 30.2 21 - 32 MMOL/L 12/04/2023 2:35 PM CDT [facility] GLUCOSE 104(H) 70 - 99 MG/DL 12/04/2023 2:35 PM CDT [facility] BUN 17 7 - 18 MG/DL 12/04/2023 2:35 PM CDT [facility] CREATININE S/P/B 0.99 0.55 - 1.02 MG/DL 12/04/2023 2:35 PM CDT [facility] CALCIUM S/P/B 8.6 8.4 - 10.5 MG/DL 12/04/2023 2:35 PM CDT [facility] ANION GAP 5.8 5 - 15 MMOL/L 12/04/2023 2:35 PM CDT [facility] Comment:REFERENCE RANGE NOT ESTABLISHED OSMOLALITY (CALC) 292 MOSM/KG 024 2:35 PM CDT [facility] Comment:REFERENCE RANGE NOT ESTABLISHED GFR ESTIMATE 67(L) >90 ML/MIN/1. 73 M2 12/04/2023 2:35 PM CDT [facility] GFR NOTES GFR REFERENCE S: 12/04/2023 2:35 PM CDT [facility] Comment: THE ESTIMATED GFR IS CALCULATED [...] Carmina Lopez MD LABORATORY Final Re sult -[facility] [address] [place] [address], * HEPATITIS C ANTIBODY (12/04/2023 7:17 AM CDT) HEPATITIS C AB NON-REACTI VE NON-REACT JULIENNE 12/04/2023 10:20 PM CDT [facility] Comment: ANTIBODIES TO HCV NOT DETECTED. DOES NOT EXCLUDE THE POSSIBILITY OF EXPOSURE TO HCV. 12/04/2023 7:17 AM CDT us Carmina Lopez MD LABORATORY Final Re sult [facility] [address] [place] [address], [id number] documented in this encounter Visit Diagnoses Diagnosis Routine general medical examination at a health care facility- Primary documented in this encounter Care Teams Tool Polishing Machine Operator Relationship Specialty Start Date End Date Carmina Lopez MD [address] [place] [id number] PCP - General FAMILY PRACTICE 11/22/23 documented as of this encounter
--- OUTSIDE RECORDS SUMMARY | 2024-05-04 18:42 | XMS_ITS | Referral Summary ---
Author Organization [facility] Address [address] [place] [address] Care Team Providers Care Caster Investment Casting Name Role Phone Unavailable Primary Care Provider Unavailabl e Source Comments [facility],non-[facility] Affiliates and Associated Physician Practices is amultiple site organization consisting of ambulatory clinics and hospital sitesin [place], [place], [place] and [place]. This disclosure is being madepursuant to the Care Everywhere program and may not contain all information available regarding this patient. Last updated 18.[facility] Health Allergies No known active allergies Social [...] (01/17/2011 3:40 PM CDT) Comment Thin Prep [facility] Pap Smear Report See Scanned Report [facility] ENTIRE ENDOCERVIX / Unknown 01/17/2011 3:40 PM CDT 01/17/2011 4:45 PM CDT Narrative Resulting Agency Comment Performed By [facility](JOVANNI) ? [address] ? [place], [place] ??[address] Ana Chawla MD LAB - PATHOLOGY/CYTO LOGY ORDERABLES [facility] [address] [place] [address] from Last 3 Months or Most Recently Relevant to Health Maintenance
--- OUTSIDE RECORDS SUMMARY | 2024-05-04 18:42 | XMS_ITS | Encounter Summary ---
Author Organization [facility] Address [address] [place] [address] Care Team Providers Care Field Service Manager Name Role Phone Unavailable Primary Care Provider Unavailabl e Encounter Details Date Type Department Care Team (Late st Contact Info) Description 05/10/2021 Lab Requisition [facility] [address] [place] [address] Raimundo Castaneda MD [address] [place] [address] [address] [place], [place] [address] Social History Tobacco Use Types Packs/Day Years Used Date Smoking Tobacco: Never Assessed Comments Unknown Sex and Gender Information Value Date Recorded Sex Assigned at Not on file Legal Sex Female 8:31 AM ELIGIBILITY TECHNICIAN Gender Identity Not on file Sexual Orientation Not on file documented as of this encounter Plan of Treatment Not on file documented as of this encounter Procedures Procedure Name Priority Date/Time Associated Diagnosis Comments SARS-COV-2 PCR [facility] ONLY Routine 05/10/2021 8:50 AM ELIGIBILITY TECHNICIAN documented in this encounter Visit Diagnoses Not on filedocumented in this encounter
--- OUTSIDE RECORDS SUMMARY | 2024-05-04 18:43 | XMS_ITS | Referral Summary ---
Author Organization [facility] Address [address] [place] [address] Care Team Providers Care Health Safety Engineer Name Role Phone Janiya Trotter NP Primary Care Provider +1- [phone] Allergies No known active allergies Medications collagenase [...] Assessment & Plan (10/09/2021 10:54 AM CDT): -Cement Mason Maintenance -encourage diet/exercise Assessment & Plan (10/08/2021 10:27 AM CDT): -Cement Mason Maintenance -encourage diet/exercise Surgical follow-up care 09/17/2013 Acne [...] on file Legal Sex Female 5:11 AM SENIOR NET ENGINEER Gender Identity Not on file Sexual Orientation [...] Advance Directives For more information, please contact: [phone] * Full Code (Latest Code Status on File) Date Activated Date Inactivated Comments 10/07/2021 12:36 PM 10/09/2021 5:43 PM Care Teams Health Safety Engineer Relationship Specialty Start Date End Date Janiya Trotter NP [address] [place] [address] PCP - General Internal Medicine 10/07/21
--- OUTSIDE RECORDS SUMMARY | 2024-05-04 18:43 | XMS_ITS | Encounter Summary ---
Author Organization [facility] Address [address] [place] [address] Care Team Providers Care Building Materials Sales Attendant Name Role Phone Jesika Meza MD Primary Care Provider +1- [phone] Reason for Visit * Reason Comments Shortness of Breath Encounter Details Date Type Department Care Team (Late st Contact Info) Description 12/21/2020 10:43 AM CDT - 12/21/2020 1:50 PM CDT Emergency [facility] Emergency Department [address] [place] [id number] Moderate persistent asthma with exacerbation (Primary Dx); Acute bronchitis, unspecified organism Discharge Disposition: Discharge to home or self care Social History Tobacco Use Types Packs/Day Years Used Date Smoking Tobacco: Former Comments No Sex and Gender Information Value Date Recorded Sex Assigned at Not on file 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 ER - [phone] [facility] ER - [phone] [facility] ER - [phone] You may receive a call from one [...] Care Everywhere. 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 ER - [phone] [facility] ER - [phone] [facility] ER - [phone] You may receive a call from one of our facilities to see how you are doing over the next week or ifyou have any updated results (lab or imaging) and it will likely show up as a [phone]) area code number you may not recognize. Please ensure you are able to be contacted. Patient Instructed to Follow Up With [facility] Emergency Department [address] [facility] [address] If symptoms worsen Jesika Meza MD [address] [facility] [address] In 3 days Condition on Departure Vitals: 12/21/20 1026 BP: 140/87 Pulse: 99 Resp: 18 Temp: 36.8 ??C (98.2 ??F) SpO2: 96% John Lane MS, PA-C Emergency Services, [facility] [address] PA 12/21/[address] PA 12/21/20 1347 * Rosalva Orr RN - 12/21/2020 10:43 AM CDT Bed: [facility] Expected date: Expected time: Means of arrival: [...] 65(L) 90 - 130 mL/min/1.7 3 m2 [facility] Comment: Interpretive Data Reference Interval Normal ?>/= [...] [facility] LAB BLOOD ORDERABLES Juliana mercado Result [facility] [place] [address] * (ABNORMAL) Differential, auto (12/21/2020 11:17 AM CDT) Neutrophil abs 2.9 1.7 - 6.5 K/cumm [facility] Imm gran abs 0.0 0.0 - 0.1 K/cumm [facility] Lymphocyte abs 2.0 0.8 - 3.3 K/cumm [facility] Monocyte abs 0.5 0.2 - 0.8 K/cumm [facility] Eosinophil abs 0.6(H) 0.0 - 0.5 K/cumm [facility] Basophil abs 0.0 0.0 - 0.1 K/cumm [facility] Neutrophil pct 47.8 % [facility] Comment: Interpretive Data Percent cell count reference ranges are not reported, since discordance with absolute values may lead to misinterpretation of CBC data. Current Interpretive Data was last revised on 2017. Imm gran pct 0.3 % [facility] Comment: Interpretive Data Percent cell count reference ranges are not reported, since discordance with absolute values may lead to misinterpretation of CBC data. Current Interpretive Data was last revised on 2017. Lymphocyte pct 33.5 % [facility] Comment: Interpretive Data Percent cell count reference ranges are not reported, since discordance with absolute values may lead to misinterpretation of CBC data. Current Interpretive Data was last revised on 2017. Monocyte pct 7.7 % [facility] Comment: Interpretive Data Percent cell count reference ranges are not reported, since discordance with absolute values may lead to misinterpretation of CBC data. Current Interpretive Data was last revised on 2017. Eosinophil pct 10.0 % [facility] Comment: Interpretive Data Percent cell count reference ranges are not reported, since discordance with absolute values may lead to misinterpretation of CBC data. Current Interpretive Data was last revised on 2017. Basophil pct 0.7 % [facility] Comment: Interpretive Data Percent cell count reference ranges are not reported, since discordance with absolute values may lead to misinterpretation of CBC data. Current Interpretive Data was last revised on 2017. Blood 12/21/2020 11:1 7 AM CDT 12/21/2020 11:30 AM CDT John [facility] LAB BLOOD ORDERABLES Juliana mercado Result [facility] [place] [address] * COVID-19 Coronavirus RNA Nasopharyngeal (12/21/2020 11:17 AM CDT) COVID-19 RNA Negative Negative [facility] Comment: Interpretive data: Synonyms for this test include: PCR and NAAT . ??This test is performed using the eWise Xpert Xpress assay. This is a real-time [...] May 27, 2020. Employeed in healthcare? No [facility] status? No [facility] Group care resident? No [facility] Hospitalized? No [facility] Is patient in ICU? No [facility] Symptomatic as defined by CDC? Yes [facility] Nasopharyngeal 12/21/2020 11 :17 AM CDT 12/21/2020 11:32 AM CDT Narrative [facility] - 12/21/2020 12:45 PM CDT What is the reason for testing?->Bed placement or semi-private room Date of Symptom Onset->11/16/20 John [facility] MICROBIOLOGY - GENERA L ORDERABLES Final Result Performing Organization Address [facility] Co de Phone Number [facility] Department [place] [address] * Troponin I high-sensitivity (12/21/2020 11:17 AM CDT) Pathologist [facility] Trop I hs 8 <=17 ng/L [facility] Comment: Interpretive Data For further hscTnI resources including the diagnostic algorithm and an aid in interpretation, copy and paste this link: https://bjhlab.testcatalog.org/show/[email or web address] Current Interpretive Data last revised 2019. Blood 12/21/2020 11:1 7 AM CDT 12/21/2020 11:30 AM CDT John [facility] LAB BLOOD ORDERABLES Juliana l Result Performing Organization Address [facility] Co de Phone Number [facility] Department [place] [address] * Comprehensive metabolic panel (12/21/2020 11:17 AM CDT) Sodium 141 135 - 145 mmol/L [facility] Potassium, pl 4.5 3.3 - 4.9 mmol/L [facility] Chloride 106 97 - 110 mmol/L [facility] CO2 31 22 - 32 mmol/L [facility] Anion gap 4 2 - 15 mmol/L [facility] BUN 15 8 - 25 mg/dL [facility] Creatinine 0.99 0.60 - 1.10 mg/dL [facility] Glucose 98 70 - 199 mg/dL [facility] Comment: Interpretive Data Fasting glucose >/= 126 [...] 2017. Calcium 9.0 8.5 - 10.3 mg/dL [facility] Bilirubin, total 0.4 0.1 - 1.2 mg/dL [facility] Protein, pl 6.9 6.5 - 8.5 g/dL [facility] Albumin 4.1 3.5 - 5.0 g/dL [facility] Alk phos 59 40 - 130 Units/L [facility] ALT 21 7 - 45 Units/L [facility] AST 24 10 - 45 Units/L [facility] Blood 12/21/2020 11:1 7 AM CDT 12/21/2020 11:29 AM CDT John [facility] LAB BLOOD ORDERABLES Juliana l Result [facility] [place] [address] * (ABNORMAL) CBC with auto differential (12/21/2020 11:17 AM CDT) Pathologist [facility] WBC 6.1 3.8 - 9.9 K/cumm [facility] Hgb 14.4 11.9 - 15.5 g/dL [facility] Hct 44.7 35.6 - 45.5 % [facility] Plt 273 150 - 400 K/cumm [facility] MPV 10.0 9.1 - 12.3 fL [facility] RBC 4.99 3.90 - 5.20 M/cumm [facility] MCV 89.6 81.3 - 96.4 fL [facility] MCH 28.9 27.1 - 33.3 pg [facility] MCHC 32.2(L) 32.3 - 35.7 g/dL [facility] RDW CV 13.4 11.1 - 14.9 % [facility] RDW SD 44.0 35.7 - 48.1 fL [facility] NRBC abs 0.00 0.00 - 0.01 K/cumm [facility] Blood 12/21/2020 11:1 7 AM CDT 12/21/2020 11:30 AM CDT John [facility] LAB BLOOD ORDERABLES Juliana mercado Result Performing Organization Address City/State/[facility] Co de Phone Number [facility] Department [place] [address] * ECG 12-LEAD (12/21/2020 10:42 AM CDT) Narrative [facility] - 12/21/2020 10:42 AM CDT Ebony Anne [...] workup in the ED ?? Procedure Note Ebnoy Anne MD - 12/21/2020 10:42 AM CDT [...] Laura MD ECG ORDERABLES Final R esult [facility] documented in this encounter Visit Diagnoses Diagnosis Moderate persistent asthma with exacerbation- Primary Unspecified asthma, with exacerbation Acute bronchitis, unspecified organism documented in this encounter Administered Medications Inactive Administered Medications - up to 3 most recent administrations Medication Order MAR Action Action Date Dose Rate Site albuterol 2.5 mg/0.5 mL nebulizer solution 5 mg 5 mg, nebulization, Once (respiratory technician), On Sun12/21/20 at 1101, For 1 dose, Indications: COPD ExacerbationIndications:COPD Exacerbation Given 12/21/2020 11:07 AM CDT 5 mg albuterol 2.5 mg/0.5 mL nebulizer solution 5 mg 5 mg, nebulization, Once (respiratory technician), On Sun12/21/20 at 1210, For 1 dose, Indications: COPD ExacerbationIndications:COPD Exacerbation Given 12/21/2020 12:24 PM CDT 5 mg ipratropium (ATROVENT) 0.02 % nebulizer solution 0.5 mg 0.5 mg, nebulization, Once (respiratory technician), On Sun12/21/20 at 1101, For 1 dose, [...] 5 mg (COMPLETED) 5 mg, nebulization, Once (respiratory technician), On Sun12/21/20 at 1101, For 1 dose, Indications: COPD Exacerbation 1107 (Given - Provid er: Melva Best RN) albuterol 2.5 mg/0.5 mL nebulizer solution 5 mg (COMPLETED) 5 mg, nebulization, Once (respiratory technician), On Sun12/21/20 at 1210, For 1 dose, Indications: COPD Exacerbation 1224 (Given - Provid er: Melva Best RN) ipratropium (ATROVENT) 0.02 % nebulizer solution 0.5 mg (COMPLETED) 0.5 mg, nebulization, Once (respiratory technician), On Sun12/21/20 at 1101, For 1 dose, [...] documented as of this encounter Care Teams Building Materials Sales Attendant Relationship Specialty Start Date End Date Jesika Meza MD PCP - General Family Medicine 07/30/20 02/24/21 documented as of this encounter
--- OUTSIDE RECORDS SUMMARY | 2024-05-04 18:43 | XMS_ITS | Encounter Summary ---
Author Organization [facility] Healthcare Address [address] [place] [address] Care Team Providers Care Lobster Catcher Name Role Phone Janiya Trotter NP Primary Care Provider +1- [phone] Reason for Visit * Reason Comments Animal Bite * Auth/Cert Specialty Diagnoses / Procedures Referred By Contac t Referred To Contact Diagnoses Cellulitis Animal bite Cat bite of left lower leg, initial encounter Procedures NA Referral ID Status Reason Start Date Expiration Date Visits Re quested Visits Authorized [id number] 1 1 Encounter Details Date Type Department Care Team (Late st Contact Info) Description 10/07/2021 4:45 AM CDT - 10/09/2021 1:42 PM CDT Emergency [facility] [address] [place] [address] Nahomy Figueroa MD [address] [place] [address] Helena Anne MD [address] [place] [address] Aruna Fonseca MD [address] [place] [address] Patricia Newby MD [address] [place] [address] Cat bite of left lower leg, initial [...] on file 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 Please contact the [facility] Inpatient Consult Service at the number listed [...] Age: 56 y.o. 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 * Animal bite Assessment & [...] arranged?: No (10/08/21 1000) Health Insurance Coverage: [employer] Prescription Coverage: yes Pharmacy: [facility] Primary Care Provider: Janiya Trotter NP Prior to Admission: Primary Caregiver: Self Support System: Children Support system contact info (name, phone, availablity): S/O Frank Burton [phone] Home Care Services: No Durable Medical Equipment: [...] at Home) Community Resources: Case Managment (comment) (Employee Health Rn from [employer]) (10/07/21 1115) Dialysis: no Behavioral Health Services: Behavioral Health Services: No (10/08/21 8292) Patient expects to be Discharged to: Private residence, (10/08/21 3092) Additional Information: Patient is independent, lives with [...] Collaboration with patient, MD, direct care nurse, Auto Rebuilder, Nurse Coordinator and other members of the health care team to assure needed interventions completed. 2. Return patient to optimal level of self-care post discharge. 3. Employee Health Rn will follow for Discharge Planning - interventions [...] Age: 56 y.o. 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 History and Physical Division of [facility] Medicine Name: Shantel Del Real Today: October [...] have reviewed and summarized above findings from [facility] and Care Everywhere. 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 Patient will have follow up in [facility] wound clinic for ongoing monitoring. Post Procedure [...] from the original note were not included. [facility] Acute Care Surgery Consultation Encounter Date: 10/09/21 Patient Identification Patient's Primary Care Physician: Janiya Trotter NP Name: Shantel Del Real Age: 56 y.o. Sex: female Reason for Consultation: Physician requesting consult: has asked that we see Shantel Del Real for evaluation of L leg cat [...] 10 days of Augmentin. She presents to [facility] with concerns for poor wound healing. 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 female Admit: 10/07/2021 Bed: [id number] Subjective Chief complaint: cat bite Interval History: [...] Age: 56 y.o. 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 us Patricia Newby MD LAB BLOOD ORDERABLES Juliana mercado Result [facility] Department [place] [address] * Incision and Drainage (10/08/2021 7:30 PM CDT) Narrative Simin Perez MD - 10/08/2021 7:30 PM CDT Johanna Mojica MD ? 10/09/2021 ??6:26 AM Incision and Drainage Date/Time: 10/08/2021 7:30 PM Performed by: Johanna Mojica MD Authorized by: Johanna Mojica MD [place] Protocol: RN Notified of Procedure: yes ?? Informed consent: ??Risks, benefits, alternatives discussed and patient/inside sales account representative/guardian agrees and accepts Patient's stated name/ [...] 8:29 AM CDT) COVID-19 RNA Negative Negative [facility] Nasopharyngeal 10/07/2021 8: 29 AM CDT 10/07/2021 8:41 AM CDT [facility] - 10/07/2021 9:21 AM CDT Is the patient experiencing any symptoms consistent with COVID (eg. Fever, cough, shortness of breath)?->No What is the reason for testing?->Bed placement or semi-private room (Rapid) ??Interpretive data: Synonyms for this test include: PCR and NAAT . ??This test is performed using the [employer] Xpert Xpress plus assay. This is a [...] . ??This test is performed using the CepDoubleVerify Xpert Xpress plus assay. This is a [...] MICROBIOLOGY - GEN ERAL ORDERABLES Final Result [facility] Department [place] [address] * XR Tibia Fibula Left 2 Views [...] * (ABNORMAL) eGFR (10/07/2021 3:21 AM CDT) [facility] eGFR 69(L) 90 - 130 mL/min/1. 73 m2 [facility] Comment: Interpretive Data Reference Interval Normal [...] MD LAB BLOOD ORDERABLES F inal Result [facility] Department [place] [address] * Differential, auto (10/07/2021 3:21 AM CDT) Pathologist [facility] Neutrophil abs 3.1 1.7 - 6.5 K/cumm [facility] Imm gran abs 0.0 0.0 - 0.1 K/cumm [facility] Lymphocyte abs 2.3 0.8 - 3.3 K/cumm [facility] Monocyte abs 0.6 0.2 - 0.8 K/cumm [facility] Eosinophil abs 0.4 0.0 - 0.5 K/cumm [facility] Basophil abs 0.0 0.0 - 0.1 K/cumm [facility] Neutrophil pct 48.5 % [facility] Comment: Interpretive Data Percent cell count reference ranges are not reported, since discordance with absolute values may lead to misinterpretation of CBC data. Current Interpretive Data was last revised on 2017. Imm gran pct 0.3 % [facility] Comment: Interpretive Data Percent cell count reference ranges are not reported, since discordance with absolute values may lead to misinterpretation of CBC data. Current Interpretive Data was last revised on 2017. Lymphocyte pct 35.6 % [facility] Comment: Interpretive Data Percent cell count reference ranges are not reported, since discordance with absolute values may lead to misinterpretation of CBC data. Current Interpretive Data was last revised on 2017. Monocyte pct 8.6 % [facility] Comment: Interpretive Data Percent cell count reference ranges are not reported, since discordance with absolute values may lead to misinterpretation of CBC data. Current Interpretive Data was last revised on 2017. Eosinophil pct 6.7 % [facility] Comment: Interpretive Data Percent cell count reference ranges are not reported, since discordance with absolute values may lead to misinterpretation of CBC data. Current Interpretive Data was last revised on 2017. Basophil pct 0.3 % [facility] Comment: Interpretive Data Percent cell count reference ranges are not reported, since discordance with absolute values may lead to misinterpretation of CBC data. Current Interpretive Data was last revised on 2017. Blood 10/07/2021 3:21 AM CDT 10/07/2021 3:34 AM CDT us Baldev Beckham MD LAB BLOOD ORDERABLES F inal Result [facility] Department [place] [address] * CRP (acute phase) (10/07/2021 3:21 AM CDT) CRP 4.2 <=10.0 mg/L [facility] Blood 10/07/2021 3:21 AM CDT 10/07/2021 3:34 AM CDT Baldev Beckham MD LAB BLOOD ORDERABLES F inal Result [facility] [place] [address] * Erythrocyte sedimentation rate (10/07/2021 3:21 AM CDT) Pathologist [facility] Erythrocyte sedimentation rate 30 1 - 30 mm/hr [facility] Blood 10/07/2021 3:21 AM CDT 10/07/2021 3:34 AM CDT Baldev Beckham MD LAB BLOOD ORDERABLES F inal Result Performing Organization Address [facility] de Phone Number [facility] Department [place] [address] * Basic metabolic panel (10/07/2021 3:21 AM CDT) Pathologist [facility] Sodium 141 135 - 145 mmol/L [facility] Potassium, pl 4.2 3.3 - 4.9 mmol/L [facility] Chloride 102 97 - 110 mmol/L [facility] CO2 30 22 - 32 mmol/L [facility] Anion gap 9 2 - 15 mmol/L [facility] BUN 19 8 - 25 mg/dL [facility] Creatinine 0.97 0.60 - 1.10 mg/dL [facility] Glucose 100 70 - 199 mg/dL [facility] Comment: Interpretive Data Fasting glucose >/= [...] 2017. Calcium 9.3 8.5 - 10.3 mg/dL [facility] Blood 10/07/2021 3:21 AM CDT 10/07/2021 3:34 AM CDT Baldev Beckham MD LAB BLOOD ORDERABLES F inal Result Performing Organization Address City/[facility]/ZIP Co de Phone Number [facility] [place] [address] * (ABNORMAL) CBC with auto differential (10/07/2021 3:21 AM CDT) [facility] WBC 6.4 3.8 - 9.9 K/cumm [facility] Hgb 14.1 11.9 - 15.5 g/dL [facility] Hct 43.9 35.6 - 45.5 % [facility] Plt 269 150 - 400 K/cumm [facility] MPV 9.8 9.1 - 12.3 fL [facility] RBC 4.91 3.90 - 5.20 M/cumm [facility] MCV 89.4 81.3 - 96.4 fL [facility] MCH 28.7 27.1 - 33.3 pg [facility] MCHC 32.1(L) 32.3 - 35.7 g/dL [facility] RDW CV 12.9 11.1 - 14.9 % [facility] RDW SD 42.5 35.7 - 48.1 fL [facility] NRBC abs 0.00 0.00 - 0.01 K/cumm [facility] Blood 10/07/2021 3:21 AM CDT 10/07/2021 3:34 AM CDT Baldev Beckham MD LAB BLOOD ORDERABLES F inal Result Performing Organization Address City/[facility]/ZIP Co de Phone Number [facility] Department [address] [place] [address] documented in this encounter Visit Diagnoses Diagnosis [...] RN) 0506 (New Bag - Provider: Mark Espaan RN)1400 (New Bag - Provider: Pavithra Corey [...] 10/09/2021 documented in this encounter Care Teams Lobster Catcher Relationship Specialty Start Date End Date Janiya Trotter RACK WASHER [address] [place] [address] PCP - General Internal Medicine 10/07/21 documented as of this encounter
--- OUTSIDE RECORDS SUMMARY | 2024-05-04 18:43 | XMS_ITS | Encounter Summary ---
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 * Chest Pain (AfterCare(R) Instructions(ER/ED)) (Pashto) documented in this encounter Medications at Time [...] Endorses SOB when this occurs. No hx KS/CVA. Endorses productive cough with clear sputum unchanged [...] 12-LEAD (12/15/2021 11:28 AM CDT) Narrative [facility] - 12/15/2021 11:28 AM CDT Yung Saldana [...] Saldana MD ECG ORDERABLES Final Resul t [facility] * Troponin I high-sensitivity 2-hour (12/15/2021 11:26 AM CDT) Trop I hs <4 <=17 ng/L [facility] Comment: Interpretive Data For further hscTnI resources including the diagnostic algorithm and an aid in interpretation, copy and paste this link: https://bjhlab.testcatalog.org/show/hsTrop-[email or web address] Current Interpretive Data last revised 2019. Trop I hs delta 0 ng/L [facility] Trop I hs interp Insignificant [facility] Blood 12/15/2021 11:2 6 AM CDT 12/15/2021 11:38 AM CDT us Tank Duarte MD LAB BLOOD ORDERABLES Final Result [facility] Department [place] [address] * XR Chest Pa Lateral 2 Views [...] * (ABNORMAL) eGFR (12/15/2021 9:45 AM CDT) [facility] eGFR 69(L) 90 - 130 mL/min/1. 73 m2 [facility] Comment: Interpretive Data Reference Interval Normal [...] BLOOD ORDERABLES Final Result Performing Organization Address City/State/[facility] Co de Phone Number [facility] Department [place] [address] * Differential, auto (12/15/2021 9:45 AM CDT) Neutrophil abs 3.0 1.7 - 6.5 K/cumm [facility] Imm gran abs 0.0 0.0 - 0.1 K/cumm [facility] Lymphocyte abs 2.2 0.8 - 3.3 K/cumm [facility] Monocyte abs 0.5 0.2 - 0.8 K/cumm [facility] Eosinophil abs 0.4 0.0 - 0.5 K/cumm [facility] Basophil abs 0.0 0.0 - 0.1 K/cumm [facility] Neutrophil pct 49.0 % [facility] Comment: Interpretive Data Percent cell count reference ranges are not reported, since discordance with absolute values may lead to misinterpretation of CBC data. Current Interpretive Data was last revised on 2017. Imm gran pct 0.3 % [facility] Comment: Interpretive Data Percent cell count reference ranges are not reported, since discordance with absolute values may lead to misinterpretation of CBC data. Current Interpretive Data was last revised on 2017. Lymphocyte pct 35.9 % [facility] Comment: Interpretive Data Percent cell count reference ranges are not reported, since discordance with absolute values may lead to misinterpretation of CBC data. Current Interpretive Data was last revised on 2017. Monocyte pct 7.8 % [facility] Comment: Interpretive Data Percent cell count reference ranges are not reported, since discordance with absolute values may lead to misinterpretation of CBC data. Current Interpretive Data was last revised on 2017. Eosinophil pct 6.7 % [facility] Comment: Interpretive Data Percent cell count reference ranges are not reported, since discordance with absolute values may lead to misinterpretation of CBC data. Current Interpretive Data was last revised on 2017. Basophil pct 0.3 % [facility] Comment: Interpretive Data Percent cell count reference ranges are not reported, since discordance with absolute values may lead to misinterpretation of CBC data. Current Interpretive Data was last revised on 2017. Blood 12/15/2021 9:45 AM CDT 12/15/2021 10:08 AM CDT us Yung Saldana MD LAB BLOOD ORDERABLES Final Result [facility] Department [place] [address] * Troponin I high-sensitivity series (baseline, 2hr, 4hr, 6hr) (12/15/2021 9:45 AM CDT) Trop I hs <4 <=17 ng/L [facility] Comment: Interpretive Data For further hscTnI resources including the diagnostic algorithm and an aid in interpretation, copy and paste this link: https://bjhlab.testcatalog.org/show/hsTrop-[email or web address] Current Interpretive Data last revised 2019. Blood 12/15/2021 9:45 AM CDT 12/15/2021 10:08 AM CDT us Yung Saldana MD LAB BLOOD ORDERABLES Final Result [facility] Department [place] [address] * Comprehensive metabolic panel (12/15/2021 9:45 AM CDT) Sodium 140 135 - 145 mmol/L [facility] Potassium, pl 4.2 3.3 - 4.9 mmol/L [facility] Chloride 102 97 - 110 mmol/L [facility] CO2 29 22 - 32 mmol/L [facility] Anion gap 9 2 - 15 mmol/L [facility] BUN 17 8 - 25 mg/dL [facility] Creatinine 0.97 0.60 - 1.10 mg/dL [facility] Glucose 114 70 - 199 mg/dL [facility] Comment: Interpretive Data Fasting glucose >/= [...] 2017. Calcium 9.4 8.5 - 10.3 mg/dL [facility] Bilirubin, total 0.5 0.1 - 1.2 mg/dL [facility] Protein, pl 7.5 6.5 - 8.5 g/dL [facility] Albumin 4.2 3.5 - 5.0 g/dL [facility] Alk phos 70 40 - 130 Units/L [facility] ALT 20 7 - 45 Units/L [facility] AST 23 10 - 45 Units/L [facility] Blood 12/15/2021 9:45 AM CDT 12/15/2021 10:08 AM CDT Yung Saldana MD LAB BLOOD ORDERABLES Final Result Performing Organization Address City/[facility]/ZIP Co de Phone Number [facility] [place] [address] * (ABNORMAL) CBC with auto differential (12/15/2021 9:45 AM CDT) [facility] WBC 6.1 3.8 - 9.9 K/cumm [facility] Hgb 14.9 11.9 - 15.5 g/dL [facility] Hct 45.9(H) 35.6 - 45.5 % [facility] Plt 277 150 - 400 K/cumm [facility] MPV 10.1 9.1 - 12.3 fL [facility] RBC 5.09 3.90 - 5.20 M/cumm [facility] MCV 90.2 81.3 - 96.4 fL [facility] MCH 29.3 27.1 - 33.3 pg [facility] MCHC 32.5 32.3 - 35.7 g/dL [facility] RDW CV 12.9 11.1 - 14.9 % [facility] RDW SD 42.5 35.7 - 48.1 fL [facility] NRBC abs 0.00 0.00 - 0.01 K/cumm [facility] Blood (Blood, Venous) 12/15/2021 9:45 AM CDT 12/15/2021 10:08 AM CDT Yung Saldana MD LAB BLOOD ORDERABLES Final Result [facility] [place] [address] documented in this encounter Visit Diagnoses Diagnosis [...] 12/15/2021 documented in this encounter Care Teams Pediatric Np Relationship Specialty Start Date End Date Janiya Trotter DRIER OPERATOR HELPER [address] [place] [address] PCP - General Internal Medicine 10/07/21 documented as of this encounter
--- OUTSIDE RECORDS SUMMARY | 2024-05-04 18:43 | XMS_ITS | Encounter Summary ---
Author Organization [facility] Address [address] [place] [address] Phone Care Team Providers Care Architectural Intern Name Role Phone Jesika Meza MD Primary Care Provider +1- [phone] Reason for Visit * Reason Comments Skin Exam SKIN LESION ON RT LO WER LEG Encounter Details Date Type Department Care Team (Late st Contact Info) Description 08/31/2020 2:30 PM CDT Office Visit [facility] Dermatology [address] [facility] [address] [place] [address] Davide Antonio MD [address] [place] [address] [place], [place] [id number] Necrobiosis lipoidica (Primary Dx); Solar lentiginosis Social History Tobacco Use Types Packs/Day Years Used Date Smoking Tobacco: Former Comments Unknown Sex and Gender Information Value Date Recorded Sex Assigned at Not on file 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 [id number] CC: Rash follow up HPI: Shantel Del [...] bonilla Prep: EtOH MEDICATION: Kenalog 10mg vial [facility] [id number] STRENGTH: 10 mg/ml AMOUNT ADMINISTERED: 0.8 ml AMOUNT DISCARDED: 4.2 ml COMPLICATIONS: None UNIVERSAL PROTOCOL: Time-Out performed. RTC: PRN. Patient was instructed to return sooner should s/he develop any new, changing and/or worsening lesions, side effects of any recommended treatments, or as needed. Sandra Kwan MD PhD Dermatology, PGY-3 08/31/20, 2:49 PM [...] lentiginosis documented in this encounter Care Teams Architectural Intern Relationship Specialty Start Date End Date Jesika Meza MD PCP - General Family Medicine 07/30/20 02/24/21 documented as of this encounter
--- OUTSIDE RECORDS SUMMARY | 2024-05-04 18:43 | XMS_ITS | Clinical Summary ---
Author Organization 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
--- OUTSIDE RECORDS SUMMARY | 2024-05-04 18:43 | XMS_ITS | Encounter Summary ---
Author Organization [facility] Facility Care Team Providers Care Jewelry Racker Name Role Phone Unavailable Primary Care Provider Unavailabl e Encounter Details Date Type Department Care Team (Late st Contact Info) Description 08/13/2013 - 08/13/2013 11:59 PM CDT Hospital Encounter [facility] Octavio Chambers MD [address] [place] [address] Family history of ischemic heart disease Social History Tobacco Use Types Packs/Day Years Used Date Smoking Tobacco: Never Assessed Comments Unknown Sex and Gender Information Value Date Recorded Sex Assigned at Not on file 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
--- OUTSIDE RECORDS SUMMARY | 2024-05-04 18:43 | XMS_ITS | Encounter Summary ---
Author Organization [facility] Healthcare Address [address] [place] [address] Care Team Providers Care Horizontal Drill Operator Name Role Phone Janiya Trotter NP Primary Care Provider [phone] Encounter Details Date Type Department Care Team (Late st Contact Info) Description 11/14/[address] 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
== END 2024-04-28 11:38 | disposition home or self-care (01) ==
LOC: ANHED 11:07
PROVIDERS: Emergency Provider Physician Assistant
DX: J10.1 Influenza due to other identified influenza virus with other respiratory manifestations (principal); J45.901 Unspecified asthma with (acute) exacerbation; Z20.822 Contact with and (suspected) exposure to COVID-19; E11.9 Type 2 diabetes mellitus without complications; Z87.442 Personal history of urinary calculi; Z87.891 Personal history of nicotine dependence
CPT/HCPCS: 87637; 94640; 99283; J7512

== ENCOUNTER 2024-05-07 08:04 | Emergency (ER) | payer OTHER, SELFPAY ==
--- NOTE | ~2024-05-07 | XR_ITS ---
XR chest 2V Ordering provider: Shaneka Gil NP History: 58 years Female with . diff breathing x 1 week . Comparison: November 2020 FINDINGS: MEDIASTINUM: The cardiac silhouette is not enlarged. LUNGS: No infiltrates, effusions or pneumothorax. OTHER: No free air under the diaphragm. Degenerative changes of the spine. IMPRESSION: No acute cardiopulmonary pathology. Reviewed, dictated and finalized at location [facility]. [facility]
--- NOTE | 2024-05-07 08:08 | ED_ITS ---
HPI - URI/Sore Throat General Chief Complaint: Upper Respiratory Infection Stated Complaint: post flu, sick ,difficulty breathing,asthmatic Time Seen by Provider: 05/07/24 08:20 Source: patient and RN notes reviewed Mode of arrival: ambulatory Limitations: no limitations History of Present Illness HPI Narrative: 58 year female with history of asthma presents with concern for wheezing and SOB. She was diagnosed with flu lat week. She completed a round of prednisone. She is still having wheezing and shortness of breath. She denies fever. Reports some runny nose. Denies nasal congestion. Reports she has been using her albuterol nebulizer every 6 hours at home without much relief, reports that makes her feel like she is ?choking?. MD elicited complaint: cough Related Data Allergies Allergy/AdvReac Type Severity Reaction Status Date / Time No Known Allergies Allergy Mild Verified 05/07/24 08:57 Review of Systems Review of Systems: CONSTITUTIONAL: Reports malaise. Denies chills, sweats, or fever. EYES: Denies visual changes, redness, or discharge. ENT: Reports rhinorrhea. Denies congestion, sinus pain, otalgia and sore throat. CARDIOVASCULAR: Denies chest pain, palpitations, or edema. RESPIRATORY: Reports cough, dyspnea. GASTROINTESTINAL: Denies abdominal pain, nausea, vomiting, diarrhea SKIN: Denies rash or itching. MUSCULOSKELETAL: Denies myalgia. NEUROLOGIC: Denies headache. All systems reviewed & are unremarkable except as noted in HPI and below PMFSH Past Medical History Medical History Asthma Diabetes Kidney stone Right ankle injury Surgical History Surgical History History of adenoidectomy History of ankle surgery RT ankle-1998 History of lithotripsy 2009 History of tonsillectomy Family History Family History Father , Kidney problems No problems noted. Mother Acute myocardial infarction Heart disease Asthma Social History Social History Smoking status: Former smoker Second hand tobacco smoke exposure: No Alcohol intake: never Substance use: never Living arrangements: with family Occupation/Education: occupation Gender identity (if verbalized by the patient): Female Comments At time of signature, agree with nursing past medical, surgical, social and family history. There is no relevant family history pertinent to the presenting complaint Exam Narrative: GENERAL: Nontoxic-appearing, well-nourished, and in no acute distress. HEAD: Normocephalic EYES: PERRLA, conjunctivae clear ENT: Nares clear, turbinates edematous and erythematous, clear discharge. Mucous membranes moist. TM pearly parra with dull light reflex bilaterally; no tragal tenderness. Oropharynx not erythematous without lesions. Tonsils not enlarged and without exudate, no drooling, no hoarseness, no trismus, uvula midline. NECK: Supple. No lymphadenopathy CHEST: Lung sounds tight, inspiratory and expiratory wheeze throughout. No rhonchi, rales, or stridor. No respiratory distress, speaks in full sentences. HEART: Regular rate and rhythm. No murmur heard. SKIN: Warm, dry, no rash. NEURO: Alert and oriented x3. PSYCH: Normal mood and affect Course Course Emergency Course: Patient is aware of diagnosis, understands and agrees to treatment plan. Anticipatory guidance given. Patient agrees to follow-up as directed and is aware of reasons to seek care at the emergency department. Portions of this record may have been created with voice recognition software Level of Care: Express Care Visit Reevaluation(s) Reevaluation #1: Patient was given a DuoNeb and Solu-Medrol IM. Lung sounds improved after do a bed, still scattered wheezing noted. Patient reports improvement in symptoms. Anticipatory guidance given Date: 05/07/24 Time: 09:05 Vital Signs Vital signs: Reviewed. MDM - URI/Sore Throat MDM Narrative Medical decision making narrative: Differential diagnosis considered: Asthma exacerbation, Bear virus, strep pharyngitis, allergic rhinitis, upper respiratory tract infection, sinusitis, rhinosinusitis, nasopharyngitis. viral pharyngitis, otitis media, otitis externa, pneumonia, bronchitis, viral cough syndrome, viral syndrome, and influenza. Exam findings show no acute concerns or changes; patient is non- toxic appearing and is in no distress. Patient is appropriate for outpatient treatment and follow-up. Lab Data Attestation: I reviewed the patient's lab results. Critical Care Time Critical Care Time Critical Care Time: No Discharge Plan Discharge Clinical Impression: Asthma exacerbation Patient Disposition: Home, Self-Care Condition: Stable Instructions: Antibiotic Form, Asthma (ED) Additional Instructions: Take medicines as directed. Visit your primary care doctor if: You have wheezing, shortness of breath, or a cough even if taking medicine to prevent attacks. You have thickening of sputum. Your sputum changes from clear or white to yellow, green, parra, or bloody. You have any problems that may be related to the medicines you are taking (such as a rash, itching, swelling, or trouble breathing). You are using a reliever medicine more than 2 to 3 times per week. Visit the ER if: You are short of breath even at rest or when doing very little physical activity. You develop difficulty eating, drinking, or talking due to asthma symptoms. You have chest pain or you feel that your heart is beating fast. You are lightheaded, dizzy, faint or have bluish lips or fingernails. You have a fever or persistent symptoms for more than 2 to 3 days or symptoms suddenly get worse. You seem to be getting worse and are unresponsive to treatment during an asthma attack. Patient Language: Lithuanian Prescriptions: New azithromycin [Zithromax Z-Maxime] 250 mg tablet See Rx Instructions .ROUTE .COMPLEX Qty: 6 0RF Rx Instructions: take 500 mg today (day 1), then 250 mg for 4 days (days 2-5) methylprednisolone [Medrol (Maxime)] 4 mg tablets,dose pack See Rx Instructions .ROUTE .COMPLEX Qty: 21 0RF Rx Instructions: orally per package directions ipratropium-albuterol 0.5 mg-3 mg(2.5 mg base)/3 mL solution for nebulization 3 ml inhalation Q4H PRN (Reason: shortness of breath) Qty: 90 0RF No Action albuterol sulfate 90 mcg/actuation HFA aerosol inhaler 2 puff inhalation QID PRN (Reason: shortness of breath or wheezing) Qty: 8.5 0RF Follow-up/Referrals: UNKNOWN,DOCTOR [Primary Care Provider] - Stand Alone Forms: Work/School Release IP Time of Disposition: 09:10
[2024-05-07 08:16] VITALS: BP 150/80; PULSE 99; RESP 20; TEMP 35.7; O2SAT 97
[2024-05-07] MEDS: IPRATROPIUM 0.5 MG/ALBUTEROL SULFATE 2.5 MG AMPUL.NEB 3 ML INHALATION (08:49)
[2024-05-07] MEDS: methylPREDNISolone SOD SUCC 125 MG VIAL IM (08:50)
[2024-05-07 08:51] VITALS: PULSE 90; RESP 24; O2SAT 95
[2024-05-07 08:53] VITALS: PULSE 86; RESP 22; O2SAT 96
== END 2024-05-07 09:17 | disposition home or self-care (01) ==
PROVIDERS: Emergency Provider Nurse Practitioner
DX: J45.901 Unspecified asthma with (acute) exacerbation (principal); E11.9 Type 2 diabetes mellitus without complications; Z87.891 Personal history of nicotine dependence
CPT/HCPCS: 71046; 96372; 99213; G0463; J2919